=== PATIENT | male | born 1950 | race Caucasian/White ===

== ENCOUNTER 2018-12-28 10:37 | Emergency (ER) | payer MEDICARE, OTHER ==
[~2018-12-28] VITALS: Ht 182.9 cm; Wt 91.2 kg
[2018-12-28] MEDS ORDERED: NS IV 1000 ML 1,000 ML IV SCH (10:57)
--- NOTE | 2018-12-28 11:08 | ED Fall/Injury ---
General Stated Complaint: HEAD INJ; VOMITING Source: patient, family, spouse Exam Limitations: no limitations History of Present Illness Date Seen by Provider: Dec 28, 2018 Time Seen by Provider: 10:48 Initial Comments The patient presents to ER by private conveyance with chief complaint of a fall last night while taking the rain gauge when he turned around he lost his footing and balance and fell over onto his right knee and then struck the right side of his parietal scalp. He says he has a small hematoma there. He did not lose consciousness and did not think anything of it at the time. He says it took him a while to get back up but he didn't want to call an ambulance and made his way back in the house. His witnessed him fall. He said this morning however he woke up not feeling well with a headache and nauseated and started vomiting so he was brought in by family member/caregiver. To 3 days ago he was having a cough not feeling well and having chest pain on deep inspiration so he went to urgent care where he was diagnosed with a pneumonia and started on Levaquin which she has been taking for 2 days now. He says his cough is gone and he is feeling much better. He does have a history of smoking about 2 packs of cigarettes per day, drinking beer all day throughout the day and denies any recreational drug use. He is on Plavix. He has never had a heart attack or stent that he is aware of. He has had bowel obstruction resulting in abdominal surgeries but is not having any abdominal pain, diarrhea or constipation. He denies any fevers or chills recently. Daughter also noted some scaling red rash around the patient's pinon and scalp and wanted this addressed. Allergies and Home Medications Allergies Coded Allergies: No Known Drug Allergies (Unverified , 12/28/18) Home Medications Magnesium Oxide 400 Mg Tablet, 400 MG PO BID Prescribed by: NOMI ESPARZA on 12/28/18 1436 Ondansetron 4 Mg Tab.rapdis, 4 MG PO Q6H PRN for NAUSEA/VOMITING Prescribed by: NOMI ESPARZA on 12/28/18 1436 Patient Home Medication List Home Medication List Reviewed: Yes Review of Systems Review of Systems Constitutional: No chills, No fever; malaise, weakness Eyes: Denies Blindness, Denies Blurred Vision Ears, Nose, Mouth, Throat: denies ear pain, denies ear discharge Respiratory: No cough, No short of breath Cardiovascular: No chest pain, No edema, No Hx of Intervention, No palpitations Gastrointestinal: No abdominal pain, No constipation, No diarrhea; nausea, vomiting Genitourinary: No discharge, No dysuria Musculoskeletal: No back pain, No joint pain Skin: No pruritus, No rash; other (abrasion right knee anteriorly) Past Uvvecmt-Ootfhx-Biedmd Hx Patient Social History Alcohol Use: Regular Use Alcohol Beverage of Choice: Beer Recreational Drug Use: No Smoking Status: Current Everyday Smoker Type Used: Cigarettes (2 packs per day) Physical Exam Vital Signs Vital Signs - First Documented Capillary Refill : Height, Weight, BMI Height: '" Weight: lbs. oz. kg; BMI Method: General Appearance: WD/WN, mild distress HEENT: PERRL/EOMI, normal ENT inspection, TMs normal, pharynx normal (mildly dry tongue and oral mucosa), other (negative for raccoon eyes, Nelson sign, hemotympanum. Faintly perceptible hematoma right frontal parietal scalp) Neck: non-tender, full range of motion, normal inspection Cardiovascular: normal peripheral pulses, regular rate, rhythm Respiratory: chest non-tender, lungs clear, no respiratory distress, no accessory muscle use, decreased breath sounds Peripheral Pulses: 2+ Dorsalis Pedis (R), 2+ Left Dors-Pedis (L), 2+ Radial Pulses (R), 2+ Radial Pulses (L) Gastrointestinal: normal bowel sounds, non tender, soft, no organomegaly Extremities: normal range of motion, normal inspection, no pedal edema, normal capillary refill Neurologic/Psychiatric: 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, no motor/sensory deficits, alert, normal mood/affect, oriented x 3 Skin: other (abrasion right knee 2 x 3 cm superficial) Katie Coma Score Best Eye Response: (4) Open Spontaneously Best Verbal Response: (5) Oriented Best Motor Response: (6) Obeys Commands Katie Total: 15 Progress/Results/Core Measures Results/Orders Lab Results Laboratory Tests Test 12/28/18 11:04 12/28/18 14:15 Range/Units White Blood Count 10.8 4.3-11.0 10^3/uL Red Blood Count 4.55 4.35-5.85 10^6/uL Hemoglobin 14.6 13.3-17.7 G/DL Hematocrit 43 40-54 % Mean Corpuscular Volume 94 80-99 FL Mean Corpuscular Hemoglobin 32 25-34 PG Mean Corpuscular Hemoglobin Concent 34 32-36 G/DL Red Cell Distribution Width 12.1 10.0-14.5 % Platelet Count 359 130-400 10^3/uL Mean Platelet Volume 9.9 7.4-10.4 FL Neutrophils (%) (Auto) 79 H 42-75 % Lymphocytes (%) (Auto) 11 L 12-44 % Monocytes (%) (Auto) 8 0-12 % Eosinophils (%) (Auto) 1 0-10 % Basophils (%) (Auto) 1 0-10 % Neutrophils # (Auto) 8.5 H 1.8-7.8 X 10^3 Lymphocytes # (Auto) 1.2 1.0-4.0 X 10^3 Monocytes # (Auto) 0.9 0.0-1.0 X 10^3 Eosinophils # (Auto) 0.1 0.0-0.3 10^3/uL Basophils # (Auto) 0.1 0.0-0.1 10^3/uL Sodium Level 142 135-145 MMOL/L Potassium Level 3.2 L 3.6-5.0 MMOL/L Chloride Level 100 98-107 MMOL/L Carbon Dioxide Level 22 21-32 MMOL/L Anion Gap 20 H 5-14 MMOL/L Blood Urea Nitrogen 18 7-18 MG/DL Creatinine 0.89 0.60-1.30 MG/DL Estimat Glomerular Filtration Rate > 60 BUN/Creatinine Ratio 20 Glucose Level 115 H 70-105 MG/DL Calcium Level 8.5 8.5-10.1 MG/DL Corrected Calcium 8.3 L 8.5-10.1 MG/DL Magnesium Level 0.3 *L 1.8-2.4 MG/DL Total Bilirubin 0.8 0.1-1.0 MG/DL Aspartate Amino Transf (AST/SGOT) 13 5-34 U/L Alanine Aminotransferase (ALT/SGPT) 12 0-55 U/L Alkaline Phosphatase 68 40-136 U/L Pro-B-Type Natriuretic Peptide 360.6 H <75.0 PG/ML Total Protein 7.8 6.4-8.2 GM/DL Albumin 4.3 3.2-4.5 GM/DL Serum Alcohol < 10 <10 MG/DL Urine Color YELLOW Urine Clarity CLEAR Urine pH 6.0 5-9 Urine Specific [place] 1.020 1.016-1.022 Urine Protein 1+ H NEGATIVE Urine Glucose (UA) NEGATIVE NEGATIVE Urine Ketones 2+ H NEGATIVE Urine Nitrite NEGATIVE NEGATIVE Urine Bilirubin NEGATIVE NEGATIVE Urine Urobilinogen 2.0 NORMAL MG/DL Urine Leukocyte Esterase NEGATIVE NEGATIVE Urine RBC (Auto) NEGATIVE NEGATIVE Urine RBC 0-2 /HPF Urine WBC 0-2 /HPF Urine Squamous Epithelial Cells 2-5 /HPF Urine Crystals NONE /LPF Urine Bacteria NEGATIVE /HPF Urine Casts NONE /LPF Urine Mucus MODERATE H /LPF Urine Culture Indicated NO Urine Opiates Screen NEGATIVE NEGATIVE Urine Oxycodone Screen NEGATIVE NEGATIVE Urine Methadone Screen NEGATIVE NEGATIVE Urine Propoxyphene Screen NEGATIVE NEGATIVE Urine Barbiturates Screen NEGATIVE NEGATIVE Ur Tricyclic Antidepressants Screen NEGATIVE NEGATIVE Urine Phencyclidine Screen NEGATIVE NEGATIVE Urine Amphetamines Screen NEGATIVE NEGATIVE Urine Methamphetamines Screen NEGATIVE NEGATIVE Urine Benzodiazepines Screen NEGATIVE NEGATIVE Urine Cocaine Screen NEGATIVE NEGATIVE Urine Cannabinoids Screen NEGATIVE NEGATIVE My Orders Orders - NOMI ESPARZA Ct Head/Cervical Spine Wo (12/28/18 10:57) Alcohol (12/28/18 10:57) Cbc With Automated Diff (12/28/18 10:57) Comprehensive Metabolic Panel (12/28/18 10:57) Drug Screen Stat (Urine) (12/28/18 10:57) Magnesium (12/28/18 10:57) Ua Culture If Indicated (12/28/18 10:57) Probnp Fs (12/28/18 10:57) Chest 1 View Ap/Pa Only (12/28/18 10:57) Ed Iv/Invasive Line Start (12/28/18 10:57) Ns Iv 1000 Ml (Sodium Chloride 0.9%) (12/28/18 10:57) Magnesium 1 Gm/100 Ml Ivpb (Magnesium Alcazar (12/28/18 12:45) Magnesium Oxide Tablet (Mag Ox Tablet) (12/28/18 12:45) Potassium Chloride (Tablet) (K Dur Table (12/28/18 12:45) Dipht,Pertuss(Acell),Tet Adult (Boostrix (12/28/18 12:45) Medications Given in ED Current Medications Medications Dose Ordered Sig/Gabbie Route Start Time Stop Time Status Last Admin Dose Admin Diphtheria/ Tetanus/Acell Pertussis 0.5 ml ONCE ONCE IM 12/28/18 12:45 12/28/18 12:46 DC 12/28/18 12:53 0.5 ML Magnesium Oxide 400 mg ONCE ONCE PO 12/28/18 12:45 12/28/18 12:46 DC 12/28/18 12:51 400 MG Magnesium Sulfate/ Dextrose 100 ml @ 100 mls/hr ONCE ONCE IV 12/28/18 12:45 12/28/18 13:44 DC 12/28/18 12:51 100 MLS/HR Potassium Chloride 20 meq ONCE ONCE PO 12/28/18 12:45 12/28/18 12:46 DC 12/28/18 12:51 20 MEQ Vital Signs/I&O 12/28/18 12/28/18 10:46 10:46 Temp 98.3 98.3 Pulse 83 83 Resp 18 18 B/P (MAP) 178/89 (118) 178/89 (118) Pulse Ox 95 95 O2 Delivery Room Air Room Air Progress Progress Note #1: Time: 11:[address] of the head and C-spine. Chest x-ray to reevaluate for pneumonia. Labs urine alcohol UDS and a liter of fluids. Progress Note #2: Time: 12:34 Progress Note Potassium was marginally low so we are going to get him an oral potassium tablets but his magnesium was critically low which is unusual and so we had the lab run it again on the same analyzer and it came back still 0.3. We are going to give him some IV magnesium and put him on some oral magnesium outpatient. EKG. hypomagnesemia is thought to be due to his chronic alcohol dependence. Diagnostic Imaging Diagonstic Imaging: Xray Plain Films/CT/US/NM/MRI: chest (1v) Comments NAME: ROCCO LESLIE [facility] REC#: [id number] PT STATUS: REG ER : 1950 PHYSICIAN: NOMI ESPARZA MD ADMIT DATE: 12/28/18/ER FS Signed Date of Exam:12/28/18 CHEST 1 VIEW AP/PA ONLY INDICATION: Head injury from a fall Portable chest 11:06 AM There are postop changes from left shoulder reverse arthroplasty. There are degenerative changes in the right shoulder with acromiohumeral space narrowing and AC joint separation. Heart size and pulmonary vascularity are normal. Lungs are clear. There are no effusions or pneumothoraces. IMPRESSION: No acute abnormalities in the chest. Dictated by: Dictated on workstation # [id number] Dict: 12/28/18 1159 Trans: 12/28/18 1224 [facility] [id number] Interpreted by: YESENIA STUART MD Electronically signed by: YESENIA STUART MD 12/28/18 1224 Reviewed: Reviewed by Me Diagonstic Imaging: CT (noncontrast) Plain Films/CT/US/NM/MRI: c-spine, head Comments NAME: ROCCO LESLIE [facility] REC#: [id number] PT STATUS: REG ER : 1950 PHYSICIAN: NOMI ESPARZA MD ADMIT DATE: 12/28/18/ER FS Draft Date of Exam:12/28/18 CT HEAD/CERVICAL SPINE WO PROCEDURE: CT head and CT cervical spine without contrast. TECHNIQUE: Multiple contiguous axial images were obtained through the brain and cervical spine without the use of intravenous contrast. Sagittal and coronal reformations through the cervical spine were then performed. Auto Exposure Controls were utilized during the CT exam to meet ALARA standards for radiation dose reduction. INDICATION: Fall. Head injury. Nausea and vomiting. COMPARISON: None. FINDINGS: CT head: Advanced leukoaraiosis. Moderate generalized cerebral and cerebellar parenchymal volume loss. Low-attenuation subcentimeter region in the left dontrell. No intracranial hemorrhage, mass effect, hydrocephalus or extra-axial fluid collections. Chronic right lamina papyracea fracture. No acute fractures. The mastoids and paranasal sinuses are clear. CT cervical spine: Advanced diffuse degenerative endplate changes. Grade 1 anterolisthesis of C2 on C3 and C3 on C4. Reversal of the normal cervical lordosis. Vertebral body heights are preserved. No fractures. Posterior disc osteophyte complex does result in at least moderate spinal canal narrowing at C4-C5, C5-C6 and C6-C7. Moderate atherosclerotic calcifications including the carotid bifurcations. IMPRESSION: 1. Subcentimeter low-attenuation region in the left dontrell likely represents a chronic infarct but is technically age indeterminate. This could be further characterized with MRI. 2. 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 There is also likely multilevel high-grade spinal canal narrowing. This could be better evaluated with CT myelogram or MRI if clinically warranted. Dictated on workstation # [id number] Dict: 12/28/18 1156 Trans: 12/28/18 1213 [facility] [id number] Interpreted by: ARGELIA DOYLE MD Electronically signed by: Reviewed: Reviewed by Me Departure Impression Primary Impression: Fall Qualified Codes: W19.XXXA - Unspecified fall, initial encounter Additional Impressions: Scalp hematoma Qualified Codes: S00.03XA - Contusion of scalp, initial encounter Abrasion, right knee, initial encounter Hypomagnesemia Alcohol dependence Qualified Codes: F10.20 - Alcohol dependence, uncomplicated Eczema Qualified Codes: L30.9 - Dermatitis, unspecified Disposition: 01 HOME, SELF-CARE Condition: Stable Departure-Patient Inst. Decision time for Depature: 15:00 Referrals: NANDA CALVILLO MD (PCP/Family) Primary Care Physician Patient Instructions: Concussion, Adult (DC) Add. Discharge Instructions: Please review the handout on concussion and get some sleep today. If you have any symptoms of a concussion such as headache, use Tylenol or ibuprofen. If you have nausea use the Zofran 1 tablet every 6 hours under the tongue as necessary. If you have any other symptoms then you should just get some sleep. Avoid further injury to your head such as falls. 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 Continue taking the Levaquin to completion. cashier supervisor some [id number] cold or shampoo and use it daily on your pinon and scalp and see if that doesn't improve the skin. Scripts Magnesium Oxide (Magnesium Oxide) 400 Mg Tablet 400 MG PO BID for 7 Days, #14 TAB 0 Refills Prov: NOMI ESPARZA 12/28/18 Ondansetron (Ondansetron Odt) 4 Mg Tab.rapdis 4 MG PO Q6H PRN for NAUSEA/VOMITING, #8 TAB 0 Refills Prov: NOMI ESPARZA 12/28/18 NOMI ESPARZA Dec 28, 2018 11:08
[2018-12-28 11:20] LABS: HEMATOCRIT 43 % (40-54); HEMOGLOBIN 14.6 G/DL (13.3-17.7); MEAN CORPUSCULAR HEMOGLOBIN 32 PG (25-34); MEAN CORPUSCULAR HGB CONC 34 G/DL (32-36); MEAN CORPUSCULAR VOLUME 94 FL (80-99); WHITE BLOOD COUNT 10.8 10^3/uL (4.3-11.0)
[2018-12-28 11:21] LABS: BASOPHILS # (AUTO) 0.1 10^3/uL (0.0-0.1); BASOPHILS % (AUTO) 1 % (0-10); EOSINOPHILS # (AUTO) 0.1 10^3/uL (0.0-0.3); EOSINOPHILS % (AUTO) 1 % (0-10); LYMPHOCYTES # (AUTO) 1.2 X 10^3 (1.0-4.0); LYMPHOCYTES % (AUTO) 11 % (12-44); MEAN PLATELET VOLUME 9.9 FL (7.4-10.4); MONOCYTES # (AUTO) 0.9 X 10^3 (0.0-1.0); MONOCYTES % (AUTO) 8 % (0-12); NEUTROPHILS # (AUTO) 8.5 X 10^3 (1.8-7.8); NEUTROPHILS % (AUTO) 79 % (42-75); PLATELET COUNT 359 10^3/uL (130-400); RED CELL DISTRIBUTION WIDTH 12.1 % (10.0-14.5)
--- NOTE | 2018-12-28 12:14 | Diagnostic Imaging Report ---
PROCEDURE: CT head and CT cervical spine without contrast. TECHNIQUE: Multiple contiguous axial images were obtained through the brain and cervical spine without the use of intravenous contrast. Sagittal and coronal reformations through the cervical spine were then performed. Auto Exposure Controls were utilized during the CT exam to meet ALARA standards for radiation dose reduction. INDICATION: Fall. Head injury. Nausea and vomiting. COMPARISON: None. FINDINGS: CT head: Advanced leukoaraiosis. Moderate generalized cerebral and cerebellar parenchymal volume loss. Low-attenuation subcentimeter region in the left dontrell. No intracranial hemorrhage, mass effect, hydrocephalus or extra-axial fluid collections. Chronic right lamina papyracea fracture. No acute fractures. The mastoids and paranasal sinuses are clear. CT cervical spine: Advanced diffuse degenerative endplate changes. Grade 1 anterolisthesis of C2 on C3 and C3 on C4. Reversal of the normal cervical lordosis. Vertebral body heights are preserved. No fractures. Posterior disc osteophyte complex does result in at least moderate spinal canal narrowing at C4-C5, C5-C6 and C6-C7. Moderate atherosclerotic calcifications including the carotid bifurcations. IMPRESSION: 1. Subcentimeter low-attenuation region in the left dontrell likely represents a chronic infarct but is technically age indeterminate. This could be further characterized with MRI. 2. 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 There is also likely multilevel high-grade spinal canal narrowing. This could be better evaluated with CT myelogram or MRI if clinically warranted. Dictated by: Dictated on workstation # [id number]
--- NOTE | 2018-12-28 12:19 | Diagnostic Imaging Report ---
INDICATION: Head injury from a fall Portable chest 11:06 AM There are postop changes from left shoulder reverse arthroplasty. There are degenerative changes in the right shoulder with acromiohumeral space narrowing and AC joint separation. Heart size and pulmonary vascularity are normal. Lungs are clear. There are no effusions or pneumothoraces. IMPRESSION: No acute abnormalities in the chest. Dictated by: Dictated on workstation # [id number]
[2018-12-28 12:20] LABS: ALANINE AMINOTRANSFERASE 12 U/L (0-55); ALKALINE PHOSPHATASE 68 U/L (40-136); BILIRUBIN,TOTAL 0.8 MG/DL (0.1-1.0); BUN/CREATININE RATIO 20; CALCIUM 8.5 MG/DL (8.5-10.1); CARBON DIOXIDE 22 MMOL/L (21-32); CHLORIDE 100 MMOL/L (98-107); CREATININE SERUM 0.89 MG/DL (0.60-1.30); GFR ESTIMATED > 60; GLUCOSE 115 MG/DL (70-105); POTASSIUM 3.2 MMOL/L (3.6-5.0); SODIUM 142 MMOL/L (135-145)
[2018-12-28 12:21] LABS: ALBUMIN 4.3 GM/DL (3.2-4.5); TOTAL PROTEIN 7.8 GM/DL (6.4-8.2)
[2018-12-28 12:24] LABS: MAGNESIUM 0.3 MG/DL (1.8-2.4)
[2018-12-28] MEDS ORDERED: KCL 20 MEQ TAB (K-DUR) PO ONE (12:45)
[2018-12-28] MEDS ORDERED: MAGNESIUM 1 GM/100 ML IVPB 100 ML IV ONE (12:45)
[2018-12-28] MEDS ORDERED: MAGNESIUM OXIDE (MAG-OX)400 MG TAB PO ONE (12:45)
[2018-12-28] MEDS ORDERED: TETANUS,DIPTH,PERTUSS P/F (BOOSTRIX) 0.5 ML VIAL IM ONE (12:45)
[2018-12-28] MEDS ORDERED: MAGN400T6 PO (14:36)
[2018-12-28] MEDS ORDERED: ONDA4TAB11 PO (14:36)
[2018-12-28 14:53] LABS: BACTERIA,URINE NEGATIVE /HPF; BILIRUBIN,URINE NEGATIVE (NEGATIVE); CLARITY,URINE CLEAR; COLOR,URINE YELLOW; GLUCOSE, URINE (UA) NEGATIVE (NEGATIVE); KETONES,URINE 2+ (NEGATIVE); LEUKOCYTE ESTERASE ,URINE NEGATIVE (NEGATIVE); NITRITE,URINE NEGATIVE (NEGATIVE); PROTEIN,URINE 1+ (NEGATIVE); RBC,URINE 0-2 /HPF; WBC,URINE 0-2 /HPF
[2018-12-28 14:55] LABS: AMPHETAMINE SCREEN, URINE NEGATIVE (NEGATIVE); BARBITURATE SCREEN URINE NEGATIVE (NEGATIVE); BENZODIAZEPINES SCREEN URINE NEGATIVE (NEGATIVE); CANNABINOID SCREEN, URINE NEGATIVE (NEGATIVE); COCAINE SCREEN URINE NEGATIVE (NEGATIVE); METHADONE STAT NEGATIVE (NEGATIVE); METHAMPHETAMINE SCREEN URINE S NEGATIVE (NEGATIVE); OPIATE SCREEN URINE NEGATIVE (NEGATIVE); OXYCODONE STAT NEGATIVE (NEGATIVE); PROPOXYPHENE STAT NEGATIVE (NEGATIVE); TRICYCLIC ANTIDEPRESSANTS SCRE NEGATIVE (NEGATIVE)
[2018-12-28 15:49] VITALS: BP 154/90
== END 2018-12-28 15:49 | disposition home or self-care (01) ==
LOC: ER FS 10:39
DX: S00.03XA Contusion of scalp, initial encounter (principal); S80.211A Abrasion, right knee, initial encounter; F10.20 Alcohol dependence, uncomplicated; E83.42 Hypomagnesemia; L30.9 Dermatitis, unspecified; F17.210 Nicotine dependence, cigarettes, uncomplicated; R40.2142 Coma scale, eyes open, spontaneous, at arrival to emergency department; R40.2252 Coma scale, best verbal response, oriented, at arrival to emergency department; R40.2362 Coma scale, best motor response, obeys commands, at arrival to emergency department; Z87.01 Personal history of pneumonia (recurrent); Z79.02 Long term (current) use of antithrombotics/antiplatelets; Y90.0 Blood alcohol level of less than 20 mg/100 ml; W01.198A Fall on same level from slipping, tripping and stumbling with subsequent striking against other object, initial encounter
CPT/HCPCS: 36415; 70450; 71045; 72125; 80053; 80306; 80320; 81000; 83735; 83880; 85025; 90471; 90715; 96361; 96374

== ENCOUNTER → 2019-03-06 | Outpatient (CLI) | payer MEDICARE, OTHER ==
[~2019-03-06] MED LIST: MAGN400T6 PO; ONDA4TAB11 PO
--- NOTE | 2019-03-06 13:44 | Diagnostic Imaging Report ---
INDICATION: RIB PAIN COMPARISON: 12/28/2018 FINDINGS: Frontal and lateral views of the chest demonstrate normal heart size and pulmonary vascularity. The lungs are clear. There are no signs of infiltrate, pleural effusions or pneumothoraces. The visualized osseous structures show no acute abnormalities. IMPRESSION: 1. No acute process. No signs of infiltrates, effusions or pneumothoraces. Dictated by: Dictated on workstation # [id number]
[2019-03-06 14:33] LABS: BASOPHILS % (AUTO) 1 % (0-10); EOSINOPHILS % (AUTO) 2 % (0-10); HEMATOCRIT 41 % (40-54); HEMOGLOBIN 14.1 G/DL (13.3-17.7); LYMPHOCYTES # (AUTO) 1.9 X 10^3 (1.0-4.0); LYMPHOCYTES % (AUTO) 18 % (12-44); MEAN CORPUSCULAR HEMOGLOBIN 32 PG (25-34); MEAN CORPUSCULAR HGB CONC 35 G/DL (32-36); MEAN CORPUSCULAR VOLUME 93 FL (80-99); MEAN PLATELET VOLUME 10.8 FL (7.4-10.4); MONOCYTES % (AUTO) 7 % (0-12); NEUTROPHILS # (AUTO) 7.5 X 10^3 (1.8-7.8); NEUTROPHILS % (AUTO) 72 % (42-75); PLATELET COUNT 277 10^3/uL (130-400); RED CELL DISTRIBUTION WIDTH 13.9 % (10.0-14.5); WHITE BLOOD COUNT 10.4 10^3/uL (4.3-11.0)
[2019-03-06 14:34] LABS: BASOPHILS # (AUTO) 0.1 10^3/uL (0.0-0.1); EOSINOPHILS # (AUTO) 0.2 10^3/uL (0.0-0.3); MONOCYTES # (AUTO) 0.7 X 10^3 (0.0-1.0)
[2019-03-06 15:16] LABS: POTASSIUM 3.4 MMOL/L (3.6-5.0); SODIUM 138 MMOL/L (135-145)
[2019-03-06 15:17] LABS: ALANINE AMINOTRANSFERASE 8 U/L (0-55); ALBUMIN 4.3 GM/DL (3.2-4.5); ALKALINE PHOSPHATASE 73 U/L (40-136); BILIRUBIN,TOTAL 0.6 MG/DL (0.1-1.0); BUN/CREATININE RATIO 12; CALCIUM 8.3 MG/DL (8.5-10.1); CARBON DIOXIDE 23 MMOL/L (21-32); CHLORIDE 97 MMOL/L (98-107); CREATININE SERUM 0.89 MG/DL (0.60-1.30); GFR ESTIMATED > 60; GLUCOSE 112 MG/DL (70-105); TOTAL PROTEIN 7.6 GM/DL (6.4-8.2)
== END ==
LOC: RAD FS 13:24
PROVIDERS: ATTEND Nurse Practitioner Family
DX: R07.81 Pleurodynia (principal); R09.89 Other specified symptoms and signs involving the circulatory and respiratory systems; R42 Dizziness and giddiness
CPT/HCPCS: 36415; 71046; 80053; 83880; 85025

== ENCOUNTER 2019-03-14 15:17 | Inpatient (IN) | payer MEDICARE, OTHER | END 2019-03-19 14:30 | disposition home health service (06) | LOC: ER FS 15:17 → 4TH 03-15 12:58 → ICU 17:25 → 4TH 03-15 13:00 | DX: E83.42 Hypomagnesemia (principal); E87.6 Hypokalemia; R42 Dizziness and giddiness; I10 Essential (primary) hypertension; E78.00 Pure hypercholesterolemia, unspecified; F10.20 Alcohol dependence, uncomplicated; F17.210 Nicotine dependence, cigarettes, uncomplicated; F32.9 Major depressive disorder, single episode, unspecified; R29.701 NIHSS score 1; Z86.73 Personal history of transient ischemic attack (TIA), and cerebral infarction without residual deficits; Z97.4 Presence of external hearing-aid ==

== ENCOUNTER 2019-03-27 14:36 | Emergency (ER) | payer MEDICARE, OTHER ==
[~2019-03-27] VITALS: Ht 180.3 cm; Wt 81.8 kg
[~2019-03-27 14:36] MED LIST changes: +AMLO10TA7 PO; +ASPI325T32 PO; +ATEN50TA PO; +CLOP75TA69 PO; +CYAN1TAB26 PO; +FLUO20CA42 PO; +FURO-125 PO; +GARL1000 PO; +LISI-552 PO; +MAGN250T2 PO; +MULT1TAB69 PO; +OMEP20CA13 PO; +PHOS250T5 PO; +PRAV40TA2 PO
[2019-03-27 15:22] LABS: HEMATOCRIT 41 % (40-54); HEMOGLOBIN 14.2 G/DL (13.3-17.7); MEAN CORPUSCULAR HEMOGLOBIN 32 PG (25-34); MEAN CORPUSCULAR HGB CONC 35 G/DL (32-36); MEAN CORPUSCULAR VOLUME 93 FL (80-99); PLATELET COUNT 354 10^3/uL (130-400); RED CELL DISTRIBUTION WIDTH 13.4 % (10.0-14.5)
[2019-03-27 15:23] LABS: BASOPHILS # (AUTO) 0.1 10^3/uL (0.0-0.1); BASOPHILS % (AUTO) 1 % (0-10); EOSINOPHILS # (AUTO) 0.2 10^3/uL (0.0-0.3); EOSINOPHILS % (AUTO) 1 % (0-10); LYMPHOCYTES # (AUTO) 2.3 X 10^3 (1.0-4.0); LYMPHOCYTES % (AUTO) 21 % (12-44); MONOCYTES % (AUTO) 9 % (0-12); NEUTROPHILS # (AUTO) 7.5 X 10^3 (1.8-7.8); NEUTROPHILS % (AUTO) 68 % (42-75)
[2019-03-27] MEDS ORDERED: PRENATAL VITAMIN 1 EA TAB PO SCH (15:30)
[2019-03-27] MEDS ORDERED: THIAMINE 100 MG/ML 2 ML (VITAMIN B-1) VIAL IV ONE (15:30)
[2019-03-27 15:34] LABS: BUN/CREATININE RATIO 10; CALCIUM 9.1 MG/DL (8.5-10.1); CARBON DIOXIDE 23 MMOL/L (21-32); CHLORIDE 94 MMOL/L (98-107); CREATININE SERUM 0.94 MG/DL (0.60-1.30); GFR ESTIMATED > 60; GLUCOSE 92 MG/DL (70-105); POTASSIUM 3.9 MMOL/L (3.6-5.0); SODIUM 132 MMOL/L (135-145)
[2019-03-27] MEDS: MAGNESIUM 1 GM/100 ML IVPB 100 ML IV SCH ×2 (15:34→16:50)
[2019-03-27 15:35] LABS: ALANINE AMINOTRANSFERASE 13 U/L (0-55); ALBUMIN 4.6 GM/DL (3.2-4.5); ALKALINE PHOSPHATASE 77 U/L (40-136); BILIRUBIN,TOTAL 0.6 MG/DL (0.1-1.0); MAGNESIUM 0.5 MG/DL (1.6-2.4); TOTAL PROTEIN 7.8 GM/DL (6.4-8.2)
--- NOTE | 2019-03-27 16:16 | ED General ---
General Chief Complaint: General Problems/Pain Stated Complaint: LOW MAGNESIUM Nursing Triage Note: Pt arrived by private vehicle with chief complaint of low mag level. Pt was seen in Dr. Calvillo's office yesterday and was told to go to the ER for low mag level. One week and five days ago pt stated he was seen for low mag and received 5 bags of Mag. Pt is alert, oriented and ambulatory at arrival. Pt denies any issues except he was told his mag was low. Nursing Sepsis Screen: No Definite Risk History of Present Illness Date Seen by Provider: Mar 27, 2019 Time Seen by Provider: 14:00 Initial Comments The patient is a 69-year-old male with a history of hypertension and chronic alcoholism as well as tobacco abuse. He presents with concern for hypomagnesemia. Patient had a magnesium level measured in the clinic yesterday and was found to be 0.5. Today he was called and referred to the emergency department. He has absolutely no complaints and states he feels well and specifically denies fevers, nausea or vomiting, headache, focal weakness, numbness, tingling, neck stiffness, vision changes, shortness of breath, chest pain, abdominal pain, flank pain, back pain, dysuria or hematuria, changes in bowel habits. Symptoms occur in the setting of a several day admission to [facility] last week for hypomagnesemia, hypokalemia and hypophosphatemia. Patient had his electrolytes repleted and was dismissed once they were satisfactory. His symptoms were ascribed to his alcohol abuse. He was encouraged to abstain but has not. He was discharged with oral magnesium supplementation which he states he's been taking daily. Allergies and Home Medications Allergies Coded Allergies: No Known Drug Allergies (Unverified , 12/28/18) Home Medications Amlodipine Besylate 10 Mg Tablet, 10 MG PO DAILY, (Reported) Aspirin 325 Mg Tablet.dr, 325 MG PO DAILY, (Reported) Atenolol 50 Mg Tablet, 50 MG PO DAILY, (Reported) LAST FILLED #90 10-30-18 Clopidogrel Bisulfate 75 Mg Tablet, 75 MG PO DAILY, (Reported) Cyanocobalamin/Folic Acid 1 Each Tablet, 1 TAB PO DAILY, (Reported) Fluoxetine HCl 20 Mg Capsule, 20 MG PO DAILY, (Reported) Garlic 1,000 Mg Capsule, 1,000 MG PO DAILY, (Reported) Lisinopril 20 Mg Tablet, 40 MG PO DAILY, (Reported) TAKES 2 (20MG) TABLETS Magnesium 250 Mg Tablet, 250 MG PO BID Prescribed by: GIL DICKINSON on 03/19/19 1011 Multivitamin 1 Each Tablet, 1 TAB PO DAILY, (Reported) Omeprazole 20 Mg Capsule.dr, 20 MG PO DAILY, (Reported) Phosphate 1 Ea Tablet, 1 EA PO BID Prescribed by: GIL DICKINSON on 03/19/19 1011 Pravastatin Sodium 40 Mg Tablet, 40 MG PO DAILY, (Reported) Patient Home Medication List Home Medication List Reviewed: Yes Review of Systems Review of Systems Constitutional: see HPI All Other Systems Reviewed Negative Unless Noted: Yes (Negative excepted noted.) Past Fibragj-Elguxh-Cxbaeo Hx Past Med/Social Hx: Reviewed Nursing Past Med/Soc Hx Patient Social History Alcohol Beverage of Choice: Beer Type Used: Cigarettes 2nd Hand Smoke Exposure: No Recent Foreign Travel: No Contact w/Someone Who Travel: No Recent Infectious Disease Expo: No Recent Hopitalizations: No Physical Abuse: No Sexual Abuse: No Mistreated: No Fear: No Immunizations Up To Date Tetanus Booster (TDap): Unknown Date of Pneumonia Vaccine: Jun 03, 2018 Seasonal Allergies Seasonal Allergies: No Past Medical History Surgeries: Yes Appendectomy, Bowel Surgery, Gallbladder, Orthopedic Respiratory: No Cardiac: Yes High Cholesterol, Hypertension Neurological: Yes Stroke Genitourinary: No Gastrointestinal: No Musculoskeletal: No Endocrine: No HEENT: Yes Hearing Impairment: Hearing Aide Left Cancer: No Psychosocial: Yes Depression Integumentary: No Blood Disorders: No Family Medical History Reviewed Nursing Family Hx No Pertinent Family Hx patient states he does not know Physical Exam Vital Signs Vital Signs - First Documented 03/27/19 14:45 Temp 36.8 Pulse 95 Resp 24 B/P (MAP) 150/91 (110) Pulse Ox 93 O2 Delivery Room Air Capillary Refill : Less Than 3 Seconds Height, Weight, BMI Height: 6'0" Weight: 199lbs. 0.7oz. [id number]; 25.00 BMI Method:Stated General Appearance: No Apparent Distress Comments This is an elderly male appearing nontoxic and in no acute distress. Head is normocephalic and atraumatic. Neck is supple and nontender. Oropharynx is moist. Lungs are clear to auscultation in all stations. There is a normal S1 and S2 without rubs or gallops and capillary refill is appropriate, less than 2 seconds globally. Abdomen is soft, nontender and nondistended. Skin is warm and dry without cyanosis, clubbing or edema. Psychiatrically, the patient de monstrates appropriate mood and affect and is alert. Progress/Results/Core Measures Suspected Sepsis Recent Fever Within 48 Hours: No Infection Criteria Present: None New/Unexplained Altered Menta: No Sepsis Screen: No Definite Risk SIRS Temperature: Pulse: 95 Respiratory Rate: 24 Laboratory Tests 03/27/19 14:45: White Blood Count 11.0 Blood Pressure 150 /91 Mean: 110 Laboratory Tests 03/27/19 14:45: Creatinine 0.94, Platelet Count 354, Total Bilirubin 0.6 Results/Orders Lab Results Laboratory Tests Test 03/27/19 14:45 Range/Units White Blood Count 11.0 4.3-11.0 10^3/uL Red Blood Count 4.40 4.35-5.85 10^6/uL Hemoglobin 14.2 13.3-17.7 G/DL Hematocrit 41 40-54 % Mean Corpuscular Volume 93 80-99 FL Mean Corpuscular Hemoglobin 32 25-34 PG Mean Corpuscular Hemoglobin Concent 35 32-36 G/DL Red Cell Distribution Width 13.4 10.0-14.5 % Platelet Count 354 130-400 10^3/uL Mean Platelet Volume 10.0 7.4-10.4 FL Neutrophils (%) (Auto) 68 42-75 % Lymphocytes (%) (Auto) 21 12-44 % Monocytes (%) (Auto) 9 0-12 % Eosinophils (%) (Auto) 1 0-10 % Basophils (%) (Auto) 1 0-10 % Neutrophils # (Auto) 7.5 1.8-7.8 X 10^3 Lymphocytes # (Auto) 2.3 1.0-4.0 X 10^3 Monocytes # (Auto) 1.0 0.0-1.0 X 10^3 Eosinophils # (Auto) 0.2 0.0-0.3 10^3/uL Basophils # (Auto) 0.1 0.0-0.1 10^3/uL Sodium Level 132 L 135-145 MMOL/L Potassium Level 3.9 3.6-5.0 MMOL/L Chloride Level 94 L 98-107 MMOL/L Carbon Dioxide Level 23 21-32 MMOL/L Anion Gap 15 H 5-14 MMOL/L Blood Urea Nitrogen 9 7-18 MG/DL Creatinine 0.94 0.60-1.30 MG/DL Estimat Glomerular Filtration Rate > 60 BUN/Creatinine Ratio 10 Glucose Level 92 70-105 MG/DL Calcium Level 9.1 8.5-10.1 MG/DL Corrected Calcium 8.5-10.1 MG/DL Magnesium Level 0.5 *L 1.6-2.4 MG/DL Total Bilirubin 0.6 0.1-1.0 MG/DL Aspartate Amino Transf (AST/SGOT) 19 5-34 U/L Alanine Aminotransferase (ALT/SGPT) 13 0-55 U/L Alkaline Phosphatase 77 40-136 U/L Total Protein 7.8 6.4-8.2 GM/DL Albumin 4.6 H 3.2-4.5 GM/DL Serum Alcohol 60 H <10 MG/DL My Orders Orders - MARITA MIJARES MD Cbc With Automated Diff (03/27/19 15:12) Comprehensive Metabolic Panel (03/27/19 15:12) Magnesium (03/27/19 15:12) Phosphorus (03/27/19 15:12) Ekg Tracing (03/27/19 15:12) Magnesium 1 Gm/100 Ml Ivpb (Magnesium Alcazar (03/27/19 15:15) Alcohol (03/27/19 15:15) Vitamin (Vitamins ()) (03/27/19 15:30) Thiamine Injection (Vitamin B-1 Injectio (03/27/19 15:30) Medications Given in ED Current Medications Medications Dose Ordered Sig/Gabbie Route Start Time Stop Time Status Last Admin Dose Admin Thiamine HCl 200 mg ONCE ONCE IV 03/27/19 15:30 03/27/19 15:31 DC 03/27/19 15:55 200 MG Vital Signs/I&O 03/27/19 14:45 Temp 36.8 Pulse 95 Resp 24 B/P (MAP) 150/91 (110) Pulse Ox 93 O2 Delivery Room Air Capillary Refill : Less Than 3 Seconds Blood Pressure Mean: 110 Progress Note : Time: 16:23 Progress Note Magnesium significantly deranged but other lab values are within normal limits. Patient given a dose of thiamine here and have started magnesium repletion as well although I anticipate this will require further in-hospital treatment, particularly as patient will need to be monitored on telemetry during electrolyte replacement. EKG nonacute without interval abnormalities. Case is discussed with Dr. Dickinson at [facility] who agrees with me that the patient likely needs nephrology attention given lack of resolution of his hypomagnesemia after his last admission. We will therefore transfer to [facility] for inpatient admission and further care. He is graciously accepted for admission by Dr. Vargas. ECG Comment Sinus rhythm, rate 81, no acute ST elevation or depression, NV 172, QRS 94, QTc 454, EP interpretation. Departure Impression Primary Impression: Magnesium deficiency syndrome Additional Impression: Alcohol abuse Disposition: XFER SHT-TRM HOSP Condition: Improved Departure-Patient Inst. Referrals: NANDA CALVILLO MD (PCP/Family) Primary Care Physician MARITA MIJARES MD Mar 27, 2019 16:16
--- NOTE | 2019-03-27 18:55 | NUR ---
EMS will be here at 2000 to take patient.
[2019-03-27 19:10] VITALS: BP 140/61
--- NOTE | 2019-03-27 20:35 | NUR ---
Report was given to JENNIFER Brewster at this time. Care was transferred. Patient left at this time.
[2019-03-27 22:27] LABS: PHOSPHORUS 2.8 MG/DL (2.3-4.7)
== END 2019-03-27 20:35 | disposition short-term general hospital (02) ==
LOC: EDUNIT# 14:36 → ER FS 14:37
DX: E61.2 Magnesium deficiency (principal); F10.20 Alcohol dependence, uncomplicated; I10 Essential (primary) hypertension; E78.00 Pure hypercholesterolemia, unspecified; F32.9 Major depressive disorder, single episode, unspecified; Z86.73 Personal history of transient ischemic attack (TIA), and cerebral infarction without residual deficits; Z79.82 Long term (current) use of aspirin; Z79.02 Long term (current) use of antithrombotics/antiplatelets; Z90.49 Acquired absence of other specified parts of digestive tract; Y90.3 Blood alcohol level of 60-79 mg/100 ml
CPT/HCPCS: 36415; 80053; 80320; 83735; 84100; 85025; 93005; 96365; 96366

== ENCOUNTER 2019-04-03 16:21 | Emergency (ER) | payer MEDICARE, OTHER ==
[~2019-04-03] VITALS: Ht 182.8 cm; Wt 90.8 kg
[2019-04-03] MEDS ORDERED: MAGNESIUM OXIDE (MAG-OX)400 MG TAB PO ONE (17:15)
--- NOTE | 2019-04-03 17:55 | ED General ---
General Chief Complaint: General Problems/Pain Stated Complaint: LOW MAGNESIUM Nursing Triage Note: Patient c/o of low magnesium. States he had his lab drawn this morning at [facility] and they called him and told him to come to the ED because his magnesium level is low. Patient denies any other complaints at this time. Nursing Sepsis Screen: No Definite Risk Source of Information: Patient History of Present Illness Date Seen by Provider: Apr 03, 2019 Time Seen by Provider: 15:49 Initial Comments Patient is a 69-year-old male with history of chronic alcoholism and low magnesium levels who presents with abnormal outpatient labs. Patient had a magnesium level 0.5 one week ago and was admitted to [facility] given IV magnesium and discharged home on oral magnesium which the patient states he is taking 2 pills twice daily. Patient is unsure of dose per please. 100 mg tablets. Patient denies nausea vomiting, diarrhea but does continue to d rink alcohol. Denies chest pain palpitations or recent seizures. Denies muscle twitching or uncontrolled contractions. No other acute symptoms or complaints. Patient's magnesium level this morning was 0.8 on outpatient labs. Associated Systoms: Denies Symptoms Allergies and Home Medications Allergies Coded Allergies: No Known Drug Allergies (Unverified , 12/28/18) Home Medications Amlodipine Besylate 10 Mg Tablet, 10 MG PO DAILY, (Reported) Aspirin 325 Mg Tablet.dr, 325 MG PO DAILY, (Reported) Atenolol 50 Mg Tablet, 50 MG PO DAILY, (Reported) LAST FILLED #90 10-30-18 Clopidogrel Bisulfate 75 Mg Tablet, 75 MG PO DAILY, (Reported) Cyanocobalamin/Folic Acid 1 Each Tablet, 1 TAB PO DAILY, (Reported) Fluoxetine HCl 20 Mg Capsule, 20 MG PO DAILY, (Reported) Garlic 1,000 Mg Capsule, 1,000 MG PO DAILY, (Reported) Lisinopril 20 Mg Tablet, 40 MG PO DAILY, (Reported) TAKES 2 (20MG) TABLETS Magnesium 250 Mg Tablet, 250 MG PO BID Prescribed by: GIL DICKINSON on 03/19/19 1011 Multivitamin 1 Each Tablet, 1 TAB PO DAILY, (Reported) Omeprazole 20 Mg Capsule.dr, 20 MG PO DAILY, (Reported) Phosphate 1 Ea Tablet, 1 EA PO BID Prescribed by: GIL DICKINSON on 03/19/19 1011 Pravastatin Sodium 40 Mg Tablet, 40 MG PO DAILY, (Reported) Patient Home Medication List Home Medication List Reviewed: Yes Review of Systems Review of Systems Constitutional: see HPI EENTM: no symptoms reported Respiratory: no symptoms reported Cardiovascular: no symptoms reported Gastrointestinal: no symptoms reported Genitourinary: no symptoms reported Musculoskeletal: no symptoms reported Skin: no symptoms reported Psychiatric/Neurological: No Symptoms Reported Past Ltjeskt-Szkncn-Nokncc Hx Past Med/Social Hx: Reviewed Nursing Past Med/Soc Hx Patient Social History Alcohol Use: Rarely Uses Number of Drinks Today: AA Alcohol Beverage of Choice: Beer Recreational Drug Use: No Type Used: Cigarettes 2nd Hand Smoke Exposure: No Recent Foreign Travel: No Contact w/Someone Who Travel: No Recent Infectious Disease Expo: No Recent Hopitalizations: No Physical Abuse: No Sexual Abuse: No Mistreated: No Fear: No Immunizations Up To Date Tetanus Booster (TDap): Unknown Date of Pneumonia Vaccine: Jun 03, 2018 Seasonal Allergies Seasonal Allergies: No Past Medical History Surgeries: Yes Appendectomy, Bowel Surgery, Gallbladder, Orthopedic Respiratory: No Cardiac: Yes High Cholesterol, Hypertension Neurological: Yes Stroke Genitourinary: No Gastrointestinal: No Musculoskeletal: No Endocrine: No HEENT: Yes Hearing Impairment: Hearing Aide Left Cancer: No Psychosocial: Yes Depression Integumentary: No Blood Disorders: No Family Medical History No Pertinent Family Hx patient states he does not know Physical Exam Vital Signs Vital Signs - First Documented 04/03/19 16:25 Temp 36.7 Pulse 80 Resp 18 B/P (MAP) 146/74 (98) Pulse Ox 95 O2 Delivery Room Air Capillary Refill : Less Than 3 Seconds Height, Weight, BMI Height: 6'0" Weight: 199lbs. 0.7oz. 90.144565ks; 27.00 BMI Method:Stated General Appearance: No Apparent Distress, WD/WN, Chronically ill Eyes: Bilateral Eye Normal Inspection, Bilateral Eye PERRL, Bilateral Eye EOMI HEENT: Pharynx Normal Neck: Supple Respiratory: Lungs Clear, Normal Breath Sounds Cardiovascular: Regular Rate, Rhythm Gastrointestinal: Normal Bowel Sounds, Non Tender, Soft Extremity: Normal Capillary Refill Neurologic/Psychiatric: Alert, Oriented x3, No Motor/Sensory Deficits Skin: Normal Color Focused Exam Sepsis Stage: Ruled Out Progress/Results/Core Measures Suspected Sepsis Recent Fever Within 48 Hours: No Infection Criteria Present: None New/Unexplained Altered Menta: No Sepsis Screen: No Definite Risk SIRS Temperature: Pulse: 80 Respiratory Rate: 18 Blood Pressure 146 /74 Mean: 98 Results/Orders My Orders Orders - OIB MORA DO Ekg Tracing (04/03/19 16:43) Magnesium Oxide Tablet (Mag Ox Tablet) (04/03/19 17:15) Medications Given in ED Current Medications Medications Dose Ordered Sig/Agbbie Route Start Time Stop Time Status Last Admin Dose Admin Magnesium Oxide 400 mg ONCE ONCE PO 04/03/19 17:15 04/03/19 17:16 DC 04/03/19 17:18 400 MG Vital Signs/I&O 04/03/19 16:25 Temp 36.7 Pulse 80 Resp 18 B/P (MAP) 146/74 (98) Pulse Ox 95 O2 Delivery Room Air Capillary Refill : Less Than 3 Seconds Blood Pressure Mean: 98 Departure Communication (Admissions) EKG: Normal sinus rhythm, normal QRS interval, normal peak T waves. Labs, case discussed and reviewed with Dr. Denise. Patient does not have acute symptoms, tremors or abnormal EKG findings. 400 mg of oral magnesium given in the emergency department. Recommendations are to follow up with PCP for further coordination intact titration of magnesium levels. Impression Primary Impression: Hypomagnesemia Disposition: HOME, SELF-CARE Condition: Stable Departure-Patient Inst. Decision time for Depature: 17:55 Referrals: NANDA CALVILLO MD (PCP/Family) Primary Care Physician Patient Instructions: Low Magnesium Level Add. Discharge Instructions: Please follow up with your PCP tomorrow for further dosing instructions of magnesium and repeat lab testing later this week. In the meantime, take your prescription magnesium as scheduled. All discharge instructions reviewed with patient and/or family. Voiced understanding. OBI MORA DO Apr 03, 2019 17:54
[2019-04-03 18:09] VITALS: BP 128/72
== END 2019-04-03 18:05 | disposition home or self-care (01) ==
LOC: EDUNIT# 16:21 → ER FS 16:22
DX: E83.42 Hypomagnesemia (principal); I10 Essential (primary) hypertension; E78.00 Pure hypercholesterolemia, unspecified; F32.9 Major depressive disorder, single episode, unspecified; Z86.73 Personal history of transient ischemic attack (TIA), and cerebral infarction without residual deficits; Z79.82 Long term (current) use of aspirin; Z79.02 Long term (current) use of antithrombotics/antiplatelets; Z90.49 Acquired absence of other specified parts of digestive tract
CPT/HCPCS: 93005

== ENCOUNTER → 2019-04-03 | Outpatient (CLI) | payer MEDICARE, OTHER ==
[2019-04-03 12:47] LABS: HEMATOCRIT 39 % (40-54); HEMOGLOBIN 13.2 G/DL (13.3-17.7); MEAN CORPUSCULAR HEMOGLOBIN 32 PG (25-34); MEAN CORPUSCULAR HGB CONC 34 G/DL (32-36); MEAN CORPUSCULAR VOLUME 95 FL (80-99); MEAN PLATELET VOLUME 9.5 FL (7.4-10.4); PLATELET COUNT 331 10^3/uL (130-400); RED CELL DISTRIBUTION WIDTH 13.6 % (10.0-14.5); WHITE BLOOD COUNT 8.1 10^3/uL (4.3-11.0)
[2019-04-03 12:48] LABS: BASOPHILS # (AUTO) 0.1 10^3/uL (0.0-0.1); BASOPHILS % (AUTO) 1 % (0-10); EOSINOPHILS # (AUTO) 0.2 10^3/uL (0.0-0.3); EOSINOPHILS % (AUTO) 3 % (0-10); LYMPHOCYTES # (AUTO) 2.1 X 10^3 (1.0-4.0); LYMPHOCYTES % (AUTO) 25 % (12-44); MONOCYTES % (AUTO) 12 % (0-12); NEUTROPHILS # (AUTO) 4.8 X 10^3 (1.8-7.8); NEUTROPHILS % (AUTO) 59 % (42-75)
[2019-04-03 13:21] LABS: BUN/CREATININE RATIO 9; CARBON DIOXIDE 24 MMOL/L (21-32); CHLORIDE 93 MMOL/L (98-107); CREATININE SERUM 0.89 MG/DL (0.60-1.30); GFR ESTIMATED > 60; POTASSIUM 3.9 MMOL/L (3.6-5.0); SODIUM 130 MMOL/L (135-145)
[2019-04-03 13:22] LABS: ALANINE AMINOTRANSFERASE 13 U/L (0-55); ALBUMIN 4.4 GM/DL (3.2-4.5); ALKALINE PHOSPHATASE 69 U/L (40-136); BILIRUBIN,TOTAL 0.3 MG/DL (0.1-1.0); GLUCOSE 88 MG/DL (70-105); TOTAL PROTEIN 7.2 GM/DL (6.4-8.2)
[2019-04-03 13:30] LABS: MAGNESIUM 0.8 MG/DL (1.6-2.4)
== END ==
LOC: LAB FS 12:02
PROVIDERS: ATTEND Nurse Practitioner Family
DX: Z09 Encounter for follow-up examination after completed treatment for conditions other than malignant neoplasm (principal); E83.42 Hypomagnesemia
CPT/HCPCS: 36415; 80053; 83735; 84100; 85025

== ENCOUNTER 2020-05-20 19:49 | Inpatient (IN) | payer MEDICARE, OTHER ==
[~2020-05-20] VITALS: Ht 180.3 cm; Wt 101.8 kg
[~2020-05-20 19:49] MED LIST changes: +AMLO-251 PO; -AMLO10TA7 PO; -MAGN400T6 PO; +MAGN400T8 PO; +MULT-567 PO; -MULT1TAB69 PO; -OMEP20CA13 PO; +OMEP20CA18 PO
[2020-05-20 20:29] LABS: BASOPHILS # (AUTO) 0.1 10^3/uL (0.0-0.1); BASOPHILS % (AUTO) 0 % (0-10); EOSINOPHILS # (AUTO) 0.2 10^3/uL (0.0-0.3); EOSINOPHILS % (AUTO) 2 % (0-10); HEMATOCRIT 37 % (40-54); HEMOGLOBIN 12.8 G/DL (13.3-17.7); LYMPHOCYTES # (AUTO) 3.2 X 10^3 (1.0-4.0); LYMPHOCYTES % (AUTO) 27 % (12-44); MEAN CORPUSCULAR HEMOGLOBIN 33 PG (25-34); MEAN CORPUSCULAR HGB CONC 35 G/DL (32-36); MEAN CORPUSCULAR VOLUME 94 FL (80-99); MEAN PLATELET VOLUME 10.5 FL (7.4-10.4); MONOCYTES # (AUTO) 0.9 X 10^3 (0.0-1.0); MONOCYTES % (AUTO) 7 % (0-12); NEUTROPHILS # (AUTO) 7.4 X 10^3 (1.8-7.8); NEUTROPHILS % (AUTO) 63 % (42-75); PLATELET COUNT 247 10^3/uL (130-400); WHITE BLOOD COUNT 11.7 10^3/uL (4.3-11.0)
[2020-05-20 20:48] LABS: BUN/CREATININE RATIO 15; CARBON DIOXIDE 18 MMOL/L (21-32); CHLORIDE 98 MMOL/L (98-107); CREATININE SERUM 1.15 MG/DL (0.60-1.30); GFR ESTIMATED > 60; GLUCOSE 123 MG/DL (70-105); POTASSIUM 2.8 MMOL/L (3.6-5.0); SODIUM 138 MMOL/L (135-145)
[2020-05-20 20:50] LABS: ALANINE AMINOTRANSFERASE 10 U/L (0-55); ALBUMIN 4.5 GM/DL (3.2-4.5); ALKALINE PHOSPHATASE 101 U/L (40-136); BILIRUBIN,TOTAL 0.9 MG/DL (0.1-1.0); MAGNESIUM 0.2 MG/DL (1.6-2.4); TOTAL PROTEIN 7.2 GM/DL (6.4-8.2)
[2020-05-20] MEDS ORDERED: THIAMINE 100 MG/ML 2 ML (VITAMIN B-1) VIAL IV ONE (21:00)
[2020-05-20] MEDS ORDERED: KCL 20 MEQ TAB (K-DUR) PO ONE (21:00)
--- NOTE | 2020-05-20 21:03 | Diagnostic Imaging Report ---
INDICATION: Sudden onset of confusion, chest pain. TECHNIQUE: Single view chest 8:39 PM. CORRELATION STUDY: 03/06/2019 FINDINGS: Heart size and mediastinum are stable. Minimal atelectasis is suggested at the right lung base. No definitive infiltrate. Prior surgical changes of the left shoulder. IMPRESSION: 1. Minimal right basilar atelectasis. Dictated by: Dictated on workstation # [id number]
--- NOTE | 2020-05-20 21:07 | Diagnostic Imaging Report ---
PROCEDURE: CT head without contrast. TECHNIQUE: Multiple contiguous axial images were obtained through the brain without the use of intravenous contrast. Auto Exposure Controls were utilized during the CT exam to meet ALARA standards for radiation dose reduction. INDICATION: Sudden onset of confusion, altered mental status. CORRELATION STUDY: 03/14/2019 FINDINGS: Generalized atrophic changes, prominence of the ventricles and sulci. There are rather prominent scattered areas of decreased attenuation. While nonspecific, likely reflective of small vessel ischemic disease. Definitive new area of decreased density to suggest edema is not suggested. Prior lacunar infarct left dontrell again demonstrated. There is no appreciable midline shift or mass effect. No intracranial hemorrhage. No hyperdense intracranial vascular sign. There is artifact particularly at the skull base. Paranasal sinuses are clear. There is apparent new gas fluid opacity of the left globe. This is changed from prior. IMPRESSION: 1. Negative for acute intracranial abnormality. Generalized atrophic changes with likely changes reflecting small vessel ischemic disease. 2. Change in the appearance of the left globe, likely owing to recent surgical procedure. However, correlation with the patient's history is recommended. Dictated by: Dictated on workstation # [id number]
[2020-05-20] MEDS: MAGNESIUM 1 GM/100 ML IVPB 100 ML IV SCH ×2 (21:35→22:34)
--- NOTE | 2020-05-20 21:52 | NUR ---
Spoke with Leslye Wolff his daughter, gave update on results and need to admit her father. She reports she is his POA and Medical person. . Spoke with the office analyst of pts significant other and the need to admit and update on results.
[2020-05-20] MEDS ORDERED: LEVETIRACETAM INJECTION 1,000 MG in NS (IVPB) 100 ML IV STA (22:03)
[2020-05-20] MEDS ORDERED: LORazepam INJ 2 MG/ML (ATIVAN) VIAL IVP ONE (22:15)
--- NOTE | 2020-05-20 23:24 | ED General ---
General Chief Complaint: General Problems/Pain Stated Complaint: CONFUSION Nursing Triage Note: Pt in per [facility] for confusion and then a fall. Pt reports he drives heavy every day but has not today. Pt was in his yard and became confused, called his neighbor and then he had a fall. Denies pain, noted bolld coming from his mouth. CBG 135 VP CLINICAL Nursing Sepsis Screen: No Definite Risk Source of Information: Patient History of Present Illness Date Seen by Provider: May 20, 2020 Time Seen by Provider: 21:15 Initial Comments Carlyn is a 70-year-old male alcoholic who presents with mental status changes and bleeding around his lips. Patient sent home with its is stable girlfriend who contacted EMS when they found the patient's confused. Patient is hard of hearing and does not have his securing aids in place. He is alert and oriented to person and mumbles in concert principal answers to questions. He has coordinated movement of all extremities. Patient's last known drink was greater than 24 hours ago. History is limited based upon the patient's condition and impaired hearing status Timing/Duration: 12-24 Hours Severity: Mild, Moderate Associated Systoms: Seizure Allergies and Home Medications Allergies Coded Allergies: codeine (Verified Allergy, Unknown, nausea and vomiting, 05/20/20) hydrocodone (Verified Allergy, Unknown, nausea and vomiting, 05/20/20) Home Medications Amlodipine Besylate 10 Mg Tablet, 10 MG PO DAILY, (Reported) Aspirin 325 Mg Tablet., 325 MG PO DAILY, (Reported) Atenolol 50 Mg Tablet, 50 MG PO DAILY, (Reported) LAST FILLED #90 10-30-18 Clopidogrel Bisulfate 75 Mg Tablet, 75 MG PO DAILY, (Reported) Cyanocobalamin/Folic Acid 1 Each Tablet, 1 TAB PO DAILY, (Reported) Fluoxetine HCl 20 Mg Capsule, 20 MG PO DAILY, (Reported) Garlic 1,000 Mg Capsule, 1,000 MG PO DAILY, (Reported) Lisinopril 20 Mg Tablet, 40 MG PO DAILY, (Reported) TAKES 2 (20MG) TABLETS Magnesium 250 Mg Tablet, 250 MG PO BID Prescribed by: GIL DICKINSON on 03/19/19 1011 Multivitamin 1 Each Tablet, 1 TAB PO DAILY, (Reported) Omeprazole 20 Mg Capsule., 20 MG PO DAILY, (Reported) Phosphate 1 Ea Tablet, 1 EA PO BID Prescribed by: GIL DICKINSON on 03/19/19 1011 Pravastatin Sodium 40 Mg Tablet, 40 MG PO DAILY, (Reported) Patient Home Medication List Home Medication List Reviewed: Yes Review of Systems Review of Systems Constitutional: other (unable to obtain) Respiratory: see HPI Cardiovascular: see HPI Genitourinary: see HPI Musculoskeletal: no symptoms reported Skin: no symptoms reported Psychiatric/Neurological: No Symptoms Reported Hematologic/Lymphatic: No Symptoms Reported Immunological/Allergic: no symptoms reported Past Umivxuo-Opaodg-Kelyvv Hx Past Med/Social Hx: Reviewed Nursing Past Med/Soc Hx Patient Social History Alcohol Beverage of Choice: Beer Type Used: Cigarettes 2nd Hand Smoke Exposure: No Recent Foreign Travel: No Contact w/Someone Who Travel: No Recent Infectious Disease Expo: No Recent Hopitalizations: No Physical Abuse: No Sexual Abuse: No Immunizations Up To Date Tetanus Booster (TDap): Unknown Date of Pneumonia Vaccine: Jun 03, 2018 Seasonal Allergies Seasonal Allergies: No Past Medical History Surgeries: Yes Bowel Surgery, Cardiac, Eye Surgery, Orthopedic, Tonsillectomy Respiratory: No Cardiac: Yes Angina, Coronary Artery Disease, High Cholesterol, Hypertension Neurological: Yes Stroke, TIA Genitourinary: No Gastrointestinal: Yes Gastroesophageal Reflux Musculoskeletal: Yes Arthritis, Back Injury Endocrine: No HEENT: Yes Hearing Impairment: Hearing Aide Left Cancer: No Psychosocial: Yes Depression Integumentary: No Blood Disorders: No Family Medical History No Pertinent Family Hx patient states he does not know Physical Exam Vital Signs Vital Signs - First Documented 05/20/20 05/20/20 20:08 21:56 Temp 36.4 Pulse 113 Resp 27 B/P (MAP) 146/90 (108) Pulse Ox 86 O2 Delivery Room Air O2 Flow Rate 2.00 Capillary Refill : Less Than 3 Seconds Height, Weight, BMI Height: 6'0" Weight: 199lbs. 0.7oz. 90.454407hd; 24.00 BMI Method:Stated General Appearance: WD/WN, Other (disheveled, ) Eyes: Bilateral Eye Normal Inspection HEENT: PERRL/EOMI, Normal ENT Inspection, Pharynx Normal, Other (dried blood around mouth) Neck: Full Range of Motion, Normal Inspection, Non Tender, Supple Respiratory: Chest Non Tender, Lungs Clear Cardiovascular: Regular Rate, Rhythm, No Edema Gastrointestinal: Non Tender, Soft Extremity: Normal Capillary Refill Neurologic/Psychiatric: Alert, No Motor/Sensory Deficits (no gross motor deficits), templer head II-XII Norm as Tested; No Aphasia, No Motor Weakness; Other Skin: Normal Color Lymphatic: No Adenopathy Focused Exam Sepsis Stage: Ruled Out Progress/Results/Core Measures Suspected Sepsis Recent Fever Within 48 Hours: No Infection Criteria Present: None New/Unexplained Altered Menta: Yes Sepsis Screen: No Definite Risk SIRS Temperature: Pulse: 113 Respiratory Rate: 27 Laboratory Tests 05/20/20 19:52: White Blood Count 11.7H Blood Pressure 146 /90 Mean: 78 Laboratory Tests 05/20/20 19:52: Creatinine 1.15, Platelet Count 247, Total Bilirubin 0.9 Results/Orders Lab Results Laboratory Tests Test 05/20/20 19:52 Range/Units White Blood Count 11.7 H 4.3-11.0 10^3/uL Red Blood Count 3.92 L 4.35-5.85 10^6/uL Hemoglobin 12.8 L 13.3-17.7 G/DL Hematocrit 37 L 40-54 % Mean Corpuscular Volume 94 80-99 FL Mean Corpuscular Hemoglobin 33 25-34 PG Mean Corpuscular Hemoglobin Concent 35 32-36 G/DL Red Cell Distribution Width 12.3 10.0-14.5 % Platelet Count 247 130-400 10^3/uL Mean Platelet Volume 10.5 H 7.4-10.4 FL Immature Granulocyte % (Auto) 0 % Neutrophils (%) (Auto) 63 42-75 % Lymphocytes (%) (Auto) 27 12-44 % Monocytes (%) (Auto) 7 0-12 % Eosinophils (%) (Auto) 2 0-10 % Basophils (%) (Auto) 0 0-10 % Neutrophils # (Auto) 7.4 1.8-7.8 X 10^3 Lymphocytes # (Auto) 3.2 1.0-4.0 X 10^3 Monocytes # (Auto) 0.9 0.0-1.0 X 10^3 Eosinophils # (Auto) 0.2 0.0-0.3 10^3/uL Basophils # (Auto) 0.1 0.0-0.1 10^3/uL Immature Granulocyte # (Auto) 0.0 0.0-0.1 10^3/uL Sodium Level 138 135-145 MMOL/L Potassium Level 2.8 L 3.6-5.0 MMOL/L Chloride Level 98 98-107 MMOL/L Carbon Dioxide Level 18 L 21-32 MMOL/L Anion Gap 22 H 5-14 MMOL/L Blood Urea Nitrogen 17 7-18 MG/DL Creatinine 1.15 0.60-1.30 MG/DL Estimat Glomerular Filtration Rate > 60 BUN/Creatinine Ratio 15 Glucose Level 123 H 70-105 MG/DL Calcium Level 8.0 L 8.5-10.1 MG/DL Corrected Calcium 7.6 L 8.5-10.1 MG/DL Magnesium Level 0.2 *L 1.6-2.4 MG/DL Total Bilirubin 0.9 0.1-1.0 MG/DL Aspartate Amino Transf (AST/SGOT) 16 5-34 U/L Alanine Aminotransferase (ALT/SGPT) 10 0-55 U/L Alkaline Phosphatase 101 40-136 U/L Troponin I < 0.30 <0.30 NG/ML Total Protein 7.2 6.4-8.2 GM/DL Albumin 4.5 3.2-4.5 GM/DL Serum Alcohol < 10 <10 MG/DL My Orders Orders - OBI MORA DO Cbc With Automated Diff (05/20/20 20:14) Comprehensive Metabolic Panel (05/20/20 20:14) Urinalysis (05/20/20 20:14) Chest 1 View Ap/Pa Only (05/20/20 20:14) Ekg Tracing (05/20/20 20:14) Ct Head Wo (05/20/20 20:14) Magnesium (05/20/20 20:14) Troponin I Fs (05/20/20 20:14) Alcohol (05/20/20 20:14) Drug Screen Stat (Urine) (05/20/20 20:14) Magnesium 1 Gm/100 Ml Ivpb (Magnesium Alcazar (05/20/20 21:00) Potassium Chloride (Tablet) (K Dur Table (05/20/20 21:00) Thiamine Injection (Vitamin B-1 Injectio (05/20/20 21:00) Lorazepam Injection (Ativan Injection) (05/20/20 22:15) Levetiracetam Injection (Keppra Injectio (05/20/20 22:03) Medications Given in ED Current Medications Medications Dose Ordered Sig/Gabbie Route Start Time Stop Time Status Last Admin Dose Admin Lorazepam 2 mg ONCE ONCE IVP 05/20/20 22:15 05/20/20 22:16 DC 05/20/20 22:34 2 MG Potassium Chloride 40 meq ONCE ONCE PO 05/20/20 21:00 05/20/20 21:01 DC 05/20/20 21:36 40 MEQ Thiamine HCl 100 mg ONCE ONCE IV 05/20/20 21:00 05/20/20 21:01 DC 05/20/20 21:36 100 MG Vital Signs/I&O 05/20/20 05/20/20 20:08 21:56 Temp 36.4 36.4 Pulse 113 93 Resp 27 B/P (MAP) 146/90 (108) 118/58 Pulse Ox 86 96 O2 Delivery Room Air Nasal Cannula O2 Flow Rate 2.00 Capillary Refill : Less Than 3 Seconds Blood Pressure Mean: 78 Departure Communication (Admissions) Patient with hypomagnesemia and high risk for alcohol withdrawal seizures. IV Ativan, Keppra and magnesium given. Vital signs surprisingly remains stable throughout ED stay suggesting that the hypomagnesemia is a chronic process. Potassium replaced. CT, nondiagnostic. An Dr. Najera accepts patient to [facility]. Impression Primary Impression: Altered mental status Additional Impressions: Hypomagnesemia Alcohol withdrawal Hypokalemia Disposition: ADMITTED INPATIENT Condition: Critical Admissions Decision to Admit Reason: Admit from ER (General) Transfer Transfer Reason: Exceeds level of care Time Spoke to Accepting Phy: 23:15 (Dr. Najera) Transfer Time: 23:15 (Dr. Najera) Departure-Patient Inst. Referrals: NANDA CALVILLO MD (PCP) Primary Care Physician OBI MORA DO May 20, 2020 23:24
[2020-05-21] VITALS (7 sets, daily range): BP systolic 91–139; BP diastolic 63–80
[2020-05-21 00:57] LABS: CHLORIDE 99 MMOL/L (98-107); POTASSIUM 3.2 MMOL/L (3.6-5.0); SODIUM 138 MMOL/L (135-145)
[2020-05-21 00:58] LABS: BUN/CREATININE RATIO 15; CALCIUM 7.8 MG/DL (8.5-10.1); CARBON DIOXIDE 26 MMOL/L (21-32); CREATININE SERUM 1.17 MG/DL (0.60-1.30); GFR ESTIMATED > 60; GLUCOSE 101 MG/DL (70-105)
[2020-05-21] MEDS ORDERED: 1/2 NS IV SOLUTION 1,000 ML IV PRN (02:17)
[2020-05-21] MEDS ORDERED: LORazepam INJ 2 MG/ML (ATIVAN) VIAL ONE (02:27)
[2020-05-21] MEDS ORDERED: ANTACID SUSP 30 ML UDC (MYLANTA) PO PRN (02:30)
[2020-05-21] MEDS ORDERED: ONDANSETRON 4 MG (ZOFRAN) ORAL DISSOLVE TAB SL PRN (02:30)
[2020-05-21] MEDS ORDERED: LORazepam INJ 2 MG/ML (ATIVAN) VIAL IV PRN (02:30)
[2020-05-21] MEDS ORDERED: SENNA W/DOCUSATE (SENOKOT S) TABLET PO PRN (02:30)
[2020-05-21] MEDS ORDERED: LORazepam 1 MG (ATIVAN) TAB PO PRN (02:30)
[2020-05-21] MEDS ORDERED: LORazepam INJ 2 MG/ML (ATIVAN) VIAL IM/IV PRN (02:30)
[2020-05-21] MEDS ORDERED: ONDANSETRON 4 MG/2 ML (SDV) Z0FRAN IV PRN (02:30)
[2020-05-21] MEDS ORDERED: D5 1/2 NS 1000 ML IV SOLUTION 1,000 ML IV ONE (02:37)
[2020-05-21] MEDS: D5 1/2 NS 1000 ML IV SOLUTION 1,000 ML IV PRN (02:39)
[2020-05-21] MEDS ORDERED: MAGNESIUM 1 GM/100 ML IVPB 600 ML IV ONE (02:40)
[2020-05-21] MEDS: MAGNESIUM 1 GM/100 ML IVPB 100 ML IV SCH ×7 (02:56→09:18)
[2020-05-21] MEDS: POTASSIUM CL 10MEQ/50ML IVPB 50 ML IV SCH ×7 (02:57→15:04)
[2020-05-21] MEDS: DexMEDEtomidine PRE MIX 100 ML IV SCH ×4 (02:57→23:41)
[2020-05-21 03:39] LABS: BASOPHILS % (AUTO) 0 % (0-10); EOSINOPHILS # (AUTO) 0.1 10^3/uL (0.0-0.3); EOSINOPHILS % (AUTO) 1 % (0-10); HEMATOCRIT 41 % (40-54); HEMOGLOBIN 14.2 g/dL (13.3-17.7); LYMPHOCYTES # (AUTO) 1.5 10^3/uL (1.0-4.0); LYMPHOCYTES % (AUTO) 16 % (12-44); MEAN CORPUSCULAR HEMOGLOBIN 33 pg (25-34); MEAN CORPUSCULAR HGB CONC 35 g/dL (32-36); MEAN CORPUSCULAR VOLUME 95 fL (80-99); MEAN PLATELET VOLUME 10.4 fL (9.0-12.2); MONOCYTES # (AUTO) 0.8 10^3/uL (0.0-1.0); MONOCYTES % (AUTO) 8 % (0-12); NEUTROPHILS # (AUTO) 7.1 10^3/uL (1.8-7.8); NEUTROPHILS % (AUTO) 75 % (42-75); PLATELET COUNT 273 10^3/uL (130-400); WHITE BLOOD COUNT 9.4 10^3/uL (4.3-11.0)
[2020-05-21 03:59] LABS: BILIRUBIN,URINE NEGATIVE (NEGATIVE); CLARITY,URINE CLEAR; COLOR,URINE YELLOW; GLUCOSE, URINE (UA) NEGATIVE (NEGATIVE); KETONES,URINE TRACE (NEGATIVE); LEUKOCYTE ESTERASE ,URINE NEGATIVE (NEGATIVE); NITRITE,URINE NEGATIVE (NEGATIVE); PROTEIN,URINE 2+ (NEGATIVE)
[2020-05-21 04:00] LABS: CHLORIDE 101 MMOL/L (98-107); POTASSIUM 2.9 MMOL/L (3.6-5.0); PROTHROMBIN TIME PATIENT 13.9 SEC (12.2-14.7); SODIUM 138 MMOL/L (135-145)
[2020-05-21 04:02] LABS: CALCIUM 7.7 MG/DL (8.5-10.1)
[2020-05-21 04:03] LABS: GLUCOSE 122 MG/DL (70-105); TOTAL PROTEIN 6.7 GM/DL (6.4-8.2)
[2020-05-21 04:04] LABS: BILIRUBIN,TOTAL 0.8 MG/DL (0.1-1.0); CARBON DIOXIDE 21 MMOL/L (21-32)
[2020-05-21 04:06] LABS: ALKALINE PHOSPHATASE 79 U/L (40-136)
[2020-05-21 04:07] LABS: CREATININE SERUM 1.12 MG/DL (0.60-1.30); GFR ESTIMATED > 60
[2020-05-21 04:08] LABS: BUN/CREATININE RATIO 16
[2020-05-21 04:09] LABS: ALANINE AMINOTRANSFERASE 10 U/L (0-55); MAGNESIUM 1.2 MG/DL (1.6-2.4)
[2020-05-21 04:18] LABS: BACTERIA,URINE NEGATIVE /HPF
--- NOTE | 2020-05-21 04:45 | Pulmonary Consultation ---
History of Present Illness History of Present Illness Date Seen by Provider: May 21, 2020 Time Seen by Provider: 04:40 Date of Admission Allergies and Home Medications Allergies Coded Allergies: codeine (Verified Allergy, Unknown, nausea and vomiting, 05/20/20) hydrocodone (Verified Allergy, Unknown, nausea and vomiting, 05/20/20) Home Medications Amlodipine Besylate 10 Mg Tablet, 10 MG PO DAILY, (Reported) Aspirin 325 Mg Tablet.dr, 325 MG PO DAILY, (Reported) Atenolol 50 Mg Tablet, 50 MG PO DAILY, (Reported) LAST FILLED #90 10-30-18 Clopidogrel Bisulfate 75 Mg Tablet, 75 MG PO DAILY, (Reported) Cyanocobalamin/Folic Acid 1 Each Tablet, 1 TAB PO DAILY, (Reported) Fluoxetine HCl 20 Mg Capsule, 20 MG PO DAILY, (Reported) Garlic 1,000 Mg Capsule, 1,000 MG PO DAILY, (Reported) Lisinopril 20 Mg Tablet, 40 MG PO DAILY, (Reported) TAKES 2 (20MG) TABLETS Magnesium 250 Mg Tablet, 250 MG PO BID Prescribed by: GIL DICKINSON on 03/19/19 1011 Multivitamin 1 Each Tablet, 1 TAB PO DAILY, (Reported) Omeprazole 20 Mg Capsule.dr, 20 MG PO DAILY, (Reported) Phosphate 1 Ea Tablet, 1 EA PO BID Prescribed by: GIL DICKINSON on 03/19/19 1011 Pravastatin Sodium 40 Mg Tablet, 40 MG PO DAILY, (Reported) Past Yibevgk-Bodoor-Cxpvib Hx Past Med/Social Hx: Reviewed Nursing Past Med/Soc Hx Patient Social History Alcohol Beverage of Choice: Beer Type Used: Cigarettes 2nd Hand Smoke Exposure: No Recent Foreign Travel: No Contact w/Someone Who Travel: No Recent Infectious Disease Expo: No Recent Hopitalizations: No Physical Abuse: No Sexual Abuse: No Immunizations Up To Date Tetanus Booster (TDap): Unknown Date of Pneumonia Vaccine: Jun 03, 2018 Seasonal Allergies Seasonal Allergies: No Past Medical History Surgeries: Yes Bowel Surgery, Cardiac, Eye Surgery, Orthopedic, Tonsillectomy Respiratory: No Cardiac: Yes Angina, Coronary Artery Disease, High Cholesterol, Hypertension Neurological: Yes Stroke, TIA Genitourinary: No Gastrointestinal: Yes Gastroesophageal Reflux Musculoskeletal: Yes Arthritis, Back Injury Endocrine: No HEENT: Yes Hearing Impairment: Hearing Aide Left Cancer: No Psychosocial: Yes Depression Integumentary: No Blood Disorders: No Family Medical History No Pertinent Family Hx patient states he does not know Sepsis Event Evaluation Height, Weight, BMI Height: 6'0" Weight: 199lbs. 0.7oz. 90.830949yb; 24.00 BMI Method:Stated Exam Exam Vital Signs Date Time Temp Pulse Resp B/P (MAP) Pulse Ox O2 Delivery O2 Flow Rate FiO2 05/21/20 04:17 96 OxyMask 6.00 05/21/20 04:03 OxyMask 6.00 05/21/20 03:14 OxyMask 5.00 05/21/20 02:57 107 05/21/20 02:45 Nasal Cannula 5.00 05/21/20 02:15 37.0 Nasal Cannula 2.00 05/21/20 00:41 36.4 91 22 144/69 (78) 96 Nasal Cannula 2.00 05/20/20 21:56 36.4 93 118/58 96 Nasal Cannula 2.00 05/20/20 20:08 36.4 113 27 146/90 (108) 86 Room Air Height & Weight Height: 6'0" Weight: 199lbs. 0.7oz. 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 -Currently requiring oxymask -PT oversedated secondary to alcohol withdrawal. Alcohol withdrawal with suspected seizures - secondary to fall -Pt drinks a case of beer/day -Pt has not had any seizures since this admission. CT head is negative -CIWA -Precedex -Ativan -- s/p 6mg IV Hypokalemia, hypomag -Replace metabolic encephalopathy COPD with current tobacco dependance CAD Hx of CVA PVD - JOSE BAKER DO May 21, 2020 04:45
[2020-05-21] MEDS ORDERED: PROPOFOL DRIP (ICU) 100 ML IV SCH (05:45)
[2020-05-21] MEDS: PROPOFOL DRIP (ICU) 100 ML IV SCH ×3 (05:49→23:48)
[2020-05-21] MEDS: MIDAZOLAM DRIP PRE-MIX 100 ML IV SCH (06:16)
[2020-05-21] MEDS: KCL 20 MEQ TAB (K-DUR) PO SCH (06:20)
--- NOTE | 2020-05-21 06:50 | NUR ---
TIMELINE NOTE: 021- PT ARRIVAL [facility]IA [facility]. LETHARGIC. 0216- PATIENT CRAWLING OUT OF BED. RIPPING CORDS OFF. 0230- ATIVAN GIVEN PER CIWA. 0315- PRECEDEX DRIP STARTED. 0345- PLACED ON 6L OXYMASK. 0420- DR. BAKER HERE TO ASSESS PATIENT. ORDER GIVEN TO INTUBATE TO PROTECT AIRWAY. 0445- CONTACTED ANGELIQUE (DAUGHTER/DPOA) DISCUSSED SITUATION WITH HER. AGREEMENT IN TREATMENT PLAN. 0506- 5 CC OF PROPOFOL GIVEN, 4 MG OF VERSED GIVEN. 0508- 5 CC OF PROPOFOL GIVEN. 509- ET TUBE PLACED. 28 AT LIP. VENT SETTINGS GIVEN TO RT. 0512- OG TUBE PLACED. 0525- XRAY CONFIRM PLACEMENT OF TUBES. DR. BAKER REVIEWED AND CONFIRMED.
--- NOTE | 2020-05-21 07:09 | Diagnostic Imaging Report ---
EXAMINATION: Chest 1 view HISTORY: Intubation. COMPARISON: 05/20/2020 FINDINGS: Endotracheal tube tip terminates 6 cm above the darcie. Gastric tube tip terminates below the field of view. There is no edema or pneumonia. No pleural effusion or pneumothorax. Heart size is normal. There is reverse left total shoulder arthroplasty. IMPRESSION: 1. Clear lungs. Dictated by: Dictated on workstation # [id number]
[2020-05-21] MEDS ORDERED: LACTATED RINGERS 1,000 ML IV ONE ×2 (07:19→12:14)
[2020-05-21] MEDS ORDERED: LACTATED RINGERS 1,000 ML IV STA (07:30)
--- NOTE | 2020-05-21 07:53 | History & Physical-Hospitalist ---
History of Present Illness HPI/Chief Complaint Pt is a 70yoCM with a PMH of alcohol abuse, HTN, HLD who presented to the ER due to altered mental status. He is currently intubated and sedated and ROS and HPI are limited by that. All history obtained from the records. He was admitted roughly one year about and reported that he drinks at least 6-8 beers per day. Per the ER note he has not drank in over 24 hours but I'm unsure of his exact timing for last drink. He was found to be extremely hypomagnesemic and was admitted to the ICU. Overnight he became more lethargic and unable to participate in care. He was no longer able to protect his airway and he was intubated this morning. Source: patient Date Seen 05/21/20 Time Seen by a Provider: 07:48 Attending Physician Kayy Najera MD PCP Irasema Upton MD Referring Physician Date of Admission May 21, 2020 at 00:30 Home Medications & Allergies Home Medications Reviewed patient Home Medication Reconciliation performed by pharmacy medication reconciliations central sterilization technician and/or nursing. Patients Allergies have been reviewed. Allergies Allergies Coded Allergies codeine (Verified Allergy, Unknown, nausea and vomiting, 05/20/20) hydrocodone (Verified Allergy, Unknown, nausea and vomiting, 05/20/20) Past Ddgdydd-Qylwjh-Yekvwn Hx Past Med/Social Hx: Reviewed Nursing Past Med/Soc Hx Patient Social History Alcohol Use: Regular Use Alcohol Beverage of Choice: Beer Smoking Status: Smoker Current Status UKN Type Used: Cigarettes 2nd Hand Smoke Exposure: No Recent Foreign Travel: No Contact w/other who traveled: No Recent Hopitalizations: No Recent Infectious Disease Expo: No Immunizations Up To Date Tetanus Booster (TDap): Unknown Date of Pneumonia Vaccine: Jun 03, 2018 Seasonal Allergies Seasonal Allergies: No Past Medical History Surgeries: Bowel Surgery, Cardiac, Eye Surgery, Orthopedic, Tonsillectomy Cardiac: Angina, Coronary Artery Disease, High Cholesterol, Hypertension Neurological: Stroke, TIA Gastrointestinal: Gastroesophageal Reflux Musculoskeletal: Arthritis, Back Injury Hearing Impairment: Hearing Aide Left Psychosocial: Depression History of Blood Disorders: No Family History Reviewed Nursing Family Hx No Pertinent Family Hx patient states he does not know Review of Systems ROS-Unable to Obtain: intubated Constitutional: see HPI Physical Exam Physical Exam Vital Signs Vital Signs - First Documented 05/20/20 05/20/2020 20:08 21:56 05:20 Temp 36.4 Pulse 113 Resp 27 B/P (MAP) 146/90 (108) Pulse Ox 86 O2 Delivery Room Air O2 Flow Rate 2.00 FiO2 100 Capillary Refill : Less Than 3 Seconds Height, Weight, BMI Height: 6'0" Weight: 199lbs. 0.7oz. 90.822905xk; 24.00 BMI Method:Stated General Appearance: Other (intubated and sedated ) HEENT: Moist Mucous Membranes, Other (ETT and OG in place) Neck: Normal Inspection, Supple Respiratory: Lungs Clear, Other (on vent) Cardiovascular: No Murmur Gastrointestinal: Normal Bowel Sounds, Non Tender, Soft, Other (large midline scar on abdomen) Extremity: Normal Capillary Refill, No Calf Tenderness, No Pedal Edema Neurologic/Psychiatric: Other (sedated, appears comfortable) Skin: Normal Color, Warm/Dry Results Results/Procedures Labs Laboratory Tests 05/20/20 19:52 05/21/20 00:33 05/21/20 03:20 Patient resulted labs reviewed. Imaging: Reviewed Imaging Report Imaging [facility], [place] NAME: ROCCO LESLIE Diamond [facility] REC#: [id number] PT STATUS: REG ER : 1950 PHYSICIAN: OBI MORA DO ADMIT DATE: 05/20/20/ER FS Signed Date of Exam:05/20/20 CT HEAD WO PROCEDURE: CT head without contrast. TECHNIQUE: Multiple contiguous axial images were obtained through the brain without the use of intravenous contrast. Auto Exposure Controls were utilized during the CT exam to meet ALARA standards for radiation dose reduction. INDICATION: Sudden onset of confusion, altered mental status. CORRELATION STUDY: 03/14/2019 FINDINGS: Generalized atrophic changes, prominence of the ventricles and sulci. There are rather prominent scattered areas of decreased attenuation. While nonspecific, likely reflective of small vessel ischemic disease. Definitive new area of decreased density to suggest edema is not suggested. Prior lacunar infarct left dontrell again demonstrated. There is no appreciable midline shift or mass effect. No intracranial hemorrhage. No hyperdense intracranial vascular sign. There is artifact particularly at the skull base. Paranasal sinuses are clear. There is apparent new gas fluid opacity of the left globe. This is changed from prior. IMPRESSION: 1. Negative for acute intracranial abnormality. Generalized atrophic changes with likely changes reflecting small vessel ischemic disease. 2. Change in the appearance of the left globe, likely owing to recent surgical procedure. However, correlation with the patient's history is recommended. Dictated by: Dictated on workstation # [id number] Dict: 05/20/202048 Trans: 05/20/202217 [facility] [id number] Interpreted by: DAWN CAMPOS DO Electronically signed by: DAWN CAMPOS DO 05/20/202217 [facility] [place] NAME: ROCCO LESLIE [facility] REC#: [id number] PT STATUS: REG ER : 1950 PHYSICIAN: OBI MORA DO ADMIT DATE: 05/20/20/ER FS Signed Date of Exam:05/20/20 CT HEAD WO PROCEDURE: CT head without contrast. TECHNIQUE: Multiple contiguous axial images were obtained through the brain without the use of intravenous contrast. Auto Exposure Controls were utilized during the CT exam to meet ALARA standards for radiation dose reduction. INDICATION: Sudden onset of confusion, altered mental status. CORRELATION STUDY: 03/14/2019 FINDINGS: Generalized atrophic changes, prominence of the ventricles and sulci. There are rather prominent scattered areas of decreased attenuation. While nonspecific, likely reflective of small vessel ischemic disease. Definitive new area of decreased density to suggest edema is not suggested. Prior lacunar infarct left dontrell again demonstrated. There is no appreciable midline shift or mass effect. No intracranial hemorrhage. No hyperdense intracranial vascular sign. There is artifact particularly at the skull base. Paranasal sinuses are clear. There is apparent new gas fluid opacity of the left globe. This is changed from prior. IMPRESSION: 1. Negative for acute intracranial abnormality. Generalized atrophic changes with likely changes reflecting small vessel ischemic disease. 2. Change in the appearance of the left globe, likely owing to recent surgical procedure. However, correlation with the patient's history is recommended. Dictated by: Dictated on workstation # [id number] Dict: 05/20/202048 Trans: 05/20/202217 [facility] [id number] Interpreted by: DAWN CAMPOS DO Electronically signed by: DAWN CAMPOS DO 05/20/20 2218 [facility] [place] NAME: ROCCO LESLIE [facility] REC#: [id number] PT STATUS: ADM IN : 1950 PHYSICIAN: JOSE BAKER DO ADMIT DATE: 05/21/20/ICU Draft Date of Exam:05/21/20 CHEST 1 VIEW, AP/PA ONLY EXAMINATION: Chest 1 view HISTORY: Intubation. COMPARISON: 05/20/2020 FINDINGS: Endotracheal tube tip terminates 6 cm above the darcie. Gastric tube tip terminates below the field of view. There is no edema or pneumonia. No pleural effusion or pneumothorax. Heart size is normal. There is reverse left total shoulder arthroplasty. IMPRESSION: 1. Clear lungs. Dictated on workstation # [id number] Dict: 05/21/20 0707 Trans: 05/21/20 0709 [id number] Interpreted by: SERJIO PIERCE MD Electronically signed by: Assessment/Plan Admission Diagnosis Alcohol Withdrawal Admission Status: Inpatient Order (span 2 midnights) Reason for Inpatient Admission: see below Assessment and Plan Alcohol Withdrawal Acute Respiratory Failure Hypomagnesemia Hypokalemia Unable to protect airway and intubated this AM Currently using Versed, Precedex, and Propofol to sedate patient- hopefully will prevent seizures with this regimen Mg improved since admission, continue replacement as needed Replace K per protocol Production Department Supervisor consult when awake Received Thiamine in the ER, continue and add folic acid HTN Hypotensive currently so hold home meds CAD Lip bleeding noted by ER so will hold DAPT for now and monitor as already getting Lovenox Plts WNL DVT ppx: Lovenox Diagnosis/Problems Diagnosis/Problems (1) Acute respiratory failure (2) Alcohol withdrawal Status: Acute (3) Altered mental status Status: Acute (4) Hypomagnesemia Status: Acute (5) Hypokalemia Status: Acute (6) DVT prophylaxis Status: Acute (7) HTN (hypertension) Status: Chronic Clinical Quality Measures DVT/VTE Risk/Contraindication: Risk Factor Score Per Nursin RFS Level Per Nursing on Admit: 4+=Very High ALEXY TROTTER MD May 21, 2020 07:53
[2020-05-21 08:03] LABS: ABG BASE EXCESS -1.4 MMOL/L (-2.5-2.5); ABG OXYGEN SATURATION 95 % (94-100); ABG PCO2 36 MMHG (35-45); ABG PH 7.41 (7.37-7.43); ABG PO2 79 MMHG (79-93); ABG TCO2 23.6 MMOL/L (21.0-31.0)
[2020-05-21 08:04] LABS: ALLENS TEST YES-POS; INSPIRED O2 30%; VENTILATOR YES
--- NOTE | 2020-05-21 08:04 | Physical Therapy Progress Note ---
Therapy Progress Note Order for PT evaluation received. Patient is currently intubated and sedated. Will monitor and start when appropriate. RIZWAN PHIPPS PT May 21, 2020 08:04
[2020-05-21] MEDS: PANTOPRAZOLE 40 MG (PROTONIX) VIAL IV SCH (08:05)
[2020-05-21] MEDS: LEVETIRACETAM 1,000 MG/NS 100 ML IVPB IV SCH ×4 (08:06→20:49)
[2020-05-21] MEDS: ENOXAPARIN 40 MG/0.4 ML (LOVENOX) SYR SC SCH (08:06)
[2020-05-21] MEDS ORDERED: MIDAZOLAM 5 MG/5 ML (VERSED) VIAL INJ ONE (08:09)
--- NOTE | 2020-05-21 08:25 | Occ Therapy Progress Note ---
Therapy Progress Note OT order received. Chart reviewed. Will hold pt. at this time due to medical changes and current situation. 0825 DANIELA IVORY OT May 21, 2020 08:25
[2020-05-21] MEDS: FOLIC ACID 5MG/ML 10 ML IV SCH (09:18)
[2020-05-21] MEDS: THIAMINE 100 MG/ML 2 ML (VITAMIN B-1) VIAL IV SCH (09:18)
--- NOTE | 2020-05-21 10:00 | NUR ---
THIS NURSE NOTIFIED DR BAKER PT PUPILS ARE NOT EQUAL. DR BAKER WOULD LIKE THE NURSE TO REACH OUT TO THE EYE DR TO FIND OUT IF PT NEEDS ANY EYE DROPS OR SPECIAL CARE. WILL CONTINUE TO MONITOR.
--- NOTE | 2020-05-21 12:00 | NUR ---
THIS NURSE NOTIFIED DR BAKER BP HAS BEEN 80S/60S. ORDER GIVEN FOR ANOTHER LITER BOLUS OF LR. SEE ORDER HX. WILL CONTINUE TO MONITOR.
--- NOTE | 2020-05-21 12:16 | Diagnostic Imaging Report ---
Indication: PICC line placement. Frontal chest obtained at 1159 a.m. is compared to same day at 0517 a.m. ET tube and NG tube are unchanged. There is a new right-sided PICC line with tip overlying the low SVC. There is some mild bibasilar atelectasis. There is no new consolidation or pleural fluid. IMPRESSION: New right-sided PICC line tip overlies distal SVC. No significant change otherwise compared to earlier the same day. Dictated by: Dictated on workstation # [id number]
[2020-05-21] MEDS ORDERED: LACTATED RINGERS 1,000 ML IV SCH (12:30)
[2020-05-21 12:53] LABS: ALBUMIN 3.4 GM/DL (3.2-4.5); CHLORIDE 103 MMOL/L (98-107); POTASSIUM 3.1 MMOL/L (3.6-5.0); SODIUM 134 MMOL/L (135-145)
[2020-05-21 12:54] LABS: CALCIUM 7.4 MG/DL (8.5-10.1)
[2020-05-21 12:55] LABS: GLUCOSE 132 MG/DL (70-105)
[2020-05-21 12:56] LABS: TOTAL PROTEIN 5.6 GM/DL (6.4-8.2)
[2020-05-21 12:57] LABS: CARBON DIOXIDE 20 MMOL/L (21-32)
[2020-05-21 12:59] LABS: ALKALINE PHOSPHATASE 66 U/L (40-136); GFR ESTIMATED > 60
[2020-05-21 13:00] LABS: BUN/CREATININE RATIO 16
[2020-05-21 13:02] LABS: ALANINE AMINOTRANSFERASE 8 U/L (0-55)
--- NOTE | 2020-05-21 14:48 | NUR ---
Received dietary consult regarding vent status. Note pt currently intubated/sedated for airway protection. Plan of care is to likely extubate within the next few days. Pt would not be a candidate for enteral nutrition at this time. Will continue to follow and reassess as pt needs, intake, and status change. Meek Joseph, MS RD LD [phone] (cell)
--- NOTE | 2020-05-21 14:52 | NUR ---
CM/SS: Attempted to visit with pt as per Social Service Consult. Unable to talk with pt as he is sedated and on the vent. This worker will follow up.
[2020-05-21 14:56] LABS: PHOSPHORUS 2.7 MG/DL (2.3-4.7)
[2020-05-21 14:58] LABS: MAGNESIUM 2.5 MG/DL (1.6-2.4)
--- NOTE | 2020-05-21 16:59 | NUR ---
THIS NURSE TALKED TO DANIEL WITH DR REID'S OFFICE. DANIEL NOTIFIED THIS NURSE PT SHOULD BE DONE WITH HIS PREDNISONE EYE DROP TAPER AND DOES NOT NEED ANY MEDICATION FOR HIS EYE. PT HAD A DETACH RETINA REPAIR 04/29 AND A CHECK UP 05/20.
[2020-05-22] MEDS: inSUlin ASPART (NovoLOG) 1 UNIT/0.01 ML (CHARGE PER UNIT) SQ SCH ×4 (00:14→17:51)
[2020-05-22 01:43] VITALS: BP 134/75
[2020-05-22 02:51] LABS: BASOPHILS # (AUTO) 0.1 10^3/uL (0.0-0.1); BASOPHILS % (AUTO) 1 % (0-10); EOSINOPHILS # (AUTO) 0.1 10^3/uL (0.0-0.3); EOSINOPHILS % (AUTO) 1 % (0-10); HEMATOCRIT 37 % (40-54); HEMOGLOBIN 12.7 g/dL (13.3-17.7); LYMPHOCYTES # (AUTO) 1.1 10^3/uL (1.0-4.0); LYMPHOCYTES % (AUTO) 11 % (12-44); MEAN CORPUSCULAR HEMOGLOBIN 33 pg (25-34); MEAN CORPUSCULAR HGB CONC 34 g/dL (32-36); MEAN CORPUSCULAR VOLUME 95 fL (80-99); MEAN PLATELET VOLUME 10.8 fL (9.0-12.2); MONOCYTES # (AUTO) 0.7 10^3/uL (0.0-1.0); MONOCYTES % (AUTO) 7 % (0-12); NEUTROPHILS # (AUTO) 8.2 10^3/uL (1.8-7.8); NEUTROPHILS % (AUTO) 80 % (42-75); PLATELET COUNT 221 10^3/uL (130-400); WHITE BLOOD COUNT 10.2 10^3/uL (4.3-11.0)
[2020-05-22 02:57] LABS: ABG BASE EXCESS -0.7 MMOL/L (-2.5-2.5); ABG OXYGEN SATURATION 94 % (94-100); ABG PCO2 36 MMHG (35-45); ABG PH 7.42 (7.37-7.43); ABG PO2 76 MMHG (79-93); ABG TCO2 24.4 MMOL/L (21.0-31.0)
[2020-05-22 03:16] LABS: BUN/CREATININE RATIO 15; CALCIUM 8.1 MG/DL (8.5-10.1); CARBON DIOXIDE 21 MMOL/L (21-32); CHLORIDE 103 MMOL/L (98-107); CREATININE SERUM 1.12 MG/DL (0.60-1.30); GFR ESTIMATED > 60; GLUCOSE 102 MG/DL (70-105); PHOSPHORUS 3.1 MG/DL (2.3-4.7); SODIUM 137 MMOL/L (135-145)
[2020-05-22 03:21] LABS: ALLENS TEST NEG; INSPIRED O2 30%
[2020-05-22 03:22] LABS: PATIENT TEMP 36.4; VENTILATOR YES
--- NOTE | 2020-05-22 04:36 | Pulmonary Progress Note ---
Subjective Time Seen by a Provider: 04:31 Sepsis Event Evaluation Height, Weight, BMI Height: 6'0" Weight: 199lbs. 0.7oz. 90.508940xm; 24.00 BMI Method:Stated Exam Exam Vital Signs Date Time Temp Pulse Resp B/P (MAP) Pulse Ox O2 Delivery O2 Flow Rate FiO2 05/22/20 03:00 56 26 111/65 94 Mechanical Ventilator 30.00 05/22/20 02:12 36.4 05/22/20 02:00 57 26 110/64 95 Mechanical Ventilator 30.00 05/22/20 01:43 55 24 94 30 05/22/20 01:00 55 05/22/20 01:00 55 24 135/76 94 Mechanical Ventilator 30.00 05/22/20 00:00 36.2 Mechanical Ventilator 30.00 05/22/20 00:00 52 24 139/75 95 Mechanical Ventilator 30.00 05/21/20 23:54 53 24 95 30 05/21/20 23:48 56 106/65 05/21/20 23:41 56 24 103/65 95 Mechanical Ventilator 30.00 05/21/20 23:00 56 24 109/66 95 Mechanical Ventilator 30.00 05/21/20 22:00 57 24 92/60 94 Mechanical Ventilator 30.00 05/21/20 21:15 94 Mechanical Ventilator 30 05/21/20 21:00 57 23 140/78 96 Mechanical Ventilator 30.00 05/21/20 20:00 55 13 133/80 95 Mechanical Ventilator 30.00 05/21/20 19:11 56 24 94 30 05/21/20 19:00 55 15 135/80 94 Mechanical Ventilator 30.00 05/21/20 19:00 60 05/21/20 18:00 55 23 136/81 96 Mechanical Ventilator 30.00 05/21/20 17:00 56 13 144/82 95 Mechanical Ventilator 30.00 05/21/20 16:37 36.9 05/21/20 16:00 35.9 05/21/20 16:00 58 14 128/73 94 Mechanical Ventilator 30.00 05/21/20 15:00 53 7 118/70 93 Mechanical Ventilator 30.00 05/21/20 14:48 56 24 93 30 05/21/20 14:30 36.5 05/21/20 14:00 53 18 163/84 94 Mechanical Ventilator 30.00 05/21/20 13:00 52 30 157/84 95 Mechanical Ventilator 30.00 05/21/20 12:37 51 05/21/20 12:00 53 14 138/79 95 Mechanical Ventilator 30.00 05/21/20 11:46 86/61 05/21/20 11:00 53 31 86/61 92 Mechanical Ventilator 30.00 05/21/20 10:00 56 25 75/55 93 Mechanical Ventilator 30.00 05/21/20 09:46 59 24 93 30 05/21/20 09:00 61 28 100/65 93 Mechanical Ventilator 30.00 05/21/20 08:00 58 28 104/67 93 Mechanical Ventilator 30.00 05/21/20 07:45 94 Mechanical Ventilator 30 05/21/20 07:28 59 05/21/20 07:00 59 11 101/66 91 Mechanical Ventilator 30.00 05/21/20 06:49 59 24 93 30 05/21/20 06:39 59 24 93 30 05/21/20 06:16 59 05/21/20 06:07 Mechanical Ventilator 30.00 05/21/20 06:00 60 24 90/65 92 Mechanical Ventilator 100.00 05/21/20 05:49 60 94/67 05/21/20 05:46 37.0 60 24 94/67 99 OxyMask 6.00 05/21/20 05:20 60 24 99 100 05/21/20 05:00 62 24 111/70 93 Mechanical Ventilator 100.00 I & O 05/22/20 07:00 Intake Total 1910 ml Output Total 1710 ml Balance 200 ml Height & Weight Height: 6'0" Weight: 199lbs. 0.7oz. 90.064149dv; 24.00 BMI Method:Stated General Appearance: Other (intubated and sedated ) HEENT: Moist Mucous Membranes, Other (ETT and OG in place) Neck: Normal Inspection, Supple Respiratory: Lungs Clear, Other (on vent) Cardiovascular: No Murmur Capillary Refill: Less Than 3 Seconds Extremity: Normal Capillary Refill, No Calf Tenderness, No Pedal Edema Neurologic/Psychiatric: Other (sedated, appears comfortable) Skin: Normal Color, Warm/Dry Lymphatic: No Adenopathy Results Lab Laboratory Tests 05/20/20 19:52 05/21/20 00:33 05/21/20 03:20 05/21/20 12:35 05/22/20 02:00 Assessment/Plan Assessment/Plan Acute respiratory failure with accessory muscle use -Pt was intubated 05/21 for airway protection -Continue vent. -PT oversedated secondary to alcohol withdrawal. Alcohol withdrawal with suspected seizures - secondary to fall -Pt drinks a case of beer/day -Pt has not had any seizures since this admission. CT head is negative -CIWA -Precedex -Ativan -- s/p 6mg IV Hypokalemia -Replace metabolic encephalopathy COPD with current tobacco dependance CAD Hx of CVA PVD JOSE BAKER DO May 22, 2020 04:36
[2020-05-22] MEDS: POTASSIUM CL 10MEQ/50ML IVPB 50 ML IV SCH ×9 (04:57→14:09)
[2020-05-22] MEDS: KCL 20 MEQ TAB (K-DUR) PO SCH (05:00)
[2020-05-22] MEDS: MAGNESIUM 1 GM/100 ML IVPB 100 ML IV SCH (05:00)
[2020-05-22] MEDS: D5 1/2 NS 1000 ML IV SOLUTION 1,000 ML IV PRN (05:08)
[2020-05-22] MEDS: MIDAZOLAM DRIP PRE-MIX 100 ML IV SCH (06:09)
[2020-05-22 06:54] VITALS: BP 130/71
--- NOTE | 2020-05-22 07:35 | Diagnostic Imaging Report ---
Indication: Alcohol withdrawal. Hypoxia. COMPARISON: 05/21/2020 FINDINGS: Single frontal radiograph view the chest was obtained demonstrates indwelling endotracheal tube below the clavicular heads and above the darcie. Gastric tube tip extends inferiorly beyond the [id number]. Right upper extremity PICC line is in stable position. Lungs are clear. There is no focal consolidation, large effusion, nor pneumothorax. Cardiac silhouette and pulmonary vasculature are within normal limits. Osseous structures are unchanged. IMPRESSION: 1. Lines and tubes as above. Otherwise, no acute cardiopulmonary process. Dictated by: Dictated on workstation # [id number]
--- NOTE | 2020-05-22 08:16 | Progress Note - Hospitalist ---
Subjective HPI/CC On Admission Date Seen by Provider: May 22, 2020 Time Seen by Provider: 08:14 Pt is a 70yoCM with a PMH of alcohol abuse, HTN, HLD who presented to the ER due to altered mental status. He is currently intubated and sedated and ROS and HPI are limited by that. All history obtained from the records. He was admitted roughly one year about and reported that he drinks at least 6-8 beers per day. Per the ER note he has not drank in over 24 hours but I'm unsure of his exact timing for last drink. He was found to be extremely hypomagnesemic and was admitted to the ICU. Overnight he became more lethargic and unable to participate in care. He was no longer able to protect his airway and he was intubated this morning. Subjective/Events-last exam Pt remains on a vent. No events overnight. Weaning oxygen. Objective Exam Vital Signs Vital Signs Date Time Temp Pulse Resp B/P (MAP) Pulse Ox O2 Delivery O2 Flow Rate FiO2 05/22/20 07:23 36.0 05/22/20 06:54 55 24 95 30 05/22/20 06:00 129/70 Mechanical Ventilator 30.00 Capillary Refill : Less Than 3 Seconds General Appearance: Chronically ill, Other (intubated) Respiratory: Lungs Clear, No Respiratory Distress Cardiovascular: Regular Rate, Rhythm, No Murmur Gastrointestinal: Normal Bowel Sounds, Non Tender, Soft Neurologic/Psychiatric: Other (sedated, appears comfortable) Results/Procedures Lab Laboratory Tests 05/21/20 12:35 05/22/20 02:00 Patient resulted labs reviewed. Imaging: Reviewed Imaging Report Assessment/Plan Assessment and Plan Assess & Plan/Chief Complaint Alcohol Withdrawal Acute Respiratory Failure Hypomagnesemia- resolved Hypokalemia Maintain on vent, Pulm/TeleICU consulted Replace K per protocol Mis Manager consult when awake Continue Thiamine and Folic Acid HTN BP well controlled currently, trend CAD Lip bleeding noted by ER so will hold DAPT for now and monitor as already getting Lovenox Plts WNL DVT ppx: Lovenox Diagnosis/Problems Diagnosis/Problems (1) Acute respiratory failure (2) Alcohol withdrawal Status: Acute (3) Altered mental status Status: Acute (4) Hypomagnesemia Status: Acute (5) Hypokalemia Status: Acute (6) DVT prophylaxis Status: Acute (7) HTN (hypertension) Status: Chronic Clinical Quality Measures DVT/VTE Risk/Contraindication: Risk Factor Score Per Nursin RFS Level Per Nursing on Admit: 4+=Very High ALEXY TROTTER MD May 22, 2020 08:16
--- NOTE | 2020-05-22 08:26 | Occ Therapy Progress Note ---
Therapy Progress Note OT continues to monitor pt. Pt. continues on mechanical ventilation and sedation. Please send new OT orders when pt. is medically stable. Thank you for this referral. [id number] DANIELA IVORY OT May 22, 2020 08:26
[2020-05-22] MEDS: FOLIC ACID 5MG/ML 10 ML IV SCH (08:39)
[2020-05-22] MEDS: ENOXAPARIN 40 MG/0.4 ML (LOVENOX) SYR SC SCH (08:40)
[2020-05-22] MEDS: PANTOPRAZOLE 40 MG (PROTONIX) VIAL IV SCH (08:40)
[2020-05-22] MEDS: LEVETIRACETAM 1,000 MG/NS 100 ML IVPB IV SCH ×4 (08:40→20:52)
[2020-05-22] MEDS: THIAMINE 100 MG/ML 2 ML (VITAMIN B-1) VIAL IV SCH (08:55)
[2020-05-22] MEDS ORDERED: FOLI0.8T PO (10:07)
[2020-05-22] MEDS ORDERED: PHOS250T5 PO (10:07)
[2020-05-22] MEDS ORDERED: MAGN400T39 PO (10:07)
--- NOTE | 2020-05-22 10:13 | NUR ---
UNABLE TO SPEAK WITH THE PT AT THIS TIME. I DID REACH OUT HID DAUGHTER (ANGELIQUE) AND WAS TOLD HIS PCP WAS NANDA CALVILLO IN [place]. I CALLED DR. CHIN OFFICE AND GOT A MEDICATION LIST AND WAS ALSO TOLD HE USES [facility] IN [facility]. I USED THE MED LIST FROM DR. CALVILLO WELL A LIST FROM [facility] TO ENTER THE MED REC [facility] LET ME KNOW THAT THEY BUBBLE PACK ALL HIS MEDICATIONS AND MAIL THEM OUT TO HIM ONCE A MONTH. THE FOLLOWING MEDICATIONS WERE FILLED ON 04-28-2020: PHOSPHA 250MG #60/30DS LISINOPRIL 20MG #60/30DS FOLIC ACID 800MCG #30/30DS MAG-OX 400MG #30/30DS GARLIC CAPS 1000MG #30/30DS FLUOXETINE 20MG #30/30DS PRAVASTATIN 40MG #30/30DS CLOPIDOGREL 75MG #30/30DS AMLODIPINE 10MG #30/30DS OMEPRAZOLE 20MG #30/30DS Addendum: 05/22/20 at 1021 by MELIDA JOHNSON CPhT ALSO PER THE NURSES NOTE REGARDING THE PTS EYE DROPS- I DID NOT INCLUDE THEM ON THE MED REC
[2020-05-22 10:15] VITALS: BP 117/65
--- NOTE | 2020-05-22 10:30 | NUR ---
THIS NURSE UPDATED DAUGHTER ANGELIQUE ON PT CONDITION.
--- NOTE | 2020-05-22 10:57 | NUR ---
THIS NURSE NOTIFIED DR HALEY WITH EICU PT HAS HAD LOW URINE OUTPUT. ORDER GIVEN FOR BOLUS. NURSE WAS INSTRUCTED TO GIVE 500ML THEN SEE IF THE PT RESPONDS AND NOTIFY DR HALEY.
[2020-05-22] MEDS ORDERED: D5 LR IV SOLUTION 1,000 ML IV SCH (11:00)
--- NOTE | 2020-05-22 11:09 | Physical Therapy Progress Note ---
Therapy Progress Note PROM B LE's performed. PUMA ADAMES PT May 22, 2020 11:09
[2020-05-22] MEDS: DexMEDEtomidine PRE MIX 100 ML IV SCH ×2 (11:58→23:46)
[2020-05-22] MEDS: PROPOFOL DRIP (ICU) 100 ML IV SCH (13:03)
--- NOTE | 2020-05-22 13:50 | NUR ---
THIS NURSE NOTIFIED DR HALEY OF PT URINE OUTPUT. ORDER GIVEN TO GIVE THE OTHER 500 ML OF D5LR ORDERED. WILL CONTINUE TO MONITOR.
[2020-05-23] MEDS: inSUlin ASPART (NovoLOG) 1 UNIT/0.01 ML (CHARGE PER UNIT) SQ SCH ×4 (03:13→18:37)
[2020-05-23] MEDS: PROPOFOL DRIP (ICU) 100 ML IV SCH ×3 (03:22→20:57)
[2020-05-23] MEDS: MIDAZOLAM DRIP PRE-MIX 100 ML IV SCH (03:23)
[2020-05-23 03:56] LABS: ABG BASE EXCESS -0.8 MMOL/L (-2.5-2.5); ABG OXYGEN SATURATION 94 % (94-100); ABG PCO2 34 MMHG (35-45); ABG PH 7.44 (7.37-7.43); ABG PO2 70 MMHG (79-93); ABG TCO2 23.9 MMOL/L (21.0-31.0)
[2020-05-23 03:56] LABS: BASOPHILS # (AUTO) 0.1 10^3/uL (0.0-0.1); BASOPHILS % (AUTO) 1 % (0-10); EOSINOPHILS # (AUTO) 0.1 10^3/uL (0.0-0.3); EOSINOPHILS % (AUTO) 1 % (0-10); HEMATOCRIT 35 % (40-54); HEMOGLOBIN 11.8 g/dL (13.3-17.7); LYMPHOCYTES # (AUTO) 1.3 10^3/uL (1.0-4.0); LYMPHOCYTES % (AUTO) 14 % (12-44); MEAN CORPUSCULAR HEMOGLOBIN 33 pg (25-34); MEAN CORPUSCULAR HGB CONC 34 g/dL (32-36); MEAN CORPUSCULAR VOLUME 97 fL (80-99); MEAN PLATELET VOLUME 10.7 fL (9.0-12.2); MONOCYTES # (AUTO) 0.9 10^3/uL (0.0-1.0); MONOCYTES % (AUTO) 10 % (0-12); NEUTROPHILS # (AUTO) 7.3 10^3/uL (1.8-7.8); NEUTROPHILS % (AUTO) 75 % (42-75); PLATELET COUNT 223 10^3/uL (130-400); WHITE BLOOD COUNT 9.7 10^3/uL (4.3-11.0)
[2020-05-23 03:59] LABS: ALLENS TEST POSITIVE; INSPIRED O2 30; PATIENT TEMP 36.8; VENTILATOR YES
[2020-05-23 04:04] LABS: POTASSIUM 3.5 MMOL/L (3.6-5.0)
[2020-05-23 04:10] LABS: CREATININE SERUM 1.43 MG/DL (0.60-1.30); PHOSPHORUS 3.4 MG/DL (2.3-4.7)
[2020-05-23 04:12] LABS: MAGNESIUM 1.8 MG/DL (1.6-2.4)
--- NOTE | 2020-05-23 05:13 | Diagnostic Imaging Report ---
Indication: Respiratory failure Portable chest 3:26 AM ET tube projects over trachea. NG tube projects over the stomach. Right upper extremity PICC line tip projects over the SVC Heart size and pulmonary vascularity are normal. Lungs are clear. There are no effusions or pneumothoraces. IMPRESSION: Stable chest compared to the previous day. Dictated by: Dictated on workstation # [id number]
[2020-05-23] MEDS: MAGNESIUM 1 GM/100 ML IVPB 100 ML IV SCH (06:28)
[2020-05-23] MEDS: KCL 20 MEQ TAB (K-DUR) PO SCH (06:28)
[2020-05-23] MEDS: POTASSIUM CL 10MEQ/50ML IVPB 50 ML IV SCH ×4 (06:28→19:47)
[2020-05-23 07:19] VITALS: BP 120/67
[2020-05-23] MEDS: LEVETIRACETAM 1,000 MG/NS 100 ML IVPB IV SCH ×4 (08:00→20:57)
[2020-05-23] MEDS: D5 1/2 NS 1000 ML IV SOLUTION 1,000 ML IV PRN ×2 (08:01→18:07)
[2020-05-23] MEDS: ENOXAPARIN 40 MG/0.4 ML (LOVENOX) SYR SC SCH (08:02)
[2020-05-23] MEDS: PANTOPRAZOLE 40 MG (PROTONIX) VIAL IV SCH (08:02)
[2020-05-23 08:28] LABS: CLARITY,URINE CLEAR; COLOR,URINE ORANGE; GLUCOSE, URINE (UA) NEGATIVE (NEGATIVE); KETONES,URINE NEGATIVE (NEGATIVE); LEUKOCYTE ESTERASE ,URINE 1+ (NEGATIVE); NITRITE,URINE NEGATIVE (NEGATIVE); PH,URINE 5.5 (5-9); PROTEIN,URINE 1+ (NEGATIVE)
[2020-05-23 08:37] LABS: AMORPHOUS SEDIMENT,UR LARGE AMOR URATES /LPF; BACTERIA,URINE MODERATE /HPF; URIC ACID CRYSTALS,URINE RARE /LPF; WBC,URINE 25-50 /HPF
[2020-05-23] MEDS: DexMEDEtomidine PRE MIX 100 ML IV SCH ×3 (09:28→23:34)
[2020-05-23] MEDS: NS IV SCH ×3 (09:45)
[2020-05-23] MEDS: FOLIC ACID IV SCH ×3 (09:45)
[2020-05-23] MEDS: THIAMINE 100 MG IV SCH ×3 (09:45)
--- NOTE | 2020-05-23 10:07 | Progress Note - Hospitalist ---
Subjective HPI/CC On Admission Date Seen by Provider: May 23, 2020 Time Seen by Provider: 10:04 Pt is a 70yoCM with a PMH of alcohol abuse, HTN, HLD who presented to the ER due to altered mental status. He is currently intubated and sedated and ROS and HPI are limited by that. All history obtained from the records. He was admitted roughly one year about and reported that he drinks at least 6-8 beers per day. Per the ER note he has not drank in over 24 hours but I'm unsure of his exact timing for last drink. He was found to be extremely hypomagnesemic and was admitted to the ICU. Overnight he became more lethargic and unable to participate in care. He was no longer able to protect his airway and he was intubated this morning. Subjective/Events-last exam Pt remains intubated and sedated. No ROS possible. RN states doing well. Objective Exam Vital Signs Vital Signs Date Time Temp Pulse Resp B/P (MAP) Pulse Ox O2 Delivery O2 Flow Rate FiO2 05/23/20 09:32 94 Mechanical Ventilator 40 05/23/20 09:28 36.3 59 24 115/65 40.00 Capillary Refill : Less Than 3 Seconds General Appearance: No Apparent Distress, WD/WN Respiratory: Lungs Clear, Other (on vent) Cardiovascular: Regular Rate, Rhythm, No Murmur Gastrointestinal: Normal Bowel Sounds, Non Tender, Soft Neurologic/Psychiatric: Other (sedated, appears comfortable) Results/Procedures Lab Laboratory Tests 05/23/20 03:35 Patient resulted labs reviewed. Imaging: Reviewed Imaging Report Assessment/Plan Assessment and Plan Assess & Plan/Chief Complaint Alcohol Withdrawal Acute Respiratory Failure Hypomagnesemia- resolved Hypokalemia Maintain on vent, Pulm/TeleICU consulted Replace K per protocol Blood Or Blood Bank Technician consult when awake Continue Thiamine and Folic Acid If unable to extubate today, will start tube feeds HTN BP well controlled currently, trend CAD Lip bleeding noted by ER so will hold DAPT for now and monitor as already getting Lovenox Plts WNL DVT ppx: Lovenox Diagnosis/Problems Diagnosis/Problems (1) Acute respiratory failure (2) Alcohol withdrawal Status: Acute (3) Altered mental status Status: Acute (4) Hypomagnesemia Status: Acute (5) Hypokalemia Status: Acute (6) DVT prophylaxis Status: Acute (7) HTN (hypertension) Status: Chronic Clinical Quality Measures DVT/VTE Risk/Contraindication: Risk Factor Score Per Nursin RFS Level Per Nursing on Admit: 4+=Very High ALEXY TROTTER MD May 23, 2020 10:07
--- NOTE | 2020-05-23 10:15 | Physical Therapy Progress Note ---
Therapy Progress Note PROM all extremities in supine. DIXON ANSARI PT May 23, 2020 10:15
--- NOTE | 2020-05-23 10:42 | NUR ---
DR TROTTER NOTIFIED OF PT'S DECREASED URINE OUTPUT AND UA RESULTS, NO NEW ORDERS RECEIVED AT THIS TIME WILL CONTINUE TO MONITOR.
[2020-05-23 10:44] VITALS: BP 123/66
[2020-05-23] MEDS: cefTRIAXone FOR IV USE 1,000 MG in WATER (STERILE) FOR INJECTION 10 ML IV SCH (10:57)
--- NOTE | 2020-05-23 13:20 | NUR ---
IVF INCREASED TO 125 PER E-ICU ORDERS DURING ROUNDING, PT HAS BEEN OFF ALL SEDATION FOR APPROXIMATELY 20 MIN WITH NO RESPONSE, WILL CONTINUE TO LEAVE OFF SEDATION PER E-ICU INSTRUCTIONS, WILL CONTINUE TO MONITOR.
[2020-05-23 14:29] VITALS: BP 141/66
--- NOTE | 2020-05-23 14:52 | NUR ---
During care rounds, it was noted that pt is still intubated. Note pt is currently NPO x2d, per chart review. Note plan of care is to wake pt for extubation. If pt fails extubation, would recommend initiation of TF of Pulmocare at 15ml/hr with 25ml free water flushes q4h. Will continue to follow and reassess as pt needs, intake, and status change. Meek Joseph, MS RD LD [phone] (cell)
--- NOTE | 2020-05-23 15:12 | NUR ---
1500 THIS RN NOTIFIED E-ICU DR, PT IS OFF ALL SEDATION AND SITTING UP IN BED AND IS ABLE TO FOLLOW COMMANDS. ORDERS RECEIVED TO PLACE PT ON PRESSURE SUPPORT ON THE VENTILATOR. RT NOTIFIED AND PT SWITCHED OVER AT 1512. THIS RN IN ROOM AND PT'S SA02 NOTED TO BE 92% WILL CONTINUE TO MONITOR CLOSELY.
--- NOTE | 2020-05-23 15:52 | NUR ---
PT DROPPED TO LOW 80'S ON PRESSURE SUPPORT RT PLACED PT BACK ON AC MODE. THIS RN LEFT MESSAGE WITH E-ICU
--- NOTE | 2020-05-23 16:08 | NUR ---
DR WITH E-ICU NOTIFIED OF PT BEING PLACED BACK ON AC MODE, ORDERS TO CONTINUE PRECEDEX AND PROPOFOL, DR NOTIFIED OF DECREASED URINE OUTPUT, IVF WERE INCREASED APPROXIMATELY 1 HOUR PRIOR TO EMPTYING MARITNEZ AT 1400. WILL CONTINUE TO MONITOR.
[2020-05-23] MEDS ORDERED: fentaNYL INJECTION 100 MCG/2 ML AMP IVP PRN (16:15)
[2020-05-23 16:53] LABS: POTASSIUM 3.4 MMOL/L (3.6-5.0)
[2020-05-23 17:00] LABS: MAGNESIUM 1.7 MG/DL (1.6-2.4)
[2020-05-23 18:25] VITALS: BP 159/84
[2020-05-23] MEDS ORDERED: POTASSIUM CL 10MEQ/50ML IVPB 50 ML IV SCH (19:00)
[2020-05-23 22:16] VITALS: BP 152/82
[2020-05-24] MEDS: inSUlin ASPART (NovoLOG) 1 UNIT/0.01 ML (CHARGE PER UNIT) SQ SCH ×4 (01:14→17:36)
[2020-05-24 02:05] VITALS: BP 148/79
[2020-05-24] MEDS: D5 1/2 NS 1000 ML IV SOLUTION 1,000 ML IV PRN ×2 (03:18→09:56)
[2020-05-24] MEDS: DexMEDEtomidine PRE MIX 100 ML IV SCH ×4 (03:18→23:03)
[2020-05-24 03:55] LABS: BASOPHILS % (AUTO) 0 % (0-10); EOSINOPHILS # (AUTO) 0.1 10^3/uL (0.0-0.3); EOSINOPHILS % (AUTO) 1 % (0-10); HEMATOCRIT 37 % (40-54); HEMOGLOBIN 12.3 g/dL (13.3-17.7); LYMPHOCYTES # (AUTO) 1.1 10^3/uL (1.0-4.0); LYMPHOCYTES % (AUTO) 11 % (12-44); MEAN CORPUSCULAR HEMOGLOBIN 33 pg (25-34); MEAN CORPUSCULAR HGB CONC 34 g/dL (32-36); MEAN CORPUSCULAR VOLUME 97 fL (80-99); MEAN PLATELET VOLUME 10.7 fL (9.0-12.2); MONOCYTES # (AUTO) 0.9 10^3/uL (0.0-1.0); MONOCYTES % (AUTO) 9 % (0-12); NEUTROPHILS % (AUTO) 78 % (42-75); PLATELET COUNT 217 10^3/uL (130-400); WHITE BLOOD COUNT 10.3 10^3/uL (4.3-11.0)
[2020-05-24 03:56] LABS: ABG BASE EXCESS -1.6 MMOL/L (-2.5-2.5); ABG OXYGEN SATURATION 94 % (94-100); ABG PCO2 33 MMHG (35-45); ABG PH 7.44 (7.37-7.43); ABG PO2 73 MMHG (79-93); ABG TCO2 23.3 MMOL/L (21.0-31.0); ALLENS TEST POSITIVE; INSPIRED O2 30; PATIENT TEMP 36.1; VENTILATOR YES
[2020-05-24 04:11] LABS: CHLORIDE 105 MMOL/L (98-107); POTASSIUM 3.4 MMOL/L (3.6-5.0)
[2020-05-24 04:12] LABS: SODIUM 137 MMOL/L (135-145)
[2020-05-24 04:13] LABS: CALCIUM 8.1 MG/DL (8.5-10.1); GLUCOSE 156 MG/DL (70-105)
[2020-05-24 04:15] LABS: CARBON DIOXIDE 20 MMOL/L (21-32)
[2020-05-24 04:17] LABS: CREATININE SERUM 1.12 MG/DL (0.60-1.30); GFR ESTIMATED > 60; PHOSPHORUS 2.7 MG/DL (2.3-4.7)
[2020-05-24 04:18] LABS: BUN/CREATININE RATIO 11
[2020-05-24 04:19] LABS: MAGNESIUM 1.6 MG/DL (1.6-2.4)
[2020-05-24] MEDS: POTASSIUM CL 10MEQ/50ML IVPB 50 ML IV SCH ×3 (04:25→06:08)
[2020-05-24] MEDS: MAGNESIUM 1 GM/100 ML IVPB 100 ML IV SCH ×3 (04:25→06:07)
[2020-05-24] MEDS: KCL 20 MEQ TAB (K-DUR) PO SCH (04:25)
[2020-05-24] MEDS: MIDAZOLAM DRIP PRE-MIX 100 ML IV SCH (05:02)
[2020-05-24] MEDS: PROPOFOL DRIP (ICU) 100 ML IV SCH ×4 (05:45→23:03)
[2020-05-24 07:22] VITALS: BP 110/64
[2020-05-24] MEDS: ENOXAPARIN 40 MG/0.4 ML (LOVENOX) SYR SC SCH (07:54)
[2020-05-24] MEDS: LEVETIRACETAM 1,000 MG/NS 100 ML IVPB IV SCH ×4 (07:54→20:10)
[2020-05-24] MEDS: PANTOPRAZOLE 40 MG (PROTONIX) VIAL IV SCH (07:54)
[2020-05-24 08:02] LABS: BILIRUBIN,URINE 1+ (NEGATIVE)
--- NOTE | 2020-05-24 08:29 | Progress Note - Hospitalist ---
Subjective HPI/CC On Admission Date Seen by Provider: May 24, 2020 Time Seen by Provider: 08:23 Pt is a 70yoCM with a PMH of alcohol abuse, HTN, HLD who presented to the ER due to altered mental status. He is currently intubated and sedated and ROS and HPI are limited by that. All history obtained from the records. He was admitted roughly one year about and reported that he drinks at least 6-8 beers per day. Per the ER note he has not drank in over 24 hours but I'm unsure of his exact timing for last drink. He was found to be extremely hypomagnesemic and was admitted to the ICU. Overnight he became more lethargic and unable to participate in care. He was no longer able to protect his airway and he was intubated this morning. Subjective/Events-last exam Pt remains intubated. No concerns per RN. Following commands. Objective Exam Vital Signs Vital Signs Date Time Temp Pulse Resp B/P (MAP) Pulse Ox O2 Delivery O2 Flow Rate FiO2 05/24/20 08:01 92 Mechanical Ventilator 35 05/24/20 07:52 36.4 05/24/20 07:22 54 24 05/24/20 06:00 136/74 35.00 Capillary Refill : Less Than 3 Seconds General Appearance: No Apparent Distress, WD/WN Respiratory: Lungs Clear, Other (on vent) Cardiovascular: Regular Rate, Rhythm, No Murmur Gastrointestinal: Normal Bowel Sounds, Non Tender, Soft Neurologic/Psychiatric: Other (sedated, appears comfortable, was able to squeeze my hand on command) Results/Procedures Lab Laboratory Tests 05/23/20 16:30 05/24/20 03:39 Patient resulted labs reviewed. Imaging: Reviewed Imaging Report Assessment/Plan Assessment and Plan Assess & Plan/Chief Complaint Alcohol Withdrawal Acute Respiratory Failure Hypomagnesemia- resolved Hypokalemia Maintain on vent, Pulm/TeleICU consulted Replace electrolytes per protocol [employer] Consultant consult when awake Continue Thiamine and Folic Acid Tube feeds to start HTN BP well controlled currently, trend CAD No further evidence of bleeding will resume Plavix Plts WNL DVT ppx: Lovenox Diagnosis/Problems Diagnosis/Problems (1) Acute respiratory failure (2) Alcohol withdrawal Status: Acute (3) Altered mental status Status: Acute (4) Hypomagnesemia Status: Acute (5) Hypokalemia Status: Acute (6) DVT prophylaxis Status: Acute (7) HTN (hypertension) Status: Chronic Clinical Quality Measures DVT/VTE Risk/Contraindication: Risk Factor Score Per Nursin RFS Level Per Nursing on Admit: 4+=Very High ALEXY TROTTER MD May 24, 2020 08:29
[2020-05-24] MEDS: NS IV SCH ×3 (09:42)
[2020-05-24] MEDS: THIAMINE 100 MG IV SCH ×3 (09:42)
[2020-05-24] MEDS: FOLIC ACID IV SCH ×3 (09:42)
[2020-05-24] MEDS: CLOPIDOGREL 75 MG (PLAVIX) TABLET PO SCH (09:44)
[2020-05-24] MEDS: FLUoxetine HCL 20 MG (PROzac) CAP PO SCH (09:44)
--- NOTE | 2020-05-24 10:02 | Diagnostic Imaging Report ---
Indication: Hypoxia. Comparison made with prior examination of 05/23/2020. Findings: There is cardiomegaly. There is right basilar atelectasis and/or pneumonitis. No pleural effusion or pneumothorax. Mediastinum is unremarkable. Lines and tubes in satisfactory position. Impression: Cardiomegaly with some right basilar subsegmental atelectasis and/or pneumonitis. Dictated by: Dictated on workstation # [id number]
[2020-05-24] MEDS: cefTRIAXone FOR IV USE 1,000 MG in WATER (STERILE) FOR INJECTION 10 ML IV SCH (10:22)
[2020-05-24 11:51] VITALS: BP 109/73
--- NOTE | 2020-05-24 11:51 | Physical Therapy Progress Note ---
Therapy Progress Note Pt remained intubated, will continue to monitor patient and initiate physical therapy services when medically appropriate. ALINE COVARRUBIAS PT May 24, 2020 11:51
[2020-05-24 16:03] VITALS: BP 117/65
[2020-05-24 18:19] VITALS: BP 117/65
[2020-05-24] MEDS: SIMvastatin 20 MG (ZOCOR) TAB PO SCH (20:10)
[2020-05-24 21:35] VITALS: BP 141/78
[2020-05-25] VITALS (7 sets, daily range): BP systolic 105–181; BP diastolic 50–79
[2020-05-25] MEDS: inSUlin ASPART (NovoLOG) 1 UNIT/0.01 ML (CHARGE PER UNIT) SQ SCH ×5 (00:17→23:34)
[2020-05-25] MEDS: D5 1/2 NS 1000 ML IV SOLUTION 1,000 ML IV PRN ×3 (01:51→16:47)
[2020-05-25 02:17] LABS: ABG BASE EXCESS -2.2 MMOL/L (-2.5-2.5); ABG OXYGEN SATURATION 93 % (94-100); ABG PCO2 32 MMHG (35-45); ABG PH 7.43 (7.37-7.43); ABG PO2 69 MMHG (79-93); ABG TCO2 22.6 MMOL/L (21.0-31.0)
[2020-05-25 02:18] LABS: ALLENS TEST POSITIVE; INSPIRED O2 30; PATIENT TEMP 36.2; VENTILATOR YES
[2020-05-25 02:19] LABS: BASOPHILS % (AUTO) 0 % (0-10); EOSINOPHILS # (AUTO) 0.2 10^3/uL (0.0-0.3); EOSINOPHILS % (AUTO) 3 % (0-10); HEMATOCRIT 34 % (40-54); HEMOGLOBIN 11.3 g/dL (13.3-17.7); LYMPHOCYTES # (AUTO) 1.2 10^3/uL (1.0-4.0); LYMPHOCYTES % (AUTO) 14 % (12-44); MEAN CORPUSCULAR HEMOGLOBIN 32 pg (25-34); MEAN CORPUSCULAR HGB CONC 33 g/dL (32-36); MEAN CORPUSCULAR VOLUME 98 fL (80-99); MEAN PLATELET VOLUME 10.7 fL (9.0-12.2); MONOCYTES # (AUTO) 0.9 10^3/uL (0.0-1.0); MONOCYTES % (AUTO) 10 % (0-12); NEUTROPHILS # (AUTO) 6.2 10^3/uL (1.8-7.8); NEUTROPHILS % (AUTO) 73 % (42-75); PLATELET COUNT 237 10^3/uL (130-400); WHITE BLOOD COUNT 8.5 10^3/uL (4.3-11.0)
[2020-05-25 02:24] LABS: CHLORIDE 106 MMOL/L (98-107); POTASSIUM 3.1 MMOL/L (3.6-5.0); SODIUM 137 MMOL/L (135-145)
[2020-05-25 02:25] LABS: CALCIUM 7.8 MG/DL (8.5-10.1)
[2020-05-25 02:26] LABS: GLUCOSE 134 MG/DL (70-105); TRIGLYCERIDES 63 MG/DL (<150)
[2020-05-25 02:28] LABS: CARBON DIOXIDE 20 MMOL/L (21-32)
[2020-05-25 02:29] LABS: PHOSPHORUS 3.3 MG/DL (2.3-4.7)
[2020-05-25 02:30] LABS: CREATININE SERUM 1.02 MG/DL (0.60-1.30); GFR ESTIMATED > 60
[2020-05-25 02:31] LABS: BUN/CREATININE RATIO 10
[2020-05-25 02:32] LABS: MAGNESIUM 1.8 MG/DL (1.6-2.4)
[2020-05-25] MEDS: MIDAZOLAM DRIP PRE-MIX 100 ML IV SCH (03:02)
[2020-05-25] MEDS: POTASSIUM CL 10MEQ/50ML IVPB 50 ML IV SCH ×5 (04:19→06:38)
[2020-05-25] MEDS: MAGNESIUM 1 GM/100 ML IVPB 100 ML IV SCH (04:19)
[2020-05-25] MEDS: KCL 20 MEQ TAB (K-DUR) PO SCH (04:19)
[2020-05-25] MEDS: PROPOFOL DRIP (ICU) 100 ML IV SCH ×3 (06:54→13:55)
--- NOTE | 2020-05-25 07:21 | NUR ---
THIS RN UPDATED PATIENT'S DAUGHTER, ANGELIQUE, AT THIS TIME. PATIENT DID NOT PASS WEANING TRIAL THIS MORNING SO PER DR. JUNE WITH EICU PATIENT'S SEDATION RESTARTED AND PATIENT WILL REMAIN ON VENTILATOR AT THIS TIME. WILL CONTINUE TO MONITOR.
--- NOTE | 2020-05-25 07:50 | Diagnostic Imaging Report ---
EXAM: CHEST 1 VIEW, AP/PA ONLY INDICATION: Hypoxia. Respiratory failure. COMPARISON: Chest radiograph 05/24/2020. FINDINGS: Cardiomegaly with normal central pulmonary vascularity. Persistent atelectasis or infiltrate in the right lung base. No definite pleural effusion or pneumothorax. Right PICC tip mid SVC. ETT tip between the level of the clavicles and darcie. NG tube tip and side-port in stomach. IMPRESSION: 1. Persistent atelectasis or infiltrate in the right lung base. 2. Support lines in the expected positions. Dictated by: Dictated on workstation # [id number]
[2020-05-25] MEDS: CLOPIDOGREL 75 MG (PLAVIX) TABLET PO SCH (08:07)
[2020-05-25] MEDS: ENOXAPARIN 40 MG/0.4 ML (LOVENOX) SYR SC SCH (08:07)
[2020-05-25] MEDS: FLUoxetine HCL 20 MG (PROzac) CAP PO SCH (08:07)
[2020-05-25] MEDS: LEVETIRACETAM 1,000 MG/NS 100 ML IVPB IV SCH ×4 (08:07→20:39)
[2020-05-25] MEDS: PANTOPRAZOLE 40 MG (PROTONIX) VIAL IV SCH (08:07)
--- NOTE | 2020-05-25 08:58 | Progress Note - Hospitalist ---
Subjective HPI/CC On Admission Date Seen by Provider: May 25, 2020 Time Seen by Provider: 08:55 Pt is a 70yoCM with a PMH of alcohol abuse, HTN, HLD who presented to the ER due to altered mental status. He is currently intubated and sedated and ROS and HPI are limited by that. All history obtained from the records. He was admitted roughly one year about and reported that he drinks at least 6-8 beers per day. Per the ER note he has not drank in over 24 hours but I'm unsure of his exact timing for last drink. He was found to be extremely hypomagnesemic and was admitted to the ICU. Overnight he became more lethargic and unable to participate in care. He was no longer able to protect his airway and he was intubated this morning. Subjective/Events-last exam Pt remains intubated and sedated. No complaints per RN. Overnight RN spoke with daughter twice last night. Objective Exam Vital Signs Vital Signs Date Time Temp Pulse Resp B/P (MAP) Pulse Ox O2 Delivery O2 Flow Rate FiO2 05/25/20 08:26 95 Mechanical Ventilator 30 05/25/20 08:07 90 130/86 05/25/20 08:00 32 30.00 05/25/20 03:26 36.3 Capillary Refill : Less Than 3 Seconds General Appearance: Other (sedated, on vent) Respiratory: Lungs Clear, Other (on vent) Cardiovascular: Regular Rate, Rhythm, No Murmur Gastrointestinal: Normal Bowel Sounds, Non Tender, Soft Genital/Rectal: Other (cardona in place) Neurologic/Psychiatric: Other (sedated, appears comfortable) Results/Procedures Lab Laboratory Tests 05/25/20 02:00 Patient resulted labs reviewed. Imaging: Reviewed Imaging Report Assessment/Plan Assessment and Plan Assess & Plan/Chief Complaint Alcohol Withdrawal Acute Respiratory Failure Hypomagnesemia- resolved Hypokalemia Maintain on vent, Pulm/TeleICU consulted- failed weaning trial this AM Replace electrolytes per protocol Recreation Worker consult when awake Continue Thiamine and Folic Acid Continue tube feeds HTN BP well controlled currently, trend CAD Continue home plavix DVT ppx: Lovenox Diagnosis/Problems Diagnosis/Problems (1) Acute respiratory failure (2) Alcohol withdrawal Status: Acute (3) Altered mental status Status: Acute (4) Hypomagnesemia Status: Acute (5) Hypokalemia Status: Acute (6) DVT prophylaxis Status: Acute (7) HTN (hypertension) Status: Chronic Clinical Quality Measures DVT/VTE Risk/Contraindication: Risk Factor Score Per Nursin RFS Level Per Nursing on Admit: 4+=Very High ALEXY TROTTER MD May 25, 2020 08:58
[2020-05-25] MEDS: FOLIC ACID IV SCH ×3 (09:00)
[2020-05-25] MEDS: NS IV SCH ×3 (09:00)
[2020-05-25] MEDS: THIAMINE 100 MG IV SCH ×3 (09:00)
[2020-05-25] MEDS: cefTRIAXone FOR IV USE 1,000 MG in WATER (STERILE) FOR INJECTION 10 ML IV SCH (10:43)
[2020-05-25] MEDS: DexMEDEtomidine PRE MIX 100 ML IV SCH (11:52)
[2020-05-25] MEDS: SIMvastatin 20 MG (ZOCOR) TAB PO SCH (23:37)
[2020-05-26] MEDS: PROPOFOL DRIP (ICU) 100 ML IV SCH ×3 (00:47→17:51)
[2020-05-26 00:58] VITALS: BP 165/80
[2020-05-26] MEDS: D5 1/2 NS 1000 ML IV SOLUTION 1,000 ML IV PRN ×3 (01:18→17:51)
[2020-05-26 03:35] LABS: ABG BASE EXCESS -1.9 MMOL/L (-2.5-2.5); ABG OXYGEN SATURATION 95 % (94-100); ABG PCO2 32 MMHG (35-45); ABG PH 7.44 (7.37-7.43); ABG PO2 74 MMHG (79-93); ABG TCO2 22.9 MMOL/L (21.0-31.0)
[2020-05-26 03:37] LABS: ALLENS TEST POSITIVE; INSPIRED O2 25; PATIENT TEMP 35.5; VENTILATOR YES
[2020-05-26 03:41] LABS: BASOPHILS % (AUTO) 0 % (0-10); EOSINOPHILS # (AUTO) 0.3 10^3/uL (0.0-0.3); EOSINOPHILS % (AUTO) 4 % (0-10); HEMATOCRIT 35 % (40-54); HEMOGLOBIN 11.5 g/dL (13.3-17.7); LYMPHOCYTES # (AUTO) 1.1 10^3/uL (1.0-4.0); LYMPHOCYTES % (AUTO) 15 % (12-44); MEAN CORPUSCULAR HEMOGLOBIN 32 pg (25-34); MEAN CORPUSCULAR HGB CONC 33 g/dL (32-36); MEAN CORPUSCULAR VOLUME 98 fL (80-99); MEAN PLATELET VOLUME 10.8 fL (9.0-12.2); MONOCYTES # (AUTO) 0.7 10^3/uL (0.0-1.0); MONOCYTES % (AUTO) 10 % (0-12); NEUTROPHILS # (AUTO) 5.1 10^3/uL (1.8-7.8); NEUTROPHILS % (AUTO) 71 % (42-75); PLATELET COUNT 241 10^3/uL (130-400); WHITE BLOOD COUNT 7.1 10^3/uL (4.3-11.0)
[2020-05-26] MEDS: MIDAZOLAM DRIP PRE-MIX 100 ML IV SCH (03:42)
[2020-05-26 03:58] LABS: ALBUMIN 2.8 GM/DL (3.2-4.5); CHLORIDE 110 MMOL/L (98-107); POTASSIUM 3.6 MMOL/L (3.6-5.0); SODIUM 140 MMOL/L (135-145)
[2020-05-26 03:59] LABS: CALCIUM 7.9 MG/DL (8.5-10.1)
[2020-05-26 04:00] LABS: GLUCOSE 124 MG/DL (70-105); TOTAL PROTEIN 5.5 GM/DL (6.4-8.2)
[2020-05-26 04:01] LABS: CARBON DIOXIDE 19 MMOL/L (21-32)
[2020-05-26 04:02] LABS: BILIRUBIN,TOTAL 0.3 MG/DL (0.1-1.0)
[2020-05-26 04:03] LABS: PHOSPHORUS 3.2 MG/DL (2.3-4.7)
[2020-05-26 04:04] LABS: ALKALINE PHOSPHATASE 70 U/L (40-136); GFR ESTIMATED > 60
[2020-05-26 04:05] LABS: BUN/CREATININE RATIO 7
[2020-05-26 04:06] LABS: MAGNESIUM 1.7 MG/DL (1.6-2.4)
[2020-05-26 04:07] LABS: ALANINE AMINOTRANSFERASE 9 U/L (0-55)
[2020-05-26] MEDS: inSUlin ASPART (NovoLOG) 1 UNIT/0.01 ML (CHARGE PER UNIT) SQ SCH ×3 (05:03→19:09)
[2020-05-26] MEDS: KCL 20 MEQ TAB (K-DUR) PO SCH (05:03)
[2020-05-26] MEDS: MAGNESIUM 1 GM/100 ML IVPB 100 ML IV SCH (05:03)
[2020-05-26] MEDS: POTASSIUM CL 10MEQ/50ML IVPB 50 ML IV SCH ×3 (05:03→05:38)
[2020-05-26 06:49] VITALS: BP 174/88
--- NOTE | 2020-05-26 07:32 | Diagnostic Imaging Report ---
INDICATION: Acute mental status change Portable AP view of chest is obtained with comparison made to study of one day earlier. Right perihilar and bilateral basilar atelectasis is again noted. There is no evidence of pneumothorax. No new consolidation is identified. Support tubes and catheters are in stable position with surgical findings in the left shoulder and monitoring leads overlying the chest. IMPRESSION: Bilateral atelectasis similar to previous study. Dictated by: Dictated on workstation # [id number]
[2020-05-26] MEDS: FOLIC ACID IV SCH ×3 (08:41)
[2020-05-26] MEDS: FLUoxetine HCL 20 MG (PROzac) CAP PO SCH (08:41)
[2020-05-26] MEDS: THIAMINE 100 MG IV SCH ×3 (08:41)
[2020-05-26] MEDS: LEVETIRACETAM 1,000 MG/NS 100 ML IVPB IV SCH ×4 (08:41→21:00)
[2020-05-26] MEDS: NS IV SCH ×3 (08:41)
[2020-05-26] MEDS: CLOPIDOGREL 75 MG (PLAVIX) TABLET PO SCH (08:41)
[2020-05-26] MEDS: PANTOPRAZOLE 40 MG (PROTONIX) VIAL IV SCH (08:41)
[2020-05-26] MEDS: cefTRIAXone FOR IV USE 1,000 MG in WATER (STERILE) FOR INJECTION 10 ML IV SCH (08:42)
[2020-05-26] MEDS: ENOXAPARIN 40 MG/0.4 ML (LOVENOX) SYR SC SCH (08:42)
[2020-05-26] MEDS: DexMEDEtomidine PRE MIX 100 ML IV SCH ×2 (09:02→16:18)
--- NOTE | 2020-05-26 13:58 | Progress Note - Hospitalist ---
Subjective HPI/CC On Admission Date Seen by Provider: May 26, 2020 Time Seen by Provider: 08:55 Pt is a 70yoCM with a PMH of alcohol abuse, HTN, HLD who presented to the ER due to altered mental status. He is currently intubated and sedated and ROS and HPI are limited by that. All history obtained from the records. He was admitted roughly one year about and reported that he drinks at least 6-8 beers per day. Per the ER note he has not drank in over 24 hours but I'm unsure of his exact timing for last drink. He was found to be extremely hypomagnesemic and was admitted to the ICU. Overnight he became more lethargic and unable to participate in care. He was no longer able to protect his airway and he was intubated this morning. Subjective/Events-last exam He is initubated and sedated. He has reportedly been following commands when sedation has been weaned. Objective Exam Vital Signs Vital Signs Date Time Temp Pulse Resp B/P (MAP) Pulse Ox O2 Delivery O2 Flow Rate FiO2 05/26/20 12:58 36.7 05/26/20 12:00 124 97 169/114 94 Mechanical Ventilator 40.00 05/26/20 09:00 35 Capillary Refill : Less Than 3 Seconds General Appearance: No Apparent Distress, WD/WN, Other (intubated and sedated) Respiratory: Lungs Clear, Normal Breath Sounds, No Respiratory Distress Cardiovascular: Regular Rate, Rhythm, No Edema, No Murmur Gastrointestinal: Normal Bowel Sounds, Soft Extremity: Normal Inspection, No Pedal Edema Neurologic/Psychiatric: Other (Sedated) Skin: Normal Color, Warm/Dry Results/Procedures Lab Laboratory Tests 05/26/20 03:20 Patient resulted labs reviewed. Imaging: Reviewed Imaging Report Assessment/Plan Assessment and Plan Assess & Plan/Chief Complaint Alcohol withdrawal Endotracheally intubated Remains intubated and sedated, minimal vent settings, extubate when able Replace electrolytes per protocol Director Of Healthcare Systems consult when awake Continue vitamin replacement Continue tube feeds HTN BP well controlled currently, trend CAD Continue home plavix DVT ppx: Lovenox Hypomagnesemia, resolved Hypokalemia, resolved Diagnosis/Problems Diagnosis/Problems (1) Alcohol withdrawal Status: Acute Qualifiers: Complication of substance-induced condition: with unspecified complication Qualified Codes: F10.239 - Alcohol dependence with withdrawal, unspecified (2) Endotracheally intubated Status: Acute Clinical Quality Measures DVT/VTE Risk/Contraindication: Risk Factor Score Per Nursin RFS Level Per Nursing on Admit: 4+=Very High ARTURO AGGARWAL MD May 26, 2020 13:58
[2020-05-26] MEDS ORDERED: hydrALAZINE (APRESOLINE) 25 MG TAB PO PRN (14:00)
[2020-05-26] MEDS ORDERED: amLODIPine 10 MG (NORVASC) TAB PO NR (14:00)
[2020-05-26] MEDS ORDERED: lisINopril 40 MG (PRINIVIL) TABLET PO NR (14:00)
--- NOTE | 2020-05-26 14:07 | Physical Therapy Progress Note ---
Therapy Progress Note Consulted with RN. They had decreased sedation and patient unable to tolerate. RN increasing sedation to relax patient. DIXON ANSARI PT May 26, 2020 14:07
[2020-05-26 14:15] VITALS: BP 164/99
--- NOTE | 2020-05-26 14:22 | NUR ---
RT ATTEMPTED TO GET SBT VITALS EARLIER. VC WAS 373 NIF WAS -8.8 PATIENT COULD SHAKE HEAD YES OR NO TO QUESTIONS BUT COULDN'T FOLLOW COMMANDS FOR BREATHING TRIAL.
--- NOTE | 2020-05-26 15:10 | NUR ---
During care rounds, it was noted that pt is currently receiving Pulmocare at rate of 15ml/hr with 25ml free water flushes q4h. Would recommend conservative increases of 10ml q12h as tolerated. Will continue to follow and reassess as pt needs, intake, and status change. Meek Joseph, MS RD LD [phone] (cell)
[2020-05-26 19:05] VITALS: BP 143/77
[2020-05-26] MEDS: SIMvastatin 20 MG (ZOCOR) TAB PO SCH (21:00)
[2020-05-26 21:48] VITALS: BP 150/78
[2020-05-27] MEDS: MIDAZOLAM DRIP PRE-MIX 100 ML IV SCH (00:32)
[2020-05-27] MEDS: PROPOFOL DRIP (ICU) 100 ML IV SCH ×2 (00:33→17:36)
[2020-05-27] MEDS: inSUlin ASPART (NovoLOG) 1 UNIT/0.01 ML (CHARGE PER UNIT) SQ SCH ×4 (00:51→17:36)
[2020-05-27 01:42] VITALS: BP 141/71
[2020-05-27] MEDS: D5 1/2 NS 1000 ML IV SOLUTION 1,000 ML IV PRN ×3 (02:05→17:36)
[2020-05-27] MEDS: DexMEDEtomidine PRE MIX 100 ML IV SCH ×5 (02:07→21:12)
[2020-05-27 03:15] LABS: BASOPHILS % (AUTO) 0 % (0-10); EOSINOPHILS # (AUTO) 0.2 10^3/uL (0.0-0.3); EOSINOPHILS % (AUTO) 3 % (0-10); HEMATOCRIT 34 % (40-54); HEMOGLOBIN 11.2 g/dL (13.3-17.7); LYMPHOCYTES # (AUTO) 1.3 10^3/uL (1.0-4.0); LYMPHOCYTES % (AUTO) 19 % (12-44); MEAN CORPUSCULAR HEMOGLOBIN 33 pg (25-34); MEAN CORPUSCULAR HGB CONC 33 g/dL (32-36); MEAN CORPUSCULAR VOLUME 99 fL (80-99); MEAN PLATELET VOLUME 10.5 fL (9.0-12.2); MONOCYTES # (AUTO) 0.8 10^3/uL (0.0-1.0); MONOCYTES % (AUTO) 12 % (0-12); NEUTROPHILS # (AUTO) 4.4 10^3/uL (1.8-7.8); NEUTROPHILS % (AUTO) 66 % (42-75); PLATELET COUNT 264 10^3/uL (130-400); WHITE BLOOD COUNT 6.8 10^3/uL (4.3-11.0)
[2020-05-27 03:38] LABS: CHLORIDE 109 MMOL/L (98-107); POTASSIUM 3.6 MMOL/L (3.6-5.0); SODIUM 138 MMOL/L (135-145)
[2020-05-27 03:40] LABS: CALCIUM 7.8 MG/DL (8.5-10.1); GLUCOSE 122 MG/DL (70-105)
[2020-05-27 03:41] LABS: TRIGLYCERIDES 452 MG/DL (<150)
[2020-05-27 03:42] LABS: CARBON DIOXIDE 20 MMOL/L (21-32)
[2020-05-27 03:44] LABS: CREATININE SERUM 0.86 MG/DL (0.60-1.30); GFR ESTIMATED > 60; PHOSPHORUS 2.8 MG/DL (2.3-4.7)
[2020-05-27 03:45] LABS: BUN/CREATININE RATIO 8
[2020-05-27 03:47] LABS: MAGNESIUM 1.4 MG/DL (1.6-2.4)
[2020-05-27 05:38] LABS: ABG BASE EXCESS -2.1 MMOL/L (-2.5-2.5); ABG OXYGEN SATURATION 96 % (94-100); ABG PCO2 38 MMHG (35-45); ABG PH 7.39 (7.37-7.43); ABG PO2 79 MMHG (79-93); ABG TCO2 23.3 MMOL/L (21.0-31.0)
[2020-05-27 05:40] LABS: ALLENS TEST POSITIVE; INSPIRED O2 40; PATIENT TEMP 37; VENTILATOR YES
[2020-05-27] MEDS: MAGNESIUM 1 GM/100 ML IVPB 100 ML IV SCH ×3 (05:50→07:04)
[2020-05-27] MEDS: POTASSIUM CL 10MEQ/50ML IVPB 50 ML IV SCH ×4 (05:50→07:05)
[2020-05-27] MEDS: KCL 20 MEQ TAB (K-DUR) PO SCH (05:51)
--- NOTE | 2020-05-27 07:04 | Diagnostic Imaging Report ---
Indication: Respiratory failure Portable chest 3:15 AM There is ET tube projects over the trachea. NG tube enters the stomach. Right extremity PICC line tip projects over the SVC. There is right basilar atelectasis. There are no effusions or pneumothoraces. IMPRESSION: Improved aeration of the lungs compared to the previous day with some residual right basilar atelectasis. Dictated by: Dictated on workstation # [id number]
[2020-05-27 07:34] VITALS: BP 144/73
--- NOTE | 2020-05-27 08:02 | Physical Therapy Progress Note ---
Therapy Progress Note Patient remains sedated and intubated. Will continue to monitor. DIXON ANSARI PT May 27, 2020 08:02
[2020-05-27] MEDS: amLODIPine 10 MG (NORVASC) TAB PO SCH (08:40)
[2020-05-27] MEDS: CLOPIDOGREL 75 MG (PLAVIX) TABLET PO SCH (08:40)
[2020-05-27] MEDS: PANTOPRAZOLE 40 MG (PROTONIX) VIAL IV SCH (08:40)
[2020-05-27] MEDS: ENOXAPARIN 40 MG/0.4 ML (LOVENOX) SYR SC SCH (08:40)
[2020-05-27] MEDS: FLUoxetine HCL 20 MG (PROzac) CAP PO SCH (08:40)
[2020-05-27] MEDS: lisINopril 40 MG (PRINIVIL) TABLET PO SCH (08:40)
[2020-05-27] MEDS: NS IV SCH ×3 (08:41)
[2020-05-27] MEDS: THIAMINE 100 MG IV SCH ×3 (08:41)
[2020-05-27] MEDS: FOLIC ACID IV SCH ×3 (08:41)
[2020-05-27] MEDS: LEVETIRACETAM 1,000 MG/NS 100 ML IVPB IV SCH ×4 (08:41→21:28)
[2020-05-27] MEDS: cefTRIAXone FOR IV USE 1,000 MG in WATER (STERILE) FOR INJECTION 10 ML IV SCH (08:49)
[2020-05-27 10:17] VITALS: BP 141/76
--- NOTE | 2020-05-27 11:20 | Physical Therapy Progress Note ---
Therapy Progress Note PROM B U/LE available ranges. Heel protectors, SCD and wrist restraints in place post care. PUMA ADAMES PT May 27, 2020 11:20
--- NOTE | 2020-05-27 14:20 | NUR ---
Pt awake and following commands at this time. Pt placed on SBT of 04/07. Pt RR increased to 39, TV 200-300, O2 saturation remained 93% for 10mins on SBT. [facility] RT notified of pt's status. Pt placed back on AC mode after speaking with RT at this time. Sedation placed back on pt for pt to be more comfortable at this time. Will continue to monitor.
--- NOTE | 2020-05-27 14:32 | NUR ---
During care rounds, it was noted that overnight pt was receiving Pulmocare at rate of 25ml/hr, but had high residuals and it was decreased to 15ml/hr with 25ml water flushes q4h. Would recommend maintain at this time, and attempt to increase 10ml on 05/28. Will continue to follow and reassess as pt needs, intake, and status change. Meek Josehp, MS RD LD [phone] cell
[2020-05-27 14:37] VITALS: BP 148/90
--- NOTE | 2020-05-27 15:49 | Progress Note - Hospitalist ---
Subjective HPI/CC On Admission Date Seen by Provider: May 27, 2020 Time Seen by Provider: 09:55 Pt is a 70yoCM with a PMH of alcohol abuse, HTN, HLD who presented to the ER due to altered mental status. He is currently intubated and sedated and ROS and HPI are limited by that. All history obtained from the records. He was admitted roughly one year about and reported that he drinks at least 6-8 beers per day. Per the ER note he has not drank in over 24 hours but I'm unsure of his exact timing for last drink. He was found to be extremely hypomagnesemic and was admitted to the ICU. Overnight he became more lethargic and unable to participate in care. He was no longer able to protect his airway and he was intubated this morning. Subjective/Events-last exam He is intubated and sedated. He is responsive and appears to be following commands. Objective Exam Vital Signs Vital Signs Date Time Temp Pulse Resp B/P (MAP) Pulse Ox O2 Delivery O2 Flow Rate FiO2 05/27/20 14:37 71 26 85 35 05/27/20 12:00 37.0 05/27/20 11:27 Mechanical Ventilator 35.00 05/27/20 06:45 Capillary Refill : Less Than 3 Seconds General Appearance: No Apparent Distress, WD/WN, Other (intubated and sedated) Respiratory: Lungs Clear, Normal Breath Sounds, No Respiratory Distress, Other (intubated and mechanically ventilated) Cardiovascular: Regular Rate, Rhythm, No Edema, No Murmur Gastrointestinal: Normal Bowel Sounds, Soft Extremity: Normal Inspection, No Pedal Edema Neurologic/Psychiatric: Other (sedated) Skin: Normal Color, Warm/Dry Results/Procedures Lab Laboratory Tests 05/27/20 02:54 Patient resulted labs reviewed. Imaging: Reviewed Imaging Report Assessment/Plan Assessment and Plan Assess & Plan/Chief Complaint Alcohol withdrawal Endotracheally intubated Remains intubated and sedated, minimal vent settings, extubate when able eICU managing ventilator, appreciate assistacne Replace electrolytes per protocol Food Preparation Kitchen Aide consult when awake Continue vitamin replacement Continue tube feeds HTN BP well controlled currently, trend CAD Continue home plavix DVT ppx: Lovenox Hypomagnesemia, resolved Hypokalemia, resolved Diagnosis/Problems Diagnosis/Problems (1) Alcohol withdrawal Status: Acute Qualifiers: Complication of substance-induced condition: with unspecified complication Qualified Codes: F10.239 - Alcohol dependence with withdrawal, unspecified (2) Endotracheally intubated Status: Acute Clinical Quality Measures DVT/VTE Risk/Contraindication: Risk Factor Score Per Nursin RFS Level Per Nursing on Admit: 4+=Very High ARTURO AGGARWAL MD May 27, 2020 15:49
[2020-05-27 18:01] VITALS: BP 174/101
[2020-05-27 21:28] VITALS: BP 162/81
[2020-05-27] MEDS: SIMvastatin 20 MG (ZOCOR) TAB PO SCH (21:29)
[2020-05-28] MEDS: inSUlin ASPART (NovoLOG) 1 UNIT/0.01 ML (CHARGE PER UNIT) SQ SCH ×4 (00:02→18:16)
[2020-05-28] MEDS: D5 1/2 NS 1000 ML IV SOLUTION 1,000 ML IV PRN ×3 (01:24→16:41)
[2020-05-28] MEDS: DexMEDEtomidine PRE MIX 100 ML IV SCH ×4 (01:26→20:03)
[2020-05-28 02:10] VITALS: BP 162/79
[2020-05-28 03:33] LABS: BASOPHILS % (AUTO) 0 % (0-10); EOSINOPHILS # (AUTO) 0.3 10^3/uL (0.0-0.3); EOSINOPHILS % (AUTO) 4 % (0-10); HEMATOCRIT 34 % (40-54); HEMOGLOBIN 10.8 g/dL (13.3-17.7); LYMPHOCYTES # (AUTO) 1.3 10^3/uL (1.0-4.0); LYMPHOCYTES % (AUTO) 20 % (12-44); MEAN CORPUSCULAR HEMOGLOBIN 32 pg (25-34); MEAN CORPUSCULAR HGB CONC 32 g/dL (32-36); MEAN CORPUSCULAR VOLUME 101 fL (80-99); MEAN PLATELET VOLUME 10.5 fL (9.0-12.2); MONOCYTES # (AUTO) 0.8 10^3/uL (0.0-1.0); MONOCYTES % (AUTO) 12 % (0-12); NEUTROPHILS # (AUTO) 4.2 10^3/uL (1.8-7.8); NEUTROPHILS % (AUTO) 64 % (42-75); PLATELET COUNT 194 10^3/uL (130-400); WHITE BLOOD COUNT 6.6 10^3/uL (4.3-11.0)
[2020-05-28 03:47] LABS: CHLORIDE 110 MMOL/L (98-107); POTASSIUM 3.7 MMOL/L (3.6-5.0); SODIUM 139 MMOL/L (135-145)
[2020-05-28 03:48] LABS: CALCIUM 7.4 MG/DL (8.5-10.1)
[2020-05-28 03:49] LABS: GLUCOSE 124 MG/DL (70-105)
[2020-05-28 03:50] LABS: CARBON DIOXIDE 19 MMOL/L (21-32)
[2020-05-28 03:52] LABS: PHOSPHORUS 2.5 MG/DL (2.3-4.7)
[2020-05-28 03:53] LABS: CREATININE SERUM 0.68 MG/DL (0.60-1.30); GFR ESTIMATED > 60
[2020-05-28 03:54] LABS: BUN/CREATININE RATIO 9
[2020-05-28 03:55] LABS: MAGNESIUM 1.5 MG/DL (1.6-2.4)
[2020-05-28 04:37] LABS: ABG BASE EXCESS -1.1 MMOL/L (-2.5-2.5); ABG OXYGEN SATURATION 98 % (94-100); ABG PCO2 37 MMHG (35-45); ABG PH 7.41 (7.37-7.43); ABG PO2 99 MMHG (79-93); ABG TCO2 24.4 MMOL/L (21.0-31.0); ALLENS TEST NEGATIVE; INSPIRED O2 45; PATIENT TEMP 36.9; VENTILATOR YES
[2020-05-28] MEDS: POTASSIUM CL 10MEQ/50ML IVPB 50 ML IV SCH (04:39)
[2020-05-28] MEDS: MAGNESIUM 1 GM/100 ML IVPB 100 ML IV SCH ×3 (04:39→05:48)
[2020-05-28] MEDS: KCL 20 MEQ TAB (K-DUR) PO SCH (04:40)
[2020-05-28] MEDS: MIDAZOLAM DRIP PRE-MIX 100 ML IV SCH ×2 (05:48→15:12)
[2020-05-28 07:14] VITALS: BP 136/71
--- NOTE | 2020-05-28 08:04 | Physical Therapy Progress Note ---
Therapy Progress Note Patient continues to be intubated and sedated, will continue to monitor and start when appropriate. RIZWAN PHIPPS PT May 28, 2020 08:04
[2020-05-28] MEDS: FLUoxetine HCL 20 MG (PROzac) CAP PO SCH (08:18)
[2020-05-28] MEDS: PANTOPRAZOLE 40 MG (PROTONIX) VIAL IV SCH (08:18)
[2020-05-28] MEDS: amLODIPine 10 MG (NORVASC) TAB PO SCH (08:18)
[2020-05-28] MEDS: lisINopril 40 MG (PRINIVIL) TABLET PO SCH (08:18)
[2020-05-28] MEDS: ENOXAPARIN 40 MG/0.4 ML (LOVENOX) SYR SC SCH (08:18)
[2020-05-28] MEDS: CLOPIDOGREL 75 MG (PLAVIX) TABLET PO SCH (08:18)
[2020-05-28] MEDS: LEVETIRACETAM 1,000 MG/NS 100 ML IVPB IV SCH ×4 (08:19→20:46)
[2020-05-28] MEDS: PROPOFOL DRIP (ICU) 100 ML IV SCH ×2 (08:51→19:41)
[2020-05-28] MEDS: NS IV SCH ×3 (10:12)
[2020-05-28] MEDS: FOLIC ACID IV SCH ×3 (10:12)
[2020-05-28] MEDS: THIAMINE 100 MG IV SCH ×3 (10:12)
[2020-05-28 11:32] VITALS: BP 125/68
--- NOTE | 2020-05-28 13:53 | NUR ---
Note pt is currently receiving Pulmocare at 30ml/hr with flushes of 25ml water q4h. Would recommend conservative increases of 10ml q12 as tolerated, toward goal rate of 55ml/hr. Will continue to follow and reassess as pt needs, intake, and status change. Meek Joseph, MS RD LD [phone] cell
[2020-05-28 14:01] VITALS: BP 137/70
--- NOTE | 2020-05-28 14:44 | Progress Note - Hospitalist ---
Subjective HPI/CC On Admission Date Seen by Provider: May 28, 2020 Time Seen by Provider: 09:30 Pt is a 70yoCM with a PMH of alcohol abuse, HTN, HLD who presented to the ER due to altered mental status. He is currently intubated and sedated and ROS and HPI are limited by that. All history obtained from the records. He was admitted roughly one year about and reported that he drinks at least 6-8 beers per day. Per the ER note he has not drank in over 24 hours but I'm unsure of his exact timing for last drink. He was found to be extremely hypomagnesemic and was admitted to the ICU. Overnight he became more lethargic and unable to participate in care. He was no longer able to protect his airway and he was intubated this morning. Subjective/Events-last exam He remains intubated and sedated. Objective Exam Vital Signs Vital Signs Date Time Temp Pulse Resp B/P (MAP) Pulse Ox O2 Delivery O2 Flow Rate FiO2 05/28/20 14:01 52 24 94 30 05/28/20 11:58 37.4 05/28/20 10:18 93/53 Mechanical Ventilator 30.00 Capillary Refill : Less Than 3 Seconds General Appearance: No Apparent Distress, Other (and intubated and sedated) Respiratory: Lungs Clear, Normal Breath Sounds, No Respiratory Distress Cardiovascular: No Edema, No Murmur, Bradycardia (regular rhythm) Gastrointestinal: Normal Bowel Sounds, Soft Extremity: Normal Inspection, No Pedal Edema Neurologic/Psychiatric: Other (sedated) Skin: Normal Color, Warm/Dry Results/Procedures Lab Laboratory Tests 05/28/20 03:27 Patient resulted labs reviewed. Imaging: Reviewed Imaging Report Assessment/Plan Assessment and Plan Assess & Plan/Chief Complaint Alcohol withdrawal Endotracheally intubated Remains intubated and sedated, minimal vent settings, extubate when able eICU managing ventilator, appreciate assistance Replace electrolytes per protocol Beet End Supervisor consult when awake Continue vitamin replacement Continue tube feeds HTN BP well controlled currently, trend CAD Continue home plavix DVT ppx: Lovenox Hypomagnesemia, resolved Hypokalemia, resolved Diagnosis/Problems Diagnosis/Problems (1) Alcohol withdrawal Status: Acute Qualifiers: Complication of substance-induced condition: with unspecified complication Qualified Codes: F10.239 - Alcohol dependence with withdrawal, unspecified (2) Endotracheally intubated Status: Acute Clinical Quality Measures DVT/VTE Risk/Contraindication: Risk Factor Score Per Nursin RFS Level Per Nursing on Admit: 4+=Very High ARTURO AGGARWAL MD May 28, 2020 14:44
--- NOTE | 2020-05-28 15:36 | Physical Therapy Progress Note ---
Therapy Progress Note PROM B U/LE in available range. PUMA ADAMES PT May 28, 2020 15:36
[2020-05-28 18:46] VITALS: BP 140/72
[2020-05-28] MEDS: SIMvastatin 20 MG (ZOCOR) TAB PO SCH (20:46)
[2020-05-28 21:09] VITALS: BP 152/75
[2020-05-29] VITALS (7 sets, daily range): BP systolic 126–159; BP diastolic 67–77
[2020-05-29] MEDS: D5 1/2 NS 1000 ML IV SOLUTION 1,000 ML IV PRN ×2 (00:28→10:17)
[2020-05-29] MEDS: DexMEDEtomidine PRE MIX 100 ML IV SCH ×3 (00:28→19:25)
[2020-05-29] MEDS: inSUlin ASPART (NovoLOG) 1 UNIT/0.01 ML (CHARGE PER UNIT) SQ SCH ×5 (00:30→23:42)
[2020-05-29] MEDS: MAGNESIUM 1 GM/100 ML IVPB 100 ML IV SCH (06:57)
[2020-05-29] MEDS: POTASSIUM CL 10MEQ/50ML IVPB 50 ML IV SCH (06:57)
[2020-05-29] MEDS: KCL 20 MEQ TAB (K-DUR) PO SCH (06:58)
--- NOTE | 2020-05-29 07:08 | Physical Therapy Progress Note ---
Therapy Progress Note Patient remains sedated and on vent. Will continue to monitor. DIXON ANSARI PT May 29, 2020 07:08
[2020-05-29] MEDS: LEVETIRACETAM 1,000 MG/NS 100 ML IVPB IV SCH ×4 (07:54→19:48)
[2020-05-29] MEDS: PANTOPRAZOLE 40 MG (PROTONIX) VIAL IV SCH (07:56)
[2020-05-29 07:57] LABS: ABG BASE EXCESS -0.9 MMOL/L (-2.5-2.5); ABG OXYGEN SATURATION 98 % (94-100); ABG PCO2 41 MMHG (35-45); ABG PH 7.38 (7.37-7.43); ABG PO2 106 MMHG (79-93); ABG TCO2 24.8 MMOL/L (21.0-31.0)
[2020-05-29] MEDS: lisINopril 40 MG (PRINIVIL) TABLET PO SCH (07:57)
[2020-05-29] MEDS: CLOPIDOGREL 75 MG (PLAVIX) TABLET PO SCH (07:57)
[2020-05-29] MEDS: FLUoxetine HCL 20 MG (PROzac) CAP PO SCH (07:57)
[2020-05-29] MEDS: ENOXAPARIN 40 MG/0.4 ML (LOVENOX) SYR SC SCH (07:57)
[2020-05-29] MEDS: amLODIPine 10 MG (NORVASC) TAB PO SCH (07:57)
[2020-05-29 07:59] LABS: ALLENS TEST POSITIVE; INSPIRED O2 70%; PATIENT TEMP 36.6; VENTILATOR YES
[2020-05-29] MEDS: NS IV SCH ×3 (08:16)
[2020-05-29] MEDS: FOLIC ACID IV SCH ×3 (08:16)
[2020-05-29] MEDS: THIAMINE 100 MG IV SCH ×3 (08:16)
[2020-05-29] MEDS: PROPOFOL DRIP (ICU) 100 ML IV SCH ×3 (08:17→19:25)
--- NOTE | 2020-05-29 08:41 | Diagnostic Imaging Report ---
Indication: Dyspnea and hypoxia. Comparison: 05/27/2020. Discussion: Single portable upright view of the chest was obtained. Atelectasis again noted within the right lung base, stable. No new consolidation. No pleural fluid or pneumothorax. Endotracheal tube, enteric tube, and right upper extremity PICC line are stable. Left shoulder prosthesis is incompletely viewed. Normal heart size. No osseous abnormality. Impression: 1. Stable chest. Dictated by: Dictated on workstation # [id number]
--- NOTE | 2020-05-29 11:10 | Progress Note ---
Subjective Date Seen by a Provider: May 29, 2020 Time Seen by a Provider: 11:05 Subjective/Events-last exam Fwup acute respiratory failure, acute alcohol withdrawal, severe hypomagnesemia, hypokalemia, hypertension, history of CAD. Still sedated on ventilator. Weaning attempts have been unsuccessful. Objective Exam Vital Signs Date Time Temp Pulse Resp B/P (MAP) Pulse Ox O2 Delivery O2 Flow Rate FiO2 05/29/20 10:12 50 05/29/20 10:00 50 24 124/67 96 Mechanical Ventilator 70.00 05/29/20 09:00 48 24 110/61 96 Mechanical Ventilator 70.00 05/29/20 09:00 93 Mechanical Ventilator 30 05/29/20 08:17 47 132/67 05/29/20 08:00 48 24 132/67 97 Mechanical Ventilator 70.00 05/29/20 08:00 36.6 05/29/20 07:45 49 24 96 70 05/29/20 07:00 47 05/29/20 07:00 48 24 127/71 94 Mechanical Ventilator 70.00 05/29/20 06:00 51 24 126/68 91 Mechanical Ventilator 70.00 05/29/20 05:20 Mechanical Ventilator 70.00 05/29/20 05:14 53 24 89 50 05/29/20 05:00 54 20 129/72 91 Mechanical Ventilator 30.00 05/29/20 04:00 47 23 129/65 91 Mechanical Ventilator 30.00 05/29/20 03:00 45 24 151/72 93 Mechanical Ventilator 30.00 05/29/20 02:00 46 25 151/73 96 Mechanical Ventilator 30.00 05/29/20 01:55 46 24 96 25 05/29/20 01:00 50 05/29/20 01:00 47 23 158/76 96 Mechanical Ventilator 30.00 05/29/20 00:28 47 05/29/20 00:00 47 30 160/76 96 Mechanical Ventilator 30.00 05/28/20 23:00 48 23 153/72 95 Mechanical Ventilator 30.00 05/28/20 22:00 49 24 156/74 95 Mechanical Ventilator 30.00 05/28/20 21:09 49 24 95 30 05/28/20 21:00 93 Mechanical Ventilator 30 05/28/20 21:00 50 24 155/76 95 Mechanical Ventilator 30.00 05/28/20 20:03 36.8 50 24 95 05/28/20 20:00 50 24 151/74 95 Mechanical Ventilator 30.00 05/28/20 19:41 50 154/75 05/28/20 19:00 51 24 153/76 93 Mechanical Ventilator 30.00 05/28/20 19:00 51 05/28/20 18:46 52 24 93 30 05/28/20 18:00 61 31 136/69 92 Mechanical Ventilator 30.00 05/28/20 17:00 104 36 158/85 93 Mechanical Ventilator 30.00 05/28/20 16:53 37.0 05/28/20 16:00 75 24 143/72 93 Mechanical Ventilator 30.00 05/28/20 15:12 56 121/64 05/28/20 15:12 56 05/28/20 15:00 54 23 121/64 93 Mechanical Ventilator 30.00 05/28/20 14:01 52 24 94 30 05/28/20 14:00 56 16 137/70 94 Mechanical Ventilator 30.00 05/28/20 13:00 56 22 137/71 93 Mechanical Ventilator 30.00 05/28/20 12:47 54 05/28/20 12:00 52 16 133/69 94 Mechanical Ventilator 30.00 05/28/20 11:58 37.4 05/28/20 11:32 53 24 93 30 I & O 05/29/20 07:00 Intake Total 2750 ml Output Total 3950 ml Balance -1200 ml Capillary Refill : Less Than 3 Seconds General Appearance: Other (sedated on ventilator) Respiratory: Lungs Clear Cardiovascular: Bradycardia Gastrointestinal: soft, abnormal bowel sounds Extremity: Non Tender, No Calf Tenderness, No Pedal Edema Neurologic/Psychiatric: Other (sedated on ventilator) Results Lab Laboratory Tests 05/28/20 11:55: Glucometer 115H 05/28/20 18:13: Glucometer 117H 05/29/20 00:00: Glucometer 115H 05/29/20 07:49: Blood Gas Puncture Site LEFT RADIAL, Blood Gas Patient Temperature 36.6, Arterial Blood pH 7.38, Arterial Blood Partial Pressure CO2 41, Arterial Blood Partial Pressure O2 106H, Arterial Blood HCO3 24, Arterial Blood Total CO2 24.8, Arterial Blood Oxygen Saturation 98, Arterial Blood Base Excess -0.9, Kory Test POSITIVE, Blood Gas Ventilator Setting YES, Blood Gas Inspired Oxygen 70% Microbiology 05/23/20 Urine Culture - Final, Complete NO GROWTH 05/21/20 Gram Stain - Final, Complete 05/21/20 Sputum Culture - Final, Complete Usual upper respiratory ursula Assessment/Plan Assessment/Plan Assess & Plan/Chief Complaint 1. Acute Respiratory Failure--continues to require mechanical ventilation with unsuccessful weaning attempts, need to consider LTAC, on lovenox for DVT prophylaxis, eICU managing vent 2. Acute Alcohol Withdrawal--continue vitamin replacement, on tube feedings 3. Severe Hypomagnesemia--on magnesium replacement protocol 4. Hypokalemia--improved, on replacement 5. Hypertension--back on home meds 6. History of CAD--on plavix Clinical Quality Measures DVT/VTE Risk/Contraindication: Risk Factor Score Per Nursin RFS Level Per Nursing on Admit: 4+=Very High LOUIS COOPER DO May 29, 2020 11:10
[2020-05-29] MEDS: MIDAZOLAM DRIP PRE-MIX 100 ML IV SCH (13:44)
[2020-05-29] MEDS: SIMvastatin 20 MG (ZOCOR) TAB PO SCH (19:48)
[2020-05-30] MEDS: PROPOFOL DRIP (ICU) 100 ML IV SCH ×3 (00:33→14:14)
[2020-05-30] MEDS: D5 1/2 NS 1000 ML IV SOLUTION 1,000 ML IV PRN (00:33)
[2020-05-30 02:05] VITALS: BP 148/70
[2020-05-30 03:22] LABS: ABG BASE EXCESS -0.9 MMOL/L (-2.5-2.5); ABG OXYGEN SATURATION 94 % (94-100); ABG PCO2 41 MMHG (35-45); ABG PH 7.38 (7.37-7.43); ABG PO2 70 MMHG (79-93); ABG TCO2 25.2 MMOL/L (21.0-31.0)
[2020-05-30 03:40] LABS: ALLENS TEST POSITIVE; INSPIRED O2 70; VENTILATOR YES
[2020-05-30 03:41] LABS: PATIENT TEMP 35.8
[2020-05-30 04:39] LABS: BASOPHILS % (AUTO) 0 % (0-10); EOSINOPHILS # (AUTO) 0.3 10^3/uL (0.0-0.3); EOSINOPHILS % (AUTO) 4 % (0-10); HEMATOCRIT 36 % (40-54); HEMOGLOBIN 11.4 g/dL (13.3-17.7); LYMPHOCYTES # (AUTO) 1.2 10^3/uL (1.0-4.0); LYMPHOCYTES % (AUTO) 17 % (12-44); MEAN CORPUSCULAR HEMOGLOBIN 32 pg (25-34); MEAN CORPUSCULAR HGB CONC 32 g/dL (32-36); MEAN CORPUSCULAR VOLUME 99 fL (80-99); MEAN PLATELET VOLUME 10.1 fL (9.0-12.2); MONOCYTES # (AUTO) 0.6 10^3/uL (0.0-1.0); MONOCYTES % (AUTO) 9 % (0-12); NEUTROPHILS # (AUTO) 4.7 10^3/uL (1.8-7.8); NEUTROPHILS % (AUTO) 69 % (42-75); PLATELET COUNT 300 10^3/uL (130-400); WHITE BLOOD COUNT 6.7 10^3/uL (4.3-11.0)
[2020-05-30 04:54] LABS: CHLORIDE 109 MMOL/L (98-107); POTASSIUM 3.8 MMOL/L (3.6-5.0); SODIUM 140 MMOL/L (135-145)
[2020-05-30 04:56] LABS: GLUCOSE 119 MG/DL (70-105)
[2020-05-30 04:57] LABS: CARBON DIOXIDE 21 MMOL/L (21-32)
[2020-05-30 04:59] LABS: PHOSPHORUS 3.2 MG/DL (2.3-4.7)
[2020-05-30 05:00] LABS: GFR ESTIMATED > 60
[2020-05-30 05:01] LABS: BUN/CREATININE RATIO 11
[2020-05-30 05:02] LABS: MAGNESIUM 1.7 MG/DL (1.6-2.4)
[2020-05-30] MEDS: KCL 20 MEQ TAB (K-DUR) PO SCH (05:12)
[2020-05-30] MEDS: POTASSIUM CL 10MEQ/50ML IVPB 50 ML IV SCH (05:12)
[2020-05-30] MEDS: MAGNESIUM 1 GM/100 ML IVPB 100 ML IV SCH ×3 (05:12→06:35)
[2020-05-30] MEDS: inSUlin ASPART (NovoLOG) 1 UNIT/0.01 ML (CHARGE PER UNIT) SQ SCH ×2 (05:13→12:18)
[2020-05-30 07:02] VITALS: BP 136/76
[2020-05-30] MEDS: DexMEDEtomidine PRE MIX 100 ML IV SCH (07:39)
--- NOTE | 2020-05-30 07:56 | Diagnostic Imaging Report ---
INDICATION: Respiratory failure 0707 hours Single AP view of the chest is obtained with comparison made to study of 05/29/2020. Endotracheal tube and nasogastric tube remain in stable position. There is also right upper extremity PICC with catheter tip reaching the mid superior vena cava. There may be mild increase in basilar atelectasis bilaterally. There is blunting of costophrenic sulci, greater on the right. No pneumothorax is seen. IMPRESSION: Increasing basilar atelectasis and/or pneumonitis with probable mild pleural fluid, greater on the right. Dictated by: Dictated on workstation # [id number]
[2020-05-30] MEDS: FLUoxetine HCL 20 MG (PROzac) CAP PO SCH (09:17)
[2020-05-30] MEDS: lisINopril 40 MG (PRINIVIL) TABLET PO SCH (09:17)
[2020-05-30] MEDS: PANTOPRAZOLE 40 MG (PROTONIX) VIAL IV SCH (09:17)
[2020-05-30] MEDS: amLODIPine 10 MG (NORVASC) TAB PO SCH (09:17)
[2020-05-30] MEDS: ENOXAPARIN 40 MG/0.4 ML (LOVENOX) SYR SC SCH (09:17)
[2020-05-30] MEDS: CLOPIDOGREL 75 MG (PLAVIX) TABLET PO SCH (09:17)
[2020-05-30] MEDS: MIDAZOLAM DRIP PRE-MIX 100 ML IV SCH (09:18)
[2020-05-30] MEDS: LEVETIRACETAM 1,000 MG/NS 100 ML IVPB IV SCH ×2 (10:11)
[2020-05-30] MEDS: NS IV SCH ×3 (10:11)
[2020-05-30] MEDS: THIAMINE 100 MG IV SCH ×3 (10:11)
[2020-05-30] MEDS: FOLIC ACID IV SCH ×3 (10:11)
[2020-05-30 10:34] VITALS: BP 118/66
--- NOTE | 2020-05-30 10:47 | NUR ---
Note pt is currently receiving Pulmocare at rate of 55ml/hr with 25ml free water flushes, q4h. Note TF is at goal rate at this time. Would recommend maintain current rate as tolerated. Will continue to follow and reassess as pt needs, intake, and status change. Meek Joseph, MS RD LD [phone] cell
--- NOTE | 2020-05-30 10:57 | Physical Therapy Progress Note ---
Therapy Progress Note Pt remains sedated and on the ventilator. We will return tomorrow to see if he is ready for PT. OBI MOORE PT May 30, 2020 10:57
--- NOTE | 2020-05-30 11:06 | Progress Note ---
Subjective Date Seen by a Provider: May 30, 2020 Time Seen by a Provider: 11:03 Subjective/Events-last exam Fwup acute respiratory failure, acute alcohol withdrawal, severe hypomagnesemia, hypokalemia, hypertension, history of CAD. Still sedated on ventilator. Weaning attempts have been unsuccessful. Objective Exam Vital Signs Date Time Temp Pulse Resp B/P (MAP) Pulse Ox O2 Delivery O2 Flow Rate FiO2 05/30/20 10:39 Mechanical Ventilator 50.00 05/30/20 10:34 70 24 100 60 05/30/20 09:18 119/64 05/30/20 09:00 91 Mechanical Ventilator 70 05/30/20 08:00 36.4 05/30/20 07:39 130/71 05/30/20 07:38 130/70 05/30/20 07:30 Mechanical Ventilator 68.00 05/30/20 07:02 72 24 92 68 05/30/20 06:48 81 05/30/20 06:00 80 24 154/81 99 Mechanical Ventilator 65.00 05/30/20 05:26 Mechanical Ventilator 65.00 05/30/20 05:24 35.8 05/30/20 05:00 49 24 161/78 100 Mechanical Ventilator 70.00 05/30/20 04:00 48 24 126/70 97 Mechanical Ventilator 70.00 05/30/20 03:00 50 24 115/62 92 Mechanical Ventilator 70.00 05/30/20 02:05 45 24 92 70 05/30/20 02:00 45 23 139/72 92 Mechanical Ventilator 70.00 05/30/20 01:00 50 05/30/20 01:00 47 24 137/68 93 Mechanical Ventilator 70.00 05/30/20 00:35 35.7 05/30/20 00:33 130/68 05/30/20 00:00 45 24 125/64 92 Mechanical Ventilator 70.00 05/29/20 23:00 44 23 147/72 92 Mechanical Ventilator 70.00 05/29/20 22:00 44 24 149/74 92 Mechanical Ventilator 70.00 05/29/20 21:26 46 24 94 60 05/29/20 21:00 46 23 158/77 92 Mechanical Ventilator 70.00 05/29/20 20:22 93 Mechanical Ventilator 70 05/29/20 19:43 36.1 50 23 132/66 92 Mechanical Ventilator 70.00 05/29/20 19:37 36.5 05/29/20 19:25 122/64 05/29/20 19:25 48 05/29/20 19:00 50 05/29/20 19:00 49 23 122/64 91 Mechanical Ventilator 60.00 05/29/20 18:39 46 24 89 60 05/29/20 18:00 47 24 137/68 93 Mechanical Ventilator 60.00 05/29/20 17:00 46 23 134/72 96 Mechanical Ventilator 60.00 05/29/20 16:50 36.4 05/29/20 16:00 46 24 141/73 94 Mechanical Ventilator 60.00 05/29/20 15:27 48 24 92 60 05/29/20 15:00 48 24 117/67 93 Mechanical Ventilator 70.00 05/29/20 14:00 55 23 133/71 93 Mechanical Ventilator 70.00 05/29/20 13:44 55 05/29/20 13:00 49 24 131/69 91 Mechanical Ventilator 70.00 05/29/20 12:52 48 05/29/20 12:19 49 128/66 05/29/20 12:00 36.4 05/29/20 12:00 48 24 128/66 94 Mechanical Ventilator 70.00 05/29/20 11:28 47 24 93 60 I & O 05/30/20 07:00 Intake Total 3621.2 ml Output Total 2225 ml Balance 1396.2 ml Capillary Refill : Less Than 3 Seconds General Appearance: Other (sedated on vent) Respiratory: Lungs Clear Cardiovascular: Regular Rate, Rhythm Gastrointestinal: normal bowel sounds, non tender, soft Extremity: Non Tender, No Calf Tenderness, No Pedal Edema Neurologic/Psychiatric: Alert, Oriented x3 Skin: Warm/Dry Results Lab Laboratory Tests 05/29/20 11:51: Glucometer 105 05/29/20 17:15: Glucometer 114H 05/29/20 23:42: Glucometer 98 05/30/20 03:09: Blood Gas Puncture Site LEFT RADIAL, Blood Gas Patient Temperature 35.8, Arterial Blood pH 7.38, Arterial Blood Partial Pressure CO2 41, Arterial Blood Partial Pressure O2 70L, Arterial Blood HCO3 24, Arterial Blood Total CO2 25.2, Arterial Blood Oxygen Saturation 94, Arterial Blood Base Excess -0.9, Kory Test POSITIVE, Blood Gas Ventilator Setting YES, Blood Gas Inspired Oxygen 70 05/30/20 04:20: White Blood Count 6.7, Red Blood Count 3.60L, Hemoglobin 11.4L, Hematocrit 36L, Mean Corpuscular Volume 99, Mean Corpuscular Hemoglobin 32, Mean Corpuscular Hemoglobin Concent 32, Red Cell Distribution Width 12.3, Platelet Count 300, Mean Platelet Volume 10.1, Immature Granulocyte % (Auto) 0, Neutrophils (%) (Auto) 69, Lymphocytes (%) (Auto) 17, Monocytes (%) (Auto) 9, Eosinophils (%) (Auto) 4, Basophils (%) (Auto) 0, Neutrophils # (Auto) 4.7, Lymphocytes # (Auto) 1.2, Monocytes # (Auto) 0.6, Eosinophils # (Auto) 0.3, Basophils # (Auto) 0.0, Immature Granulocyte # (Auto) 0.0, Sodium Level 140, Potassium Level 3.8, Chloride Level 109H, Carbon Dioxide Level 21, Anion Gap 10, Blood Urea Nitrogen 9, Creatinine 0.80, Estimat Glomerular Filtration Rate > 60, BUN/Creatinine Ratio 11, Glucose Level 119H, Calcium Level 8.0L, Phosphorus Level 3.2, Magnesium Level 1.7 Microbiology 05/23/20 Urine Culture - Final, Complete NO GROWTH 05/21/20 Gram Stain - Final, Complete 05/21/20 Sputum Culture - Final, Complete Usual upper respiratory ursula Assessment/Plan Assessment/Plan Assess & Plan/Chief Complaint 1. Acute Respiratory Failure--continues to require mechanical ventilation with unsuccessful weaning attempts, on lovenox for DVT prophylaxis, eICU managing vent, discussed with [facility] and patient is candidate but awaiting bed availability 2. Acute Alcohol Withdrawal--continue vitamin replacement, on tube feedings 3. Severe Hypomagnesemia--on magnesium replacement protocol 4. Hypokalemia--improved, on replacement 5. Hypertension--back on home meds 6. History of CAD--on plavix Clinical Quality Measures DVT/VTE Risk/Contraindication: Risk Factor Score Per Nursin RFS Level Per Nursing on Admit: 4+=Very High LOUIS COOPER DO May 30, 2020 11:06
--- NOTE | 2020-05-30 11:13 | NUR ---
CM/SS discharge planning. The physician reached out to [facility] for a referral. CM/SS spoke with [facility] and sent clinical. Awaiting acceptance/denial.
--- NOTE | 2020-05-30 13:34 | NUR ---
TERI/CIRO update. Plan: Patient will discharge to [facility] today 05/30. TERI/CIRO contacted [facility] to check on referral. He reports they will most likely be able to take the patient today if the physician is ready for discharge. TERI/CIRO contacted the patient's primary nurse to inform her of plans and that [facility] will be reaching out to her. She verbalized understanding.
--- NOTE | 2020-05-30 14:35 | NUR ---
THIS NURSE NOTIFIED DR COOPER PT HAS A BED A [facility] IF HE IS READY. DR COOPER SAID PT MAY GO. THIS NURSE GAVE DR ALLISON [place] NUMBER AND NOTIFIED HER [facility] JUST NEEDS DISCHARGE SUMMARY AND DISCHARGE MEDICATION LIST. THIS NURSE UPDATED THE DAUGHTER, ANGELIQUE, WHO GAVE CONSENT.
[2020-05-30 14:39] VITALS: BP 130/80
--- NOTE | 2020-05-30 15:22 | Discharge Summary ---
Discharge Summary Hospital Course Was the Problem List Reviewed?: Yes Problems/Dx: (1) Alcohol withdrawal Status: Acute Qualifiers: Qualified Codes: F10.239 - Alcohol dependence with withdrawal, unspecified (2) Endotracheally intubated Status: Acute Hospital Course Date of Admission: May 21, 2020 at 00:30 Admission Diagnosis : Family Physician/Provider: Irasema Upton MD Date of Discharge: 05/30/20 Discharge Diagnosis: 1. Acute Respiratory Failure--continues to require mechanical ventilation with unsuccessful weaning attempts, on lovenox for DVT prophylaxis, eICU managing vent, discussed with [facility] and patient is candidate and will transfer today [facility] 2. Chronic Alcohol abuse with Acute Alcohol Withdrawal--continue vitamin replacement, on tube feedings 3. Severe Hypomagnesemia--on magnesium replacement protocol 4. Hypokalemia--improved, on replacement 5. Hypertension--back on home meds 6. History of CAD--on plavix Hospital Course: This is a 70 year old male with a history of chronic alcohol abuse who was brought to the emergency room with altered mental status. He was found to be severely hypomagnesemic and in acute alcohol withdrawal. He was admitted to the ICU and was unable to protect his airway so he was intubated. His magnesium as well as potassium have been replaced via protocol. He was on alcohol withdrawal protocol as well as alcohol vitamin replacement and has been getting tube feedings. He was on lovenox for DVT prophylaxis. His vent has been managed by both pulmonology and eICU. His vent settings have been able to be decreased, however, weaning attempts have been unsuccessful. It was felt he would be a good candidate for [facility] for [facility] vent weaning. [facility] in [place], [place], was contacted and a bed was available and the patient did qualify. I discussed the plans with his daughter and she was in agreement. I also discussed the case with Dr. Bloom at [facility] and the patient has been accepted. He will be transferred via ambulance to [facility] and they will assume his care. Labs and Pending Lab Test: Laboratory Tests 05/29/20 17:15: Glucometer 114H 05/29/20 23:42: Glucometer 98 05/30/20 03:09: Blood Gas Puncture Site LEFT RADIAL, Blood Gas Patient Temperature 35.8, Arterial Blood pH 7.38, Arterial Blood Partial Pressure CO2 41, Arterial Blood Partial Pressure O2 70L, Arterial Blood HCO3 24, Arterial Blood Total CO2 25.2, Arterial Blood Oxygen Saturation 94, Arterial Blood Base Excess -0.9, Kory Test POSITIVE, Blood Gas Ventilator Setting YES, Blood Gas Inspired Oxygen 70 05/30/20 04:20: White Blood Count 6.7, Red Blood Count 3.60L, Hemoglobin 11.4L, Hematocrit 36L, Mean Corpuscular Volume 99, Mean Corpuscular Hemoglobin 32, Mean Corpuscular Hemoglobin Concent 32, Red Cell Distribution Width 12.3, Platelet Count 300, Mean Platelet Volume 10.1, Immature Granulocyte % (Auto) 0, Neutrophils (%) (A uto) 69, Lymphocytes (%) (Auto) 17, Monocytes (%) (Auto) 9, Eosinophils (%) (Auto) 4, Basophils (%) (Auto) 0, Neutrophils # (Auto) 4.7, Lymphocytes # (Auto) 1.2, Monocytes # (Auto) 0.6, Eosinophils # (Auto) 0.3, Basophils # (Auto) 0.0, Immature Granulocyte # (Auto) 0.0, Sodium Level 140, Potassium Level 3.8, Chloride Level 109H, Carbon Dioxide Level 21, Anion Gap 10, Blood Urea Nitrogen 9, Creatinine 0.80, Estimat Glomerular Filtration Rate > 60, BUN/Creatinine Ratio 11, Glucose Level 119H, Calcium Level 8.0L, Phosphorus Level 3.2, Magnesium Level 1.7 05/30/20 12:13: Glucometer 96 Microbiology 05/23/20 Urine Culture - Final, Complete NO GROWTH 05/21/20 Gram Stain - Final, Complete 05/21/20 Sputum Culture - Final, Complete Usual upper respiratory ursula Home Meds Active Reported Magnesium (Magnesium Oxide) 400 Mg Tablet 400 Mg PO DAILY Folic Acid 0.8 Mg Tablet 0.8 Mg PO DAILY Phospha 250 Neutral Tablet (Phosphate) 1 Ea Tablet 2 Ea PO DAILY Garlic Oil (Garlic) 1,000 Mg Capsule 1,000 Mg PO DAILY Plavix (Clopidogrel Bisulfate) 75 Mg Tablet 75 Mg PO DAILY Pravastatin Sodium 40 Mg Tablet 40 Mg PO DAILY Omeprazole 20 Mg Capsule.dr 20 Mg PO DAILY Lisinopril 20 Mg Tablet 40 Mg PO DAILY TAKES 2 (20MG) TABLETS Prozac (Fluoxetine HCl) 20 Mg Capsule 20 Mg PO DAILY Amlodipine Besylate 10 Mg Tablet 10 Mg PO DAILY Assessment/Pt Instructions 1. Acute Respiratory Failure--continues to require mechanical ventilation with unsuccessful weaning attempts, on lovenox for DVT prophylaxis, eICU managing vent, discussed with [facility] and patient is candidate and will transfer today--Dr. Bloom accepts, daughter has been notified 2. Chronic Alcohol Abuse with Acute Alcohol Withdrawal--continue vitamin replacement, on tube feedings 3. Severe Hypomagnesemia--improved, on magnesium replacement protocol 4. Hypokalemia--improved, on replacement 5. Hypertension--back on home meds 6. History of CAD--on plavix Discharge Planning: >30 minutes discharge planning Discharge Instructions Discharge Diet: Tube Feeding Discharge Physical Examination Vital Signs Vital Signs Date Time Temp Pulse Resp B/P (MAP) Pulse Ox O2 Delivery O2 Flow Rate FiO2 05/30/20 14:39 97 25 96 50 05/30/20 14:14 135/83 05/30/20 12:00 36.4 05/30/20 10:39 Mechanical Ventilator 50.00 General Appearance: Other (sedated on ventilator) Respiratory: Lungs Clear Cardiovascular: Regular Rate, Rhythm Gastrointestinal: Normal Bowel Sounds, Soft Extremity: No Pedal Edema Skin: Warm/Dry Neurologic/Psychiatric: Other (sedated on ventilator) Allergies: Coded Allergies: codeine (Verified Allergy, Unknown, nausea and vomiting, 05/20/20) hydrocodone (Verified Allergy, Unknown, nausea and vomiting, 05/20/20) Discharge Summary Date of Admission May 21, 2020 at 00:30 Date of Discharge Discharge Date: May 30, 2020 Admission Diagnosis Alcohol Withdrawal Discharge Diagnosis (1) Alcohol withdrawal Status: Acute Qualifiers: Qualified Codes: F10.239 - Alcohol dependence with withdrawal, unspecified (2) Endotracheally intubated Status: Acute Clinical Quality Measures DVT/VTE Risk/Contraindication: Risk Factor Score Per Nursin RFS Level Per Nursing on Admit: 4+=Very High LOUIS COOPER DO May 30, 2020 15:21
--- NOTE | 2020-05-30 15:40 | NUR ---
THIS NURSE CALLED REPORT TO PEDRO SWANN AT [facility]. SHIFT CAPTAIN ALSO NOTIFIED.
[2020-05-30 17:40] VITALS: BP 109/63
== END 2020-05-30 17:45 | DRG 896 ==
LOC: EDUNIT# 19:49 → ER FS 19:50 → ICU 05-21 00:30
PROVIDERS: ADMIT Internal Medicine; ATTEND Internal Medicine
PROC: 5A1955Z Respiratory Ventilation, Greater than 96 Consecutive Hours (ICD-10-PCS; principal; 2020-05-21)
PROC: 0BH17EZ Insertion of Endotracheal Airway into Trachea, Via Natural or Artificial Opening (ICD-10-PCS; 2020-05-21)
DX: F10.232 Alcohol dependence with withdrawal with perceptual disturbance (principal); J96.00 Acute respiratory failure, unspecified whether with hypoxia or hypercapnia; G93.41 Metabolic encephalopathy; G40.89 Other seizures; I25.119 Atherosclerotic heart disease of native coronary artery with unspecified angina pectoris; E83.42 Hypomagnesemia; E87.6 Hypokalemia; I95.9 Hypotension, unspecified; I10 Essential (primary) hypertension; J44.9 Chronic obstructive pulmonary disease, unspecified; F17.210 Nicotine dependence, cigarettes, uncomplicated; I73.9 Peripheral vascular disease, unspecified; E78.00 Pure hypercholesterolemia, unspecified; H91.92 Unspecified hearing loss, left ear; K21.9 Gastro-esophageal reflux disease without esophagitis; M19.91 Primary osteoarthritis, unspecified site; F32.9 Major depressive disorder, single episode, unspecified; Z86.73 Personal history of transient ischemic attack (TIA), and cerebral infarction without residual deficits; Z91.81 History of falling; Z97.4 Presence of external hearing-aid; Z79.82 Long term (current) use of aspirin; Z79.899 Other long term (current) drug therapy
CPT/HCPCS: 36415; 36569; 70450; 71045; 76937; 80048; 80053; 80320; 81000; 82805; 82962; 83735; 84100; 84132; 84478; 84484; 85025; 85610; 85730; 86703; 87070; 87081; 87088; 87205; 93005; 94002; 94003; 94799; 96374; 96375

== ENCOUNTER → 2020-09-24 | Outpatient (CLI) | payer MEDICARE ==
[~2020-09-24] MED LIST changes: +FOLI0.8T4 PO; -LISI-552 PO; +LISI20TA26 PO; +MAGN400T39 PO
--- NOTE | 2020-09-24 16:15 | Diagnostic Imaging Report ---
EXAMINATION: Ultrasound of the left breast limited. INDICATION: Left breast nipple discharge. FINDINGS: The mammogram performed prior to this study failed to show any sign of malignancy or of gynecomastia. On this exam, there is no discrete solid or cystic mass in the retroareolar region of the left breast. During the course of the exam, however, the patient was able to express a small amount of pus from the left nipple. Consequently, antibiotic therapy should be initiated if clinically indicated. IMPRESSION: 1. There is no evidence of malignancy or for gynecomastia. 2. The patient was able to express a small amount of pus from the left nipple. Recommendations as above. 3. These results were discussed with Dr. Irasema Akhtar. ACR BI-RADS Category 2: Benign findings. Dictated by: Dictated on workstation # [id number]
--- NOTE | 2020-09-25 09:54 | Diagnostic Imaging Report ---
EXAM: Diagnostic left mammogram INDICATION: Nipple discharge COMPARISON: There are no prior studies available for comparison. CC and MLO views of the left breast were obtained as well as an MLO view of the right breast. Reportedly, the patient has nipple discharge on the left. The left nipple does seem somewhat more prominent than the right nipple but there is no mass evident in the retroareolar region to account for the patient's nipple discharge. There is no sign of gynecomastia either. IMPRESSION: 1. The left nipple does seem somewhat more prominent than the right nipple but there is no other abnormality identified. 2. Ultrasound is pending for further study. ACR category 0 ACR BI-RADS Category 0: Incomplete. (Needs additional imaging evaluation). Result letter will be mailed to the patient. Note: At least 10% of breast cancer is not imaged by mammography. Dictated by: Dictated on workstation # [id number]
== END ==
LOC: RAD 13:37
PROVIDERS: ATTEND Family Medicine
DX: N64.52 Nipple discharge (principal)
CPT/HCPCS: 76642; 77065; G0279

== ENCOUNTER → 2020-10-03 | Outpatient (CLI) | payer MEDICARE ==
[~2020-10-03] MED LIST changes: +BARIUM for suspension 96% w/w (Vanilla Silq Medium Density) PO ONE; +BARIUM for suspension 98% w/w (Vanilla Silq High Density) PO ONE
--- NOTE | 2020-10-03 14:02 | Diagnostic Imaging Report ---
INDICATION: Dysphagia. TECHNIQUE: The patient ingested effervescent crystals as well as thin and thick barium and imaging over the esophagus was performed in multiple obliquities. 1 minute and 6 seconds of fluoroscopic time was utilized. 45 images were obtained. FINDINGS: The esophagus has a fairly smooth contour. No mass or stricture is identified. No gastroesophageal reflux was demonstrated. There is a small sliding-type hiatal hernia. IMPRESSION: Hiatal hernia. The study is otherwise unremarkable. Dictated by: Dictated on workstation # [id number]
== END ==
LOC: RAD 11:09
PROVIDERS: ATTEND Family Medicine
DX: K44.9 Diaphragmatic hernia without obstruction or gangrene (principal)
CPT/HCPCS: 74220

== ENCOUNTER → 2020-11-14 | Outpatient (CLI) | payer MEDICARE ==
[~2020-11-14] MED LIST changes: -BARIUM for suspension 96% w/w (Vanilla Silq Medium Density) PO ONE; -BARIUM for suspension 98% w/w (Vanilla Silq High Density) PO ONE
== END ==
LOC: LABNPT 15:06
PROVIDERS: ATTEND Family Medicine
DX: N61.0 Mastitis without abscess (principal)
CPT/HCPCS: 87070; 87205

== ENCOUNTER 2020-12-10 05:35 | Outpatient (CLI) | payer MEDICARE ==
[~2020-12-10] VITALS: Ht 175.3 cm; Wt 82.7 kg
== END 2020-12-10 10:44 | disposition home or self-care (01) ==
LOC: PREOP 05:35
PROVIDERS: ATTEND Surgery
DX: Z01.818 Encounter for other preprocedural examination (principal)

== ENCOUNTER 2020-12-18 10:59 | Day surgery (SDC) | payer MEDICARE ==
[2020-12-18] VITALS (15 sets, daily range): BP systolic 129–188; BP diastolic 72–96
[~2020-12-18] VITALS: Ht 175.3 cm; Wt 82.7 kg
[2020-12-18] MEDS ORDERED: ceFAZolin 2 GM IV Premixed 50 ML IV ONE (11:15)
[2020-12-18] MEDS ORDERED: LACTATED RINGERS 1,000 ML IV PRN (11:15)
[2020-12-18] MEDS ORDERED: ONDANSETRON 4 MG/2 ML (SDV) Z0FRAN ONE (11:20)
[2020-12-18] MEDS ORDERED: fentaNYL INJ 100 MCG/2 ML AMP ONE (11:20)
[2020-12-18] MEDS ORDERED: proPOfol 200 MG/20 ML (DIPRIVAN) VIAL IV ONE (11:20)
[2020-12-18] MEDS ORDERED: LIDOCAINE PF 2% 5 ML (XYLOCAINE) VIAL ONE (11:20)
[2020-12-18] MEDS ORDERED: MIDAZOLAM 2 MG/2 ML (VERSED) VIAL ONE (11:21)
--- NOTE | 2020-12-18 11:37 | Progress Note-Pre Operative ---
Pre-Operative Progress Note H&P Reviewed The H&P was reviewed, patient examined and no changes noted. Date Seen by Provider: Dec 18, 2020 Time Seen by Provider: 11:37 Date H&P Reviewed: Dec 18, 2020 Time H&P Reviewed: 11:37 Pre-Operative Diagnosis: left breast mass, nipple drainage HERMAN ALCANTARA DO Dec 18, 2020 11:37
[2020-12-18] MEDS ORDERED: METO50TA7 PO (11:41)
[2020-12-18] MEDS ORDERED: PANT40TA2 PO (11:41)
[2020-12-18] MEDS ORDERED: LIDOCAINE/EPI 1%-1:100,000 (XYLOCAINE) 20ML ONE (11:45)
[2020-12-18] MEDS ORDERED: SEVOFLURANE (ULTANE) 15 ML INHAL SOLN ONE (12:23)
[2020-12-18] MEDS ORDERED: ONDANSETRON 4 MG/2 ML (SDV) Z0FRAN IVP PRN (12:30)
[2020-12-18] MEDS ORDERED: morphine INJ 10 MG/ML 1ML (SYR OR VIAL) IVP ONE (12:30)
[2020-12-18] MEDS ORDERED: MEPERIDINE (DEMEROL) INJ 50 MG/ML IVP ONE (12:30)
[2020-12-18] MEDS ORDERED: diphenhydrAMINE 50 MG/ML INJ (BENADRYL) ONE ×2 (13:04→14:08)
[2020-12-18] MEDS ORDERED: TRM50T PO (13:20)
--- NOTE | 2020-12-18 13:21 | Discharge Inst-Simple/Standard ---
Discharge Inst-Standard Discharge Medications New, Converted or Re-Newed RX: Transmitted to Pharmacy Patient Instructions/Follow Up Plan of Care/Instructions/FU: 2 weeks Tootie Activity as Tolerated: No Discharge Diet: Regular Diet HERMAN ALCANTARA DO Dec 18, 2020 13:21
--- NOTE | 2020-12-18 13:22 | Discharge Inst-Simple/Standard ---
Discharge Inst-Standard Patient Instructions/Follow Up Plan of Care/Instructions/FU: 2 weeks Tootie Activity as Tolerated: No Discharge Diet: Regular Diet Other Inst to Patient Follow up Appt: Make appointment for 2 week. Instructions: No lifting greater than 10 pounds. No strenuous activity. May shower in 24 hours, no tub bath or soaking. Use incentive spirometer at home as directed. No Smoking Skin/Wound Care: You have special glue over your incision that will fall off on it's own. Symptoms to Report: Appetite Changes, Extremity Discoloration, Numbness/Tingling, Swelling Increased, Bleeding Excessive, Eyesight Changes, Pain Increased, Urine Color Change, Constipation(Persistent), Fever over 101 degree F, Pain/Pressure in chest, Urinating Difficulty, Cough Up/Vomit Blood, Heart Beat Irreg/Pounding, Pain/Pressure in jaw, Vaginal Bleeding Increase, Cramps in feet or legs, Lightheadedness, Pain/Pressure in shoulder, Diarrhea(Persistent), Memory Changes Suddenly, Questions/Concerns, Weight gain consecutive days, Dizziness/Fainting, Nausea/Vomiting, Shortness of Breath, Weight gain over 2 pounds If questions or concerns contact your physician Or seek help at emergency department. HERMAN ALCANTARA DO Dec 18, 2020 13:22
--- NOTE | 2020-12-18 13:34 | Progress Note-Post Operative ---
Post-Operative Progess Note Surgeon (s)/Power Plant Operator Apprentice (s) Surgeon HERMAN ALCANTARA DO Power Plant Operator Apprentice: na Pre-Operative Diagnosis left breast mass, nipple drainage Post-Operative Diagnosis same Procedure & Operative Findings Date of Procedure 12/18/20 Procedure Performed/Findings excisional biopsy left breast Anesthesia Type general Estimated Blood Loss Estimated blood loss (mL): minimal Specimens/Packing Specimens Removed left breast mass HERMAN ALCANTARA DO Dec 18, 2020 13:34
[2020-12-18] MEDS ORDERED: diphenhydrAMINE 50 MG/ML INJ (BENADRYL) IVP ONE (15:45)
--- NOTE | 2020-12-19 03:03 | OPERATIVE REPORT ---
DATE OF SERVICE: PREOPERATIVE DIAGNOSIS: Left breast mass with drainage from left nipple. POSTOPERATIVE DIAGNOSIS: Left breast mass with drainage from left nipple. PROCEDURE: Excisional biopsy of left breast mass 3.5 x 2.5 x 1 cm. SURGEON: Herman Sommers DO ANESTHESIA: General. ESTIMATED BLOOD LOSS: Minimal. COMPLICATIONS: None. INDICATIONS: The patient is a 70-year-old male with a palpable left breast mass. Mammography and ultrasonography not beneficial. The patient with nipple drainage from it as well at times. The patient was discussed risks and benefits of procedure and he wishes to proceed. Consent was signed in the chart. DESCRIPTION OF PROCEDURE: The patient was taken to the operating suite, was prepped and draped in sterile fashion. Timeout was performed. Local anesthetic was infiltrated around the left breast mass. A crestal incision was made around the left areola. Cautery was used to dissect around the mass, which was then removed in its entirety. Dimensions as noted above. The wound was then irrigated and suctioned. Hemostasis was achieved. The subcutaneous tissues were then reapproximated using 3-0 Vicryl and the skin was then closed using Skin Affix. The patient tolerated procedure well without any complications. He was taken to recovery room in stable condition. Job ID: [id number] DocumentID: [id number] Dictated Date: 12/18/2020 22:03:36 Engineer First Assistant Date: 12/19/2020 03:02:37 Dictated By: HERMAN SOMMERS DO
--- NOTE | 2020-12-24 20:06 | Anesthesia-General Post-Op ---
General Significant Intra-Op Events Notes Late entry: from 12/18 @1300 Patient Condition Mental Status/LOC: Same as Preop Cardiovascular: Satisfactory Nausea/Vomiting: Absent Respiratory: Satisfactory Pain: Controlled Complications: Absent Post Op Complications Complications None Follow Up Care/Instructions Patient Instructions None needed. Anesthesia/Patient Condition Patient Condition Patient is doing well, no complaints, stable vital signs, no apparent adverse anesthesia problems. DIANNE CR CRNA Dec 24, 2020 20:06
== END 2020-12-18 17:00 | disposition home or self-care (01) ==
LOC: SDC 10:59
PROVIDERS: ATTEND Surgery
DX: N62 Hypertrophy of breast (principal); N60.12 Diffuse cystic mastopathy of left breast; I10 Essential (primary) hypertension; I25.10 Atherosclerotic heart disease of native coronary artery without angina pectoris; F32.9 Major depressive disorder, single episode, unspecified; K21.9 Gastro-esophageal reflux disease without esophagitis; G93.41 Metabolic encephalopathy; Z79.899 Other long term (current) drug therapy; Z79.01 Long term (current) use of anticoagulants; Z87.891 Personal history of nicotine dependence; Z86.73 Personal history of transient ischemic attack (TIA), and cerebral infarction without residual deficits
CPT/HCPCS: 87081; 88305

== ENCOUNTER 2021-04-10 19:50 | Emergency (ER) | payer MEDICARE ==
[~2021-04-10] VITALS: Ht 175 cm; Wt 81.0 kg
[~2021-04-10 19:50] MED LIST changes: +METO50TA7 PO; +PANT40TA2 PO; +TRM50T PO
--- OUTSIDE RECORDS SUMMARY | 2021-04-10 19:55 | XMS REPORT | Clinical Summary ---
Author Author [facility] Organization [facility] Address Unknown Phone Unavailable Care Team Providers Care Coating Mixer Supervisor Name Role Phone Irasema Upton MD PCP Allergies Comments Active Allergy Reactions Severity Noted Date Hydrocodone 11/08/2016 Medications End Date Status Medication Sig Dispensed Refills Start Date Active omeprazole (PRILOSEC) 20 Take 20 mg by 0 MG capsule mouth daily. Active polyethylene glycol Take 1 packet 14 each 0 /2 (GLYCOLAX) 17 gram packet (17 g total) 7 by mouth 2 (two) times a day as needed. Active lisinopril Take 1 tablet 30 tablet 0 11/25/ (PRINIVIL,ZESTRIL) 40 MG (40 mg total) 7 tabletIndications: by mouth hypertension nightly. Active amLODIPine (NORVASC) 10 Take 1 tablet 30 tablet 0 11/24/201 MG tabletIndications: (10 mg total) 7 hypertension by mouth daily. Send refill requests to Dr. Irasema Upton Active atenolol (TENORMIN) 50 MG Take 1 tablet 30 tablet 0 tabletIndications: (50 mg total) 7 hypertension by mouth daily. Send refill requests to Dr. Irasema Upton Active FLUoxetine (PROZAC) 20 mg Take 1 30 capsule 0 capsule capsule (20 7 mg total) by mouth daily. Send refill requests to Dr. Irasema Upton Active pravastatin (PRAVACHOL) Take 1 tablet 30 tablet 0 40 MG tablet (40 mg total) 7 by mouth nightly. Send refill requests to Dr. Irasema Upton Active tamsulosin (FLOMAX) 0.4 Take 0.4 mg 0 mg Cp24 by mouth daily. Active Problems Problem Noted Date Tobacco abuse 11/17/2016 Last Assessment & Plan: Formatting of this note might be differ ent from the original. Nicotine patch Unsure if will quit, admits to cutting back at least Alcoholism 11/17/2016 Last Assessment & Plan: Formatting of this note might be differ ent from the original. 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 Non traumatic, With ataxia and vertigo Followed per NS no intervention indicat ed -F/U appointment with [facility] with repeat CT scan 4 weeks from 11/10/16 -No ASA or anticoagulants until after F/U -PT/OT/VTE rehab efforts per primary Essential hypertension 11/08/2016 Last Assessment & Plan: Formatting of this note might be differ ent from the original. Goal SBP < 160 SBP last 24 hours 125-159 - higher at n ight -Continue Norvasc 10 mg daily and Ateno lol 50mg daily -Change Lisinopril 40 mg daily to night ly to give him better PM coverage on his BPs - will start tomorrow 11/24 as h e already received his AM dose -Discontinued Hydralazine 11/18--he expr esses likely non compliance with greater than daily dosing -Cr stable 0.9 Hyponatremia 11/08/2016 Last Assessment & Plan: Formatting of this note might be differ ent from the original. RESOLVED Chronic in setting of ETOH abuse; BL 12 0's WNL 11/24 at 136 -monitor -consider fluid restriction if worsens while abstaining from ETOH Resolved Problems Problem Noted Date Resolved Date Insomnia, uncontrolled 11/12/2016 11/24/2016 Chronic obstructive pulmonary disease with acute exacerbati on 11/12/2016 11/19/2016 Hypoxia 11/09/2016 11/25/2016 Last Assessment & Plan: Formatting of this note might be differ ent from the original. 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 Continue with symptomatic treatment and supportive care, PRN antiemetics Family History Medical History Relation Name Comments No Known Problems Father Relation Name Status Comments Father Alive Social History Date Tobacco Use Types Packs/Day Years Used Started: 1979 Heavy Tobacco Smoker Cigarettes 3 37 Comments Alcohol Use Standard Drinks/Week 24-30 cans of beer daily Yes 24 (1 standard drink = 0.6 oz pure alcohol) Sex Assigned at Date Recorded Not on file Last Filed Vital Signs Reading Time Taken Comments Vital Sign 108/56 12/09/2016 12:56 PM CDT Blood Pressure 86 12/09/2016 12:56 PM CDT Pulse 36.6 C (97.8 F) 11/24/2016 7:48 AM CDT Temperature 20 11/24/2016 7:48 AM CDT Respiratory Rate 94% 11/24/2016 7:48 AM CDT Oxygen Saturation - - Inhaled Oxygen Concentration 103 kg (227 lb) 12/09/2016 12:56 PM CDT Weight 179.1 cm (5' 10.5") 12/09/2016 12:56 PM CDT Height 32.11 12/09/2016 12:56 PM CDT Body Mass Index Plan of Treatment Health Maintenance Due Date Last Done Comments Td/Tdap# 1950 Tobacco Cessation 1950 Counseling # Zoster Vaccine# (1 of 2) 1999 AAA 2014 Fall Risk Assessment # 2014 Pneumococcal Vaccine: 65+ 2014 Years (1 of 1 - PPSV23) Influenza Vaccine (#1) 2021 Results Not on filefrom Last 3 Months Insurance Type Payer Benefit Subscriber ID Effective Phone Address Plan / Dates Group Medicare MEDICARE MEDICARE [id number] 2014-P [place] PART A B resent [facility], [place] COMMERCIAL-NONCONTRACTED BANKERS [id number] [place] resent MEDICARE SUPPLEMENT CIGNA CIGNA [id number] 2016-P resent Advance Directives For more information, please contact: [phone] Patient Reactor Technician Explanation Type Date Recorded Advance Directives and Living Will Power of Staffing Analyst Date Inactivated Comments Code Status Date Activated 11/24/2016 2:55 PM Full Code 11/12/2016 2:18 PM 11/12/2016 2:18 PM Full Code 11/08/2016 3:10 PM
--- NOTE | 2021-04-10 19:59 | ED Neurological Problem ---
General Stated Complaint: STROKE SYMPTOMS History of Present Illness Date Seen by Provider: Apr 10, 2021 Time Seen by Provider: 19:54 Initial Comments 71-year-old male brought in by family from the long-term. Family reports that the long-term called this morning so that last night he was having some weakness on the right side and some slurred speech. That became a little bit worse throughout the day. Patient reports that when he walks he "drags his right foot. [facility]P states that he needed to feed himself with his left hand. Patient has a previous history of strokes on the left side x2. Patient is currently being medically managed for this. Allergies and Home Medications Allergies Coded Allergies: codeine (Verified Allergy, Unknown, nausea and vomiting, 05/20/20) hydrocodone (Verified Allergy, Unknown, nausea and vomiting, 05/20/20) Patient Home Medication List Home Medication List Reviewed: Yes Amlodipine Besylate (Amlodipine Besylate) 10 Mg Tablet, 10 MG PO DAILY, (Reported) Entered as Reported by: AMRITA MORGAN on 03/15/19 09 Clopidogrel Bisulfate (Plavix) 75 Mg Tablet, 75 MG PO DAILY, (Reported) Entered as Reported by: AMRITA MORGAN on 03/15/19 1120 Fluoxetine HCl (Prozac) 20 Mg Capsule, 20 MG PO DAILY, (Reported) Entered as Reported by: AMRITA MORGAN on 03/15/19 09 Lisinopril (Lisinopril) 20 Mg Tablet, 40 MG PO DAILY, (Reported) Entered as Reported by: AMRITA MORGAN on 03/15/19 09 Metoprolol Succinate (Metoprolol Succinate) 50 Mg Tab.er.24h, 50 MG PO DAILY, (Reported) Entered as Reported by: JAZMÍN MILLER on 12/18/20 1141 Pantoprazole Sodium (Protonix) 40 Mg Tablet.dr, 40 MG PO DAILY, (Reported) Entered as Reported by: JAZMÍN MILLER on 12/18/20 1141 Pravastatin Sodium (Pravastatin Sodium) 40 Mg Tablet, 40 MG PO DAILY, (Reported) Entered as Reported by: AMRITA MORGAN on 03/15/19 0944 Tramadol HCl (Tramadol HCl) 50 Mg Tablet, 50 MG PO Q4H PRN for PAIN-MODERATE (5- 7) Prescribed by: HERMAN ALCANTARA on 12/18/20 1320 Review of Systems Review of Systems Constitutional: see HPI, weakness Eyes: No Symptoms Reported Ears, Nose, Mouth, Throat: no symptoms reported Respiratory: no symptoms reported Cardiovascular: no symptoms reported Gastrointestinal: no symptoms reported Genitourinary: no symptoms reported Musculoskeletal: see HPI Psychiatric/Neurological: See HPI Past Ukrvoed-Zhmbqu-Gupfvd Hx Immunizations Up To Date Tetanus Booster (TDap): Unknown Seasonal Allergies Seasonal Allergies: No Past Medical History Surgeries: Yes Bowel Surgery, Cardiac, Eye Surgery, Orthopedic, Tonsillectomy Respiratory: Yes (ARF WITH HYPOXIA) Currently Using CPAP: No Currently Using BIPAP: No Cardiac: Yes (TACHYCARDIA) Angina, Coronary Artery Disease, High Cholesterol, Hypertension Neurological: Yes Stroke, TIA Genitourinary: No Gastrointestinal: Yes Gastroesophageal Reflux Musculoskeletal: Yes Arthritis, Back Injury Endocrine: No HEENT: Yes Hearing Impairment: Hearing Aide Left Cancer: No Psychosocial: Yes Depression Integumentary: No Blood Disorders: No Family Medical History No Pertinent Family Hx patient states he does not know Physical Exam Vital Signs Vital Signs - First Documented 04/10/21 04/10/21 19:58 20:03 Temp 36.8 Pulse 78 Resp 18 B/P (MAP) 177/92 Pulse Ox 93 O2 Delivery Room Air Capillary Refill : Height, Weight, BMI Height: 6'0" Weight: 199lbs. 0.7oz. 90.817653ov; 26.91 BMI Method:Stated General Appearance: WD/WN, no apparent distress HEENT: PERRL/EOMI Respiratory: lungs clear, normal breath sounds Cardiovascular: normal peripheral pulses, regular rate, rhythm, no edema Gastrointestinal: non tender, soft Extremities: normal range of motion Neurologic/Psychiatric: no motor/sensory deficits, alert, normal mood/affect, oriented x 3 Motor/Sensory: No weak motor strength LUE, No weak motor strength RLE, No weak motor strength LLE Stroke NIH Stroke Scale Assessment Level of Consciousness: 0=Alert (0), Level of Consciousness-Questions: 0=Answers both month/age (0), LOC Commands: 0=Performs both tasks (0), Gaze: Normal (0), Visual Jung: 0=No visual loss (0), Facial Movement (Facial Paresis): 0=Normal symmetrical mnt (0), Motor Function-Arms Right: 0=No drift (0), Motor Function-Arms Left: 0=No drift (0), Motor Function-Legs Right: 0=No drift (0), Motor Function-Legs Left: 0=No drift (0), Limb Ataxia: 0=Absent (0), Sensory: 1=Mild to Moderate loss (1), Best Language: 0=No aphasia (0), Dysarthria: 0=Normal (0), Extinction & Inattention: 0=No abnormality (0), Total: 1 Procedures/Interventions Date of ETT Placement: May 21, 2020 Time of ETT Placement: 515 Progress/Results/Core Measures Results/Orders Lab Results Laboratory Tests Test 04/10/21 20:00 Range/Units White Blood Count 8.6 4.3-11.0 10^3/uL Red Blood Count 4.73 4.30-5.52 10^6/uL Hemoglobin 14.5 13.3-17.7 g/dL Hematocrit 43 40-54 % Mean Corpuscular Volume 91 80-99 fL Mean Corpuscular Hemoglobin 31 25-34 pg Mean Corpuscular Hemoglobin Concent 34 32-36 g/dL Red Cell Distribution Width 13.3 10.0-14.5 % Platelet Count 281 130-400 10^3/uL Mean Platelet Volume 9.6 9.0-12.2 fL Immature Granulocyte % (Auto) 0 % Neutrophils (%) (Auto) 56 42-75 % Lymphocytes (%) (Auto) 27 12-44 % Monocytes (%) (Auto) 14 H 0-12 % Eosinophils (%) (Auto) 3 0-10 % Basophils (%) (Auto) 1 0-10 % Neutrophils # (Auto) 4.8 1.8-7.8 X 10^3 Lymphocytes # (Auto) 2.3 1.0-4.0 X 10^3 Monocytes # (Auto) 1.2 H 0.0-1.0 X 10^3 Eosinophils # (Auto) 0.3 0.0-0.3 10^3/uL Basophils # (Auto) 0.1 0.0-0.1 10^3/uL Immature Granulocyte # (Auto) 0.0 0.0-0.1 10^3/uL Sodium Level 142 135-145 MMOL/L Potassium Level 4.5 3.6-5.0 MMOL/L Chloride Level 107 98-107 MMOL/L Carbon Dioxide Level 23 21-32 MMOL/L Anion Gap 12 5-14 MMOL/L Blood Urea Nitrogen 24 H 7-18 MG/DL Creatinine 1.08 0.60-1.30 MG/DL Estimat Glomerular Filtration Rate 67 BUN/Creatinine Ratio 22 Glucose Level 131 H 70-105 MG/DL Calcium Level 9.5 8.5-10.1 MG/DL Corrected Calcium 9.3 8.5-10.1 MG/DL Magnesium Level 2.0 1.6-2.4 MG/DL Total Bilirubin 0.2 0.1-1.0 MG/DL Aspartate Amino Transf (AST/SGOT) 11 5-34 U/L Alanine Aminotransferase (ALT/SGPT) 11 0-55 U/L Alkaline Phosphatase 113 40-136 U/L Total Protein 7.3 6.4-8.2 GM/DL Albumin 4.2 3.2-4.5 GM/DL Serum Alcohol < 10 <10 MG/DL My Orders Orders - IVONNE WILSONVOR L DO Ct Head Wo-R/O Stroke (04/10/21 20:00) Alcohol (04/10/21 20:00) Cbc With Automated Diff (04/10/21 20:00) Comprehensive Metabolic Panel (04/10/21 20:00) Magnesium (04/10/21 20:00) Ua Culture If Indicated (04/10/21 20:00) Ekg Tracing (04/10/21 20:00) Chest 1 View Ap/Pa Only (04/10/21 20:00) Vital Signs/I&O 04/10/21 04/10/21 19:58 20:03 Temp 36.8 Pulse 78 82 Resp 18 16 B/P (MAP) 177/92 177/92 (120) Pulse Ox 93 94 O2 Delivery Room Air Room Air Progress Progress Note : Progress Note Patient with no obvious findings consistent with a significant stroke with an NIH of 1 for some mild decreased sensation in the right leg. Patient has no obvious weakness in upper or lower extremities no slurred speech. Patient with negative lab CT evaluation. I recommend the family that they follow-up with Dr. Calvillo next week and that they consider PT OT to evaluate and treat him at his assisted living/long-term facility. Patient stable and discharged Diagnostic Imaging Diagonstic Imaging: Xray Plain Films/CT/US/NM/MRI: chest Comments Date of Exam:04/10/21 CHEST 1 VIEW AP/PA ONLY INDICATION: Weakness. COMPARISON: Prior examination from 05/30/2020. FINDINGS: The heart size, mediastinal configuration, and pulmonary vascularity are within normal limits. There is no pleural effusion, pneumothorax, or pneumonia. The osseous structures are unremarkable. IMPRESSION: No acute cardiopulmonary abnormality. CT Read Date: Apr 10, 2021 CT Results/Progress Notes Date of Exam:04/10/21 CT HEAD WO-R/O STROKE PROCEDURE: CT head w/o r/o stroke. TECHNIQUE: Multiple contiguous axial images were obtained through the brain without the use of intravenous contrast. Auto Exposure Controls were utilized during the CT exam to meet ALARA standards for radiation dose reduction. INDICATION: CVA. FINDINGS: There is prominence of the ventricles and sulci. There is chronic microvascular ischemic disease. There is no hydrocephalus. There is no midline shift. There is no mass or extra-axial fluid collection. Sinuses and mastoid air cells are clear. IMPRESSION: Atrophy and chronic microvascular ischemic disease; otherwise, unremarkable CT head. Departure Impression Primary Impression: Weakness as late effect of cerebrovascular accident (CVA) Disposition: 01 HOME, SELF-CARE Condition: Stable Departure-Patient Inst. Referrals: NANDA CALVILLO MD (PCP/Family) Primary Care Physician Patient Instructions: Stroke Rehab Exercises, Generalized Weakness (DC), Transient Ischemic Attack (DC) Add. Discharge Instructions: Follow-up with Dr. Calvillo next week Consider physical therapy and Occupational Therapy at assisted living/long-term complex to help with debility TK WILSON DO Apr 10, 2021 19:59
[2021-04-10 20:06] LABS: BASOPHILS # (AUTO) 0.1 10^3/uL (0.0-0.1); BASOPHILS % (AUTO) 1 % (0-10); EOSINOPHILS # (AUTO) 0.3 10^3/uL (0.0-0.3); EOSINOPHILS % (AUTO) 3 % (0-10); HEMATOCRIT 43 % (40-54); HEMOGLOBIN 14.5 g/dL (13.3-17.7); LYMPHOCYTES # (AUTO) 2.3 X 10^3 (1.0-4.0); LYMPHOCYTES % (AUTO) 27 % (12-44); MEAN CORPUSCULAR HEMOGLOBIN 31 pg (25-34); MEAN CORPUSCULAR HGB CONC 34 g/dL (32-36); MEAN CORPUSCULAR VOLUME 91 fL (80-99); MEAN PLATELET VOLUME 9.6 fL (9.0-12.2); MONOCYTES # (AUTO) 1.2 X 10^3 (0.0-1.0); MONOCYTES % (AUTO) 14 % (0-12); NEUTROPHILS # (AUTO) 4.8 X 10^3 (1.8-7.8); NEUTROPHILS % (AUTO) 56 % (42-75); PLATELET COUNT 281 10^3/uL (130-400); WHITE BLOOD COUNT 8.6 10^3/uL (4.3-11.0)
[2021-04-10 20:22] LABS: ALANINE AMINOTRANSFERASE 11 U/L (0-55); ALBUMIN 4.2 GM/DL (3.2-4.5); ALKALINE PHOSPHATASE 113 U/L (40-136); BILIRUBIN,TOTAL 0.2 MG/DL (0.1-1.0); BUN/CREATININE RATIO 22; CALCIUM 9.5 MG/DL (8.5-10.1); CARBON DIOXIDE 23 MMOL/L (21-32); CHLORIDE 107 MMOL/L (98-107); CREATININE SERUM 1.08 MG/DL (0.60-1.30); GFR ESTIMATED 67; GLUCOSE 131 MG/DL (70-105); POTASSIUM 4.5 MMOL/L (3.6-5.0); SODIUM 142 MMOL/L (135-145); TOTAL PROTEIN 7.3 GM/DL (6.4-8.2)
--- NOTE | 2021-04-10 20:27 | Diagnostic Imaging Report ---
INDICATION: Weakness. COMPARISON: Prior examination from 05/30/2020. FINDINGS: The heart size, mediastinal configuration, and pulmonary vascularity are within normal limits. There is no pleural effusion, pneumothorax, or pneumonia. The osseous structures are unremarkable. IMPRESSION: No acute cardiopulmonary abnormality. Dictated by: Dictated on workstation # [id number]
--- NOTE | 2021-04-10 20:30 | Diagnostic Imaging Report ---
PROCEDURE: CT head w/o r/o stroke. TECHNIQUE: Multiple contiguous axial images were obtained through the brain without the use of intravenous contrast. Auto Exposure Controls were utilized during the CT exam to meet ALARA standards for radiation dose reduction. INDICATION: CVA. FINDINGS: There is prominence of the ventricles and sulci. There is chronic microvascular ischemic disease. There is no hydrocephalus. There is no midline shift. There is no mass or extra-axial fluid collection. Sinuses and mastoid air cells are clear. IMPRESSION: Atrophy and chronic microvascular ischemic disease; otherwise, unremarkable CT head. Dictated by: Dictated on workstation # [id number]
[2021-04-10 21:04] VITALS: BP 158/62
== END 2021-04-10 21:05 | disposition home or self-care (01) ==
LOC: EDUNIT# 19:50 → ER FS 19:52
DX: I63.9 Cerebral infarction, unspecified (principal); I10 Essential (primary) hypertension; K21.9 Gastro-esophageal reflux disease without esophagitis; F32.9 Major depressive disorder, single episode, unspecified; I25.10 Atherosclerotic heart disease of native coronary artery without angina pectoris; E78.00 Pure hypercholesterolemia, unspecified; Z86.73 Personal history of transient ischemic attack (TIA), and cerebral infarction without residual deficits; Z79.01 Long term (current) use of anticoagulants; Z79.899 Other long term (current) drug therapy
CPT/HCPCS: 36415; 70450; 71045; 80053; 83735; 85025; 93005; 99283; G0480; 80320

== ENCOUNTER → 2021-05-01 | Outpatient (CLI) | payer MEDICARE ==
[~2021-05-01] MED LIST changes: +GADOTERATE 0.5 MMOL/ML (CLARISCAN) 20 ML VIAL IV ONE; -MAGN400T8 PO; +MGX400T PO
--- NOTE | 2021-05-01 15:04 | Diagnostic Imaging Report ---
PROCEDURE: US carotid duplex, bilateral. TECHNIQUE: Multiple real-time grayscale images were obtained over the carotid arteries in various projections, bilaterally. Additional spectral analysis and color Doppler duplex images were also obtained. INDICATION: Recent stroke symptoms. History of a hypertension and tobacco use. Right-sided numbness/weakness. TECHNIQUE: Multiple real-time grayscale images were obtained over the carotid arteries in various projections bilaterally. Additional spectral analysis and color Doppler and Duplex images were also obtained. CORRELATION: None FINDINGS: Color images demonstrate moderate plaque-like formation throughout the bilateral common carotid arteries, carotid bulbs and into the internal and external carotid arteries. Right carotid circulation: The right common carotid artery is normal in course and caliber. The right internal carotid artery is patent. There is mild increased ICA/CCA ratio on the right up to 1.71. However, currently there is no hemodynamically significant stenosis present. Right external carotid artery is patent with mild increased velocity suggest at least mild narrowing. Left carotid circulation: The left common carotid artery is normal in course and caliber. The left internal carotid artery is patent. No hemodynamically significant stenosis is present at this time. Left external carotid artery is patent. Antegrade flow in the bilateral vertebral arteries. DOPPLER (peak systolic velocity M/S Right Left CCA 0.67 1.01 ICA Proximal 0.80 1.20 ICA Mid 1.15 0.93 ICA Distal 0.71 0.84 RATIO 1.71 1.19 ECA 1.70 1.19 VERT 0.41 0.74 IMPRESSION: 1. Moderate atherosclerosis involving bilateral common, internal and external carotid arteries. 2. Currently, no sonographic evidence to suggest a hemodynamically significant stenosis of the internal carotid arteries at this time. Given rather extensive disease, periodic surveillance follow-up assessment is recommended. Parameters based on the consensus panel Spencer-Scale and Doppler ultrasound criteria published May 2003, Radiology, Volume 229. Dictated by: Dictated on workstation # [id number]
--- NOTE | 2021-05-01 19:39 | Diagnostic Imaging Report ---
PROCEDURE: MR imaging of the brain with and without contrast. TECHNIQUE: Multiplanar, multisequence MR imaging of the brain was performed with and without contrast. INDICATION: Concern for acute ischemia. Focal neurologic deficit. COMPARISON: CT head on 04/10/2021. Findings: A small focus of acute/subacute ischemia is seen in the left irwin radiata. No associated hemorrhage or mass effect is seen. No abnormal enhancement is visualized. Old lacunar infarct is seen in the midbrain left of midline. Old lacunar infarcts are also seen in the bilateral thalami. Additional focal and confluent T2 hyperintense signal is seen throughout the periventricular and subcortical white matter. An area of susceptibility artifact is seen in the medial aspect of the left cerebellum, within the left thalamus, and in the left mesial temporal lobe. No midline shift or mass effect. The ventricles and cortical sulci are prominent. The basilar cisterns are symmetric and unremarkable. The sellar and suprasellar regions have a normal appearance. The major intracranial flow voids are intact. Mild mucosal thickening is seen in the ethmoid sinuses. A small left mastoid effusion is present. The globes and orbits are symmetric and unremarkable. The scalp and calvarium have a normal appearance. Impression: 1. Small focus of acute/subacute ischemia in the left irwin radiata. No associated hemorrhage or midline shift. 2. No abnormal enhancement in the brain. 3. Scattered areas of susceptibility artifact in the left cerebellum, left thalamus, and left mesial temporal lobe. Findings may represent areas of old hemorrhage versus cavernous malformations. 4. Generalized parenchymal volume loss with chronic microvascular disease. 5. Old lacunar infarcts in the bilateral thalami and midbrain left of midline. Dictated by: Dictated on workstation # [id number]
== END ==
LOC: RAD 12:30
PROVIDERS: ATTEND Family Medicine
DX: I63.50 Cerebral infarction due to unspecified occlusion or stenosis of unspecified cerebral artery (principal); I10 Essential (primary) hypertension; I65.23 Occlusion and stenosis of bilateral carotid arteries; G93.89 Other specified disorders of brain; Z72.0 Tobacco use
CPT/HCPCS: 70553; 93880

== ENCOUNTER → 2021-05-12 | Outpatient (CLI) | payer MEDICARE ==
[~2021-05-12] MED LIST changes: -GADOTERATE 0.5 MMOL/ML (CLARISCAN) 20 ML VIAL IV ONE
== END ==
LOC: CARD 12:52
PROVIDERS: ATTEND Family Medicine
DX: I51.7 Cardiomegaly (principal); I34.0 Nonrheumatic mitral (valve) insufficiency; I63.9 Cerebral infarction, unspecified
CPT/HCPCS: 93306